=== PATIENT | male | born 1935 | race Caucasian/White ===

== ENCOUNTER 2020-06-20 16:26 | Observation (INO) | payer MEDICARE, SELFPAY ==
[2020-06-20 16:26] VITALS: BP 147/87; PULSE 81; RESP 18; O2SAT 95
[2020-06-20 16:27] VITALS: BP 136/110; PULSE 82; RESP 22; TEMP 36.6; O2SAT 96; BMI 22.8
--- NOTE | 2020-06-20 17:29 | CT_ITS ---
STUDY: CT BRAIN WITHOUT CONTRAST REASON FOR EXAM: Male, 84 years old. FALL AT 8AM RADIATION DOSAGE (If Supplied By Facility): CTDIvol = ( 44.99 ) mGy, DLP = ( 829.85 ) mGycm TECHNIQUE: Transaxial CT imaging of the brain was performed without administration of intravenous contrast material. Individualized dose optimization techniques were used for this CT. COMPARISON: No relevant priors. FINDINGS: Normal soft tissue structures. Normal calvarium. There is moderate cerebral atrophy with widening of the extra-axial spaces and ventricular dilatation. Normal white matter tracts of the cerebral hemispheres. Normal basal ganglia and thalami. Normal brainstem. Normal cerebellum. There is no intracranial hemorrhage. There are no findings of an acute ischemic infarction. Normal visualized paranasal sinuses. CT/Brain/Head without Contrast IMPRESSION: Chronic involutional changes of the brain. Electronically Signed: Bobby Etienne MD at 19:00 EDT , Service support ,
--- NOTE | 2020-06-20 17:29 | EKG12_ITS ---
Test Reason : FELL Blood Pressure : / mmHG Vent. Rate : 077 BPM Atrial Rate : 077 BPM P-R Int : 132 ms QRS Dur : 080 ms QT Int : 394 ms P-R-T Axes : 003 -42 040 degrees QTc Int : 445 ms Normal sinus rhythm Left axis deviation Nonspecific ST and T wave abnormality Abnormal ECG Confirmed by VALENTINA MATTHEWS, YANN ([id number]), purchase request editor BLAKE CHAPARRO ([id number]) on 06/22/2020 12:41:26 PM Referred By: Mirella Bishop Confirmed By:YANN MONTGOMERY MD
--- NOTE | 2020-06-20 17:31 | CT_ITS ---
STUDY: CT CERVICAL SPINE WITHOUT CONTRAST REASON FOR EXAM: Male, 84 years old. FALL AT 8AM RADIATION DOSAGE (If Supplied By Facility): CTDIvol = ( 14.76 ) mGy, DLP = ( 343.67 ) mGycm TECHNIQUE: High resolution transaxial imaging was performed without contrast material. Sagittal and coronal images were reconstructed. Individualized dose optimization techniques were used for this CT. COMPARISON: None FINDINGS: Normal craniovertebral junction. Normal anterior atlantoaxial articulation. Normal odontoid process. Diffuse demineralization patchy lucencies throughout all vertebral bodies. Slight anterior wedging at C4. There is reversal of the normal cervical lordosis. Normal vertebral bodies and posterior osseous elements. Multilevel disc space narrowing. C2-3: Normal endplates. Normal disc height and morphology. Normal central canal and intervertebral neuroforamina. C3-4: Normal endplates. Normal disc height and morphology. Normal central canal and narrowed intervertebral neuroforamina. C4-5: Normal endplates. Normal disc height and morphology. Normal central canal and narrowed intervertebral neuroforamina. C5-6: Normal endplates. Normal disc height and morphology. Normal central canal and narrowed intervertebral neuroforamina. C6-7: Normal endplates. Normal disc height and morphology. Normal central canal and narrowed intervertebral neuroforamina. C7-T1: Normal endplates. Normal disc height and morphology. Normal central canal and narrowed intervertebral neuroforamina. Normal visualized soft tissue structures. CT/Spine Cervical without Contras IMPRESSION: Diffuse demineralization and possible lucencies or lytic changes suspicious for metastatic disease. Mild anterior wedging C4 vertebral body. Recommend follow up MRI cervical spine with and without contrast. Electronically Signed: Bobby Etienne MD at 19:08 EDT , Service support ,
--- NOTE | 2020-06-20 17:32 | RAD_ITS ---
STUDY: X-RAY - LEFT SHOULDER REASON FOR EXAM: Male, 84 years old. fall, pain TECHNIQUE: 2 view(s) of the shoulder. COMPARISON: None. FINDINGS: Normal glenohumeral articulation. Normal acromioclavicular joint. Normal acromion. Spurring of the humeral head. Normal humeral head and visualized proximal humerus. The soft tissue structures are unremarkable. Normal visualized pulmonary apex. RAD/Shoulder min 2 Views IMPRESSION: No fracture Electronically Signed: Bobby Etienne MD at 18:50 EDT , Service support ,
--- NOTE | 2020-06-20 17:32 | RAD_ITS ---
STUDY: X-RAY - RIGHT SHOULDER REASON FOR EXAM: Male, 84 years old. fall, pain TECHNIQUE: 2 view(s) of the shoulder. COMPARISON: 09-04-15 right shoulder FINDINGS: Normal glenohumeral articulation. Normal acromioclavicular joint. Normal acromion. Well-corticated defect humeral neck. Normal humeral head and visualized proximal humerus. The soft tissue structures are unremarkable. Normal visualized pulmonary apex. RAD/Shoulder min 2 Views IMPRESSION: Probable old humeral neck fracture. No acute fracture noted. Electronically Signed: Bobby Etienne MD at 18:53 EDT , Service support ,
--- NOTE | 2020-06-20 17:32 | RAD_ITS ---
STUDY: X-RAY - LEFT ELBOW REASON FOR EXAM: Male, 84 years old. fall, pain TECHNIQUE: 3 view(s) of the elbow. COMPARISON: None. FINDINGS: Normal visualized humerus, radius and ulna. Normal radiocapitellar and ulnotrochlear articulations. The soft tissue structures are unremarkable. RAD/Elbow min 3 Views IMPRESSION: Normal x-ray examination of the elbow. Electronically Signed: Bobby Etienne MD at 18:49 EDT , Service support ,
--- NOTE | 2020-06-20 17:34 | ED.VISSUMM ---
- ER Visit Summary Date of Service: 06/20/20 Chief Complaint: Fall History of Present Illness: The patient is a 84 M who presents for a fall that occurred this morning. Patient states he lost his balance and fell. Patient states he was unable to ambulate after the fall. Patient states the pain is worse over his back, bilateral shoulders, bilateral knees, and bilateral hips. Patient also admits to some pain in his neck. Patient describes the pain as throbbing. Patient states the pain is worse with weightbearing. Patient denies any head injury or loss of consciousness. Patient denies any syncopal episodes. Physical Examination: Vital signs are stable. Patient is afebrile. Patient is in no acute distress. Oral mucosa is pink and moist. Neck is supple. Trachea is midline. There is no JVD. Heart was regular rate and rhythm. Lungs are clear and equal bilaterally. Abdomen is soft. Bowel sounds are normal. There is no tenderness. Cranial nerves II through XII are intact. There are no focal motor or sensory deficits. Skill skeletal exam reveals tenderness over the right cervical paraspinal muscles. There is mild midline tenderness. There is also tenderness over the shoulders bilaterally. There is mild tenderness over the left elbow. There is adequate range of motion of the shoulders and elbows bilaterally. There is minimal tenderness over the knees bilaterally. There is no joint effusion noted. There is good range of motion. Radial and pedal pulses are equal bilaterally. There are no obvious deformities. Test Results: EKG showed normal sinus rhythm with a rate of 77. There are nonspecific ST - T wave changes. CBC shows a leukocytosis of 14.6. Hemoglobin was 16.6. Comprehensive metabolic profile showed a slightly elevated bilirubin of 2.1. The remaining liver function tests were within normal limits. Urinalysis does not show any evidence of urinary tract infection. Troponin was normal. CT scan of the brain was obtained. There are chronic changes. There is no acute intracranial abnormality. CT scan of the cervical spine was obtained. There is diffuse demineralization and possible lucencies or lytic changes suspicious for metastatic disease. X-rays of the shoulders bilaterally and left elbow were obtained. There is no acute fracture. These were all interpreted by the radiologist and reviewed by myself. Emergency Department Course and Treatment: Patient was given IV fluids. Patient was advised of his findings. Patient still feels weak and does not feel like he can ambulate. Case was discussed with the hospitalist, Dr. Bishop. She will admit the patient for observation. Patient understood and was agreeable with the plan. All questions were answered. Disposition: Admit to hospital Impression: Generalized weakness This note was generated with [employer] dictation software. It may contain incorrect words, spelling, and punctuation that were not noted in review of the chart prior to signing ED Disposition - Plan for ED Patient: Disposition: Acute Care Hospital [facility] Diagnosis: Generalized weakness Referrals: Denis Tanner III, MD [Primary Care Provider] -
--- NOTE | 2020-06-20 18:20 | RAD_ITS ---
STUDY: X-RAY CHEST REASON FOR EXAM: Male, 84 years old. fall, pain TECHNIQUE: Single frontal view of the chest. COMPARISON: 09-08-15 FINDINGS: Increased interstitial markings at the lung bases. There is no demonstrated pleural abnormality. Normal size heart. Normal mediastinum and faviola. Normal visualized pulmonary arteries. Normal visualized aortic arch and descending thoracic aorta. Normal visualized thoracic spine. Normal visualized ribs, clavicles, and shoulders. There is no demonstrated abnormality of the visualized soft tissue structures of the upper abdomen. RAD/Chest 1 View (Portable) IMPRESSION: Increased interstitial markings at the lung bases Electronically Signed: Bobby Etienne MD at 18:55 EDT , Service support ,
[2020-06-20 18:22] LABS: Absolute Lymphocyte Count 1.79 X10^3/uL (0.83-4.51); Absolute Neutrophil Count 11.1 X10^3/uL (2.0-7.7); Basophil# 0.04 X10^3/uL; Basophil% 0.3 % (0-1); Eosinophil# 0.12 X10^3/uL; Eosinophils% 0.8 % (0-5); Hematocrit 49.7 % (40-54); Hemoglobin 16.6 g/dL (13.0-16.5); Lymphocyte # 1.79 X10^3/ul (4.0); Lymphocyte % 12.3 % (19-41); Mean Corp Hgb Conc 33.4 g/dL (32-36); Mean Corpuscular Hgb 31.2 pg (27.0-32.0); Mean Corpuscular Volume 93.4 fL (80-94); Mean Platelet Vol. 10.3 fl (6.2-12.0); Monocyte# 1.47 X10^3/uL; Monocyte% 10.1 % (0-10); NRBC Flagged by Analyzer 0 % (0-5); Neutrophil # 11.12 X10^3/uL (2.7-7.7); Neutrophil % 76.1 % (47-70); Platelet Count 151 K/mm3 (150-450); RBC Distribution Width CV 13.9 % (11.6-14.6); RBC Distribution Width SD 47.8 fl (35.1-43.9); Red Blood Count 5.32 M/mm3 (4.6-6.2); White Blood Count 14.6 K/mm3 (4.4-11.0)
[2020-06-20 18:34] VITALS: BP 143/83; PULSE 99; RESP 24; O2SAT 96
[2020-06-20 19:51] LABS: ALB/GLOB Ratio 1.1 RATIO (0.9-2.4); Albumin, Serum 3.3 g/dL (3.2-5.0); BUN 20 mg/dL (7-18); BUN/Creat Ratio 26.3 RATIO (10-20); Calcium,Total 8.8 mg/dL (8.5-10.1); Creatinine, Serum 0.76 mg/dL (0.70-1.30); EST Glomerular Filtration Rate 104 mL/min (>60); Est Glom Filt Rate - Afr Amer 126 mL/min (>60); Estimated Creatinine Clearance 57.24 ml/min; Globulin 3.1 g/dL (2.2-4.2); Glucose 95 mg/dL (74-106); Protein, Total 6.4 g/dL (6.4-8.2)
[2020-06-20 19:52] LABS: AST(SGOT) 22 U/L (15-37); Alanine Aminotransfer ALT/SGPT 24 U/L (16-61); Alkaline Phosphatase 81 U/L (45-117); Anion Gap 10 (5-15); Chloride 114 mmol/L (98-107); Potassium 4.1 mmol/L (3.5-5.1); Sodium Level 145 mmol/L (136-145)
[2020-06-20 19:53] LABS: CPK Total, Creatine Kinase 130 U/L (39-308)
[2020-06-20 21:00] VITALS: BP 162/139; PULSE 73; RESP 26
[2020-06-20 22:05] LABS: Bacteria 0 SEEN /hpf (None Seen); Red Blood Cells-Urine 0 SEEN /hpf (0-5); Squamous Epithelial Cells - UA 0 SEEN /hpf (0-5)
[2020-06-20 22:11] LABS: Color, Urine Yellow (Yellow); Glucose, Dipstick Normal (Normal); Ketone-Dipstick Negative (Negative); Leukocyte Esterase-Dipstick 25 /ul (Negative); Nitrite-Dipstick Negative (Negative); Occult Blood-Urine 10 /ul (Negative); Protein-Dipstick 15 mg/dl (Negative); Urine Bilirubin Dipstick Negative (Negative); Urine Clarity Clear (Clear); Urine Urobilinogen Normal (Normal)
[2020-06-20 22:22] LABS: Mucous, Urine RARE /hpf (<or=2+); White Blood Cells 0-5 SEEN /hpf (0-5)
--- NOTE | 2020-06-20 22:42 | HP.PCM_ITS ---
History of Present Illness Date of Admission: 06/20/20 Chief Complaint: mechanical fall The patient is a 84 year old M with a past medical history as outlined was admitted through the ED on 06/20/2020 with a complaint of mechanical falls. Patient states he fell on the day prior to admission. He states he just felt weak and tripped and his knees gave way. He landed on the floor and was unable to get up until his daughter got home and called the squad. He denied any blurred vision, lightheadedness or dizziness, chest pain, and denies any passing out. He denies any palpitations, nausea vomiting. Review of symptoms otherwise negative. Patient states the last time he felt like this was about 5 years ago. He does admit to having a poor appetite. He denies any fever or chills or any frequency with urination. Review of symptoms otherwise negative. Vitals show temperature of 97.9 Fahrenheit with blood pressure of 162/139 with pulse rate of 73 respiratory rate of 26. He was saturating at 96% on room air. CBC showed WBC of 14.6 with hemoglobin of 16.6 and chemistry was essentially unremarkable apart from total bilirubin of 2.1. Initial troponin was less than 0.015. CT of the brain showed no acute intracranial process and showed chronic involutional changes and cervical spine CT showed diffuse demineralization and possible lucencies or lytic changes suspicious for metastatic disease with mild anterior wedging of the C4 vertebral body. This x-ray showed increased interstitial markings at the lung bases. He has been admitted to be managed for debility due to mechanical fall. 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 Denies: Chills, Fever, Weight Change Eyes: Denies: Blurred vision HEENT: Denies: Head Aches, Sinus Congestion, Sinus Drainage Cardiovascular: Denies: Chest Pain, Chest Pressure, Palpitations Respiratory: Denies: Cough, Shortness of Breath, Shortness of breath at rest, Shortness of breath upon exertion, Sputum production Gastrointestinal: Denies: Abdominal Pain, Nausea, Vomiting Genitourinary: Denies: Dysuria, Frequency Musculoskeletal: Denies: Joint Pain, Joint Tenderness Skin: Denies: Rash, Wounds Neurological: Denies: Numbness, Tingling, Focal weakness Psychiatric: Denies: Anxiety, Depression, Homicidal Ideations, Suicidal Ideations Hematologic/ Lymphatic: Denies: Easy Bruising, Easy Bleeding VTE Information - Inpt Only VTE Present on Admission: No VTE Pharm Prophylaxis ordered?: Yes Patient Problems: Active and Suspected Problems Generalized weakness (Acute) - Physical Exam Vitals/I&O's: Vital Signs Temp Pulse Resp BP Pulse Ox 97.9 F 73 26 H 162/139 H 96 06/20/20 16:27 06/20/20 21:00 06/20/20 21:00 06/20/20 21:00 06/20/20 18:34 Oxygen Delivery Method Room Air Weight: 159 lb 6.307 oz Body Mass Index (BMI) 22.8 General: Alert, Oriented x3, Cooperative, No apparent distress, Lethargic HEENT: Atraumatic, PERRLA, EOMI, Normocephalic Oral: Dry Mucosa Neck: Supple, No JVD, Negative Carotid Bruits Lungs: Clear to auscultation, Normal air movement, No rhonchi, No wheeze, No rales Cardiovascular: Regular rate, Regular Rhythm, Normal S1, Normal S2, No murmurs Abdomen: Bowel Sounds Present, Soft, Non Tender, Non-Distended, No Hepato- splenomegaly Extremities: No clubbing, No cyanosis, No edema, Capillary Refill Less than 3 Seconds Skin: No rashes, No breakdown Musculoskeletal: No Tenderness to Palpation of Joints or Extremities Lymphatic: No Cervical, Supraclavicular, or Inguinal Adenopathy Neurological: Cranial nerves II-XII grossly intact, Neuro grossly intact, Motor Exam 5/5 strength throughout Psych/Mental Status: Normal Affect, Appropriate, Alert and oriented to time, place, person, mood and affect Laboratory Results 06/20/20 18:00: WBC 14.6 H, RBC 5.32, Hgb 16.6 H, Hct 49.7, MCV 93.4, MCH 31.2, MCHC 33.4, RDW Std Deviation 47.8 H, RDW Coeff of Susan 13.9, Plt Count 151, MPV 10.3, Immature Gran % (Auto) 0.400, Neut % (Auto) 76.1 H, Lymph % (Auto) 12.3 L, Falls % (Auto) 10.1 H, Eos % (Auto) 0.8, Baso % (Auto) 0.3, Absolute Neuts (auto) 11.1 H, Absolute Lymphs (auto) 1.79, Nucleated RBC % 0 06/20/20 18:00: Sodium 145, Potassium 4.1, Chloride 114 H, Carbon Dioxide 21.0, Anion Gap 10, BUN 20 H, Creatinine 0.76, Estim Creat Clear Calc 57.24, Est GFR (MDRD) Af Amer 126, Est GFR (MDRD) Non-Af 104, BUN/Creatinine Ratio 26.3 H, Glucose 95, Calcium 8.8, Total Bilirubin 2.10 H, AST 22, ALT 24, Alkaline Phosphatase 81, Troponin I < 0.015, Total Protein 6.4, Albumin 3.3, Globulin 3.1, Albumin/Globulin Ratio 1.1 06/20/20 18:00: Total Creatine Kinase 130 06/20/20 22:00: Urine Color Yellow, Urine Clarity Clear, Urine pH 5.0, Ur Specific [place] 1.020, Urine Protein 15 H, Urine Glucose (UA) Normal, Urine Ketones Negative, Urine Occult Blood 10 H, Urine Nitrite Negative, Urine Bilirubin Negative, Urine Urobilinogen Normal, Ur Leukocyte Esterase 25 H, Urine RBC 0 SEEN, Urine WBC 0-5 SEEN, Ur Squamous Epith Cells 0 SEEN, Urine Bacteria 0 SEEN, Urine Mucus RARE Diagnostic Data Brain CT 06/20/20 17:29 IMPRESSION: Chronic involutional changes of the brain. Electronically Signed: Bobby Etienne MD at 19:00 EDT , Service support , Cervical Spine CT 06/20/20 17:31 IMPRESSION: Diffuse demineralization and possible lucencies or lytic changes suspicious for metastatic disease. Mild anterior wedging C4 vertebral body. Recommend follow up MRI cervical spine with and without contrast. Electronically Signed: Bobby Etienne MD at 19:08 EDT , Service support , Elbow X-Ray 06/20/20 17:32 IMPRESSION: Normal x-ray examination of the elbow. Electronically Signed: Bobby Etienne MD at 18:49 EDT , Service support , Shoulder X-Ray 06/20/20 17:32 IMPRESSION: Probable old humeral neck fracture. No acute fracture noted. Electronically Signed: Bobby Etienne MD at 18:53 EDT , Service support , Chest X-Ray 06/20/20 18:20 IMPRESSION: Increased interstitial markings at the lung bases Electronically Signed: Bobby Etienne MD at 18:55 EDT , Service support , Assessment/Plan All Active Problems Generalized weakness (Acute) Fracture, intertrochanteric, right femur (Acute) Fracture of neck of humerus (Acute) Normocytic anemia due to blood loss (Acute) Depression (Acute) Suicidal ideation (Acute) 84 y/o admitted with a complaint of mechanical fall 1. Debility due to mechanical fall * admit to [facility] * brain CT showed no acute intracranial [process * CT of the cervical spine showed diffuse demineralisation and possible lucencies or lytic changes suspicious for metastatic disease, as wella s mild anterior wedging of C4 vertebral body * consult PT/OT * fall precautions * PO tylenol for pain and IV morphine as well as PO oxycodone prn for pain * 2. SIRS criteria * wbc is 14.6 and patient has RR Of 16 * CXR showed increased interstitial markings at the lung base, with no evidence of pneumonia. He also denies being short of breath * UA showed no evidence of UTI * will monitor for now; wbc may be reactive. consider starting antibiotics if wbc trends upwards * 3. ?Metastatic bone lesion * CT cervical spine findings as above * patient has never had a colonoscopy, and denies any urinary findings. * per discussion with patient and his daughter, patient doesnt want any further workup of the cervical spine findings, as he wouldnt want to be treated for any cancer that can possibly be found. He would prefer to just leave things as is. * We will therefore not work-up for any possible source of cancer. * DVT prophylaxis: Lovenox CODE STATUS: DNR CCA * Patient and daughter counseled extensively about different types of CODE STATUS including full code, DNR CCA and DNR CCA. Patient elects to be DNRCCA. * Total [id number] time 17 minutes. OBSV E&M: 48309 Initial observation care L2 Procedures: 11530 Advncd Care Plan 30 Min
[2020-06-20 23:00] VITALS: BP 147/67; PULSE 74; RESP 19; TEMP 36.6; O2SAT 97
[2020-06-21] VITALS (10 sets, daily range): BP systolic 97–149; BP diastolic 47–103; PULSE 64–77; RESP 16–18; TEMP 36.6–36.9; O2SAT 93–97; BMI 19.1; BMI 19.2
[2020-06-21] MEDS: Acetaminophen 325 MG Tablet 650 MG PO ×2 (00:46→16:06)
[2020-06-21 05:59] LABS: Absolute Lymphocyte Count 1.93 X10^3/uL (0.83-4.51); Basophil# 0.06 X10^3/uL; Basophil% 0.6 % (0-1); Eosinophil# 0.22 X10^3/uL; Eosinophils% 2.4 % (0-5); Hematocrit 42.8 % (40-54); Hemoglobin 14.3 g/dL (13.0-16.5); Lymphocyte # 1.93 X10^3/ul (4.0); Lymphocyte % 20.9 % (19-41); Mean Corp Hgb Conc 33.4 g/dL (32-36); Mean Corpuscular Hgb 31.5 pg (27.0-32.0); Mean Corpuscular Volume 94.3 fL (80-94); Mean Platelet Vol. 10.1 fl (6.2-12.0); Monocyte# 0.98 X10^3/uL; Monocyte% 10.6 % (0-10); NRBC Flagged by Analyzer 0 % (0-5); Neutrophil # 6.02 X10^3/uL (2.7-7.7); Neutrophil % 65.2 % (47-70); Platelet Count 135 K/mm3 (150-450); RBC Distribution Width CV 14.1 % (11.6-14.6); RBC Distribution Width SD 48.1 fl (35.1-43.9); Red Blood Count 4.54 M/mm3 (4.6-6.2); White Blood Count 9.2 K/mm3 (4.4-11.0)
[2020-06-21 06:18] LABS: Anion Gap 4 (5-15); BUN 19 mg/dL (7-18); BUN/Creat Ratio 28.3 RATIO (10-20); Calcium,Total 8.2 mg/dL (8.5-10.1); Chloride 115 mmol/L (98-107); Creatinine, Serum 0.67 mg/dL (0.70-1.30); EST Glomerular Filtration Rate 120 mL/min (>60); Est Glom Filt Rate - Afr Amer 145 mL/min (>60); Estimated Creatinine Clearance 47.98 ml/min; Glucose 106 mg/dL (74-106); Sodium Level 142 mmol/L (136-145)
--- NOTE | 2020-06-21 10:00 | CASEMGMT ---
RN TRACE Face to Face with patient for initial transition planning/care coordination assessment. RN CM introduced self and role at [facility]. Patient lying in bed, alert and oriented. Patient willing to participate in assessment and is able to answer all questions appropriately. Care providers, pharmacy, and demographics verified. Patient wishes to discharge home, will possibly go to SNF if recommended. Patient states he has no further needs or concerns at this time. CM to follow for discharge planning needs that may arise. PCP: Flores Specialists: None Preferred Pharmacy: [facility] Insurance: [employer] [facility] Prescription Benefit: yes Living Will/HPOA: yes, daughter Frantz Kapoor LNOK: daughter Living Arrangements: Patient lives with daughter in a 2 story home with bed and bath on first floor. Patient states he is independent for self care at home. Transportation: daughter DME/HHC: Patient states he has grab bars, shower chair, and walker at home. Patient has been to [facility] in the past. Patient denies previous C. Disposition Plan: TBD by course of treatment and how patient progresses with therapy. Shirley BROCK, RN, CM
--- NOTE | 2020-06-21 11:19 | CASEMGMT ---
Addendum entered by Shirley Salazar 06/21/20 15:34: SW updated that pt will be speaking to his daughter regarding possible SNF placement. SW to follow up with pt tomorrow. Addendum entered by Shirley Salazar 06/21/20 13:12: SW received message from Kathi at [facility] who states administration has stated that [facility] is to not take [place] patients at this time. SW received call from Liliane in TCU who states [facility] doesn't have any beds available until Saturday. SW back in to speak with pt. SW updated pt that [facility] and [facility] is not able to accept pt. SW asked pt for additional choices, pt states he has none. SW informed pt that it took two people to get him up today and asked how pt is going to manage that at home and if pt was back to his baseline. Pt states well no I don't think I am back to my baseline. SW informed pt then that he should consider going somewhere for short term rehabilitation. Pt again denied. CHEMA asked pt about HHC then and pt states I don't know if I need that. CHEMA informed pt that SW and RN TRACE can see how pt does tomorrow with PT/OT. Pt states understanding. Original Note: Social Work Note SW updated that pt worked with PT/OT recommendation is SNF. SW in to speak with pt. CHEMA introduced self and role at [facility]. Pt is alert and orientated x3. CHEMA spoke with pt regarding SNF. Pt states the only SNF I would consider is [facility] as my is there. CHEMA asked pt about returning to [facility] as he has been there before and pt denied. CHEMA explained referral process and that pt would need pre-cert. CHEMA placed a call to [facility], left message for admissions. CHEMA also placed a call to Liliane in TCU and left message inquiring about bed availability. SW waiting for call back. Plan: TBD Shirley Salazar TEAMCENTER SOLUTION ARCHITECT, SERVICE CENTER TECHNICIAN
[2020-06-21 14:45] LABS: Probe Check PASS; Specimen Processing Control PASS
--- NOTE | 2020-06-21 15:55 | CASEMGMT ---
BOWMAN form completed at this time. Patient voiced understanding and signed form. Signed form placed on chart, copy provided to patient. Patient voice no concerns or questions at this time.
--- NOTE | 2020-06-21 18:01 | PCM.PROGNOTE ---
Patient Problems: Active and Suspected Problems Generalized weakness (Acute) Subjective: Patient was seen and examined today, he will be in need of short-term rehab services, initially the patient wanted to go to [facility] long-term [facility] but his insurance does not cover this facility, he does not want to go to [facility] [place] and he defers to his daughter to make a decision about what long term he will go to. Patient has no complaints of any shortness of breath or chest discomfort today, his affect is flat. - Physical Exam Vitals/I&O's: Vital Signs Temp Pulse Resp BP Pulse Ox 98.3 F 77 16 127/75 H 96 06/21/20 16:01 06/21/20 16:01 06/21/20 16:01 06/21/20 16:01 06/21/20 16:01 Oxygen Delivery Method Room Air Weight: 60.6 kg Body Mass Index (BMI) 19.1 Intake and Output for Last 24 Hours 06/19/20 06/20/20 06/21/20 23:59 23:59 23:59 Intake Total 500 / 500 Balance 500 / 500 General: Alert, Oriented x3, Cooperative, No apparent distress, Well developed HEENT: Atraumatic, PERRLA, EOMI, Normocephalic Oral: Moist Mucosa Neck: Supple, No JVD, Trachea Midline, Thyroid Normal Size and Texture Lungs: Clear to auscultation, Normal air movement, No rhonchi, No wheeze, No rales Cardiovascular: Regular rate, Regular Rhythm, Normal S1, Normal S2, No murmurs, PMI Normal, No rub noted, No Gallop Abdomen: Bowel Sounds Present, Soft, Non Tender, Non-Distended, No hernias noted Extremities: No clubbing, No edema, Capillary Refill Less than 3 Seconds Skin: No rashes, No breakdown Musculoskeletal: No Tenderness to Palpation of Joints or Extremities Neurological: Cranial nerves II-XII grossly intact, Neuro grossly intact, Sensory exam intact to light touch and pain, Coordination normal Psych/Mental Status: Normal Affect, Appropriate, Alert and oriented to time, place, person, mood and affect Laboratory Results 06/20/20 18:00: WBC 14.6 H, RBC 5.32, Hgb 16.6 H, Hct 49.7, MCV 93.4, MCH 31.2, MCHC 33.4, RDW Std Deviation 47.8 H, RDW Coeff of Susan 13.9, Plt Count 151, MPV 10.3, Immature Gran % (Auto) 0.400, Neut % (Auto) 76.1 H, Lymph % (Auto) 12.3 L, [place] % (Auto) 10.1 H, Eos % (Auto) 0.8, Baso % (Auto) 0.3, Absolute Neuts (auto) 11.1 H, Absolute Lymphs (auto) 1.79, Nucleated RBC % 0 06/20/20 18:00: Sodium 145, Potassium 4.1, Chloride 114 H, Carbon Dioxide 21.0, Anion Gap 10, BUN 20 H, Creatinine 0.76, Estim Creat Clear Calc 57.24, Est GFR (MDRD) Af Amer 126, Est GFR (MDRD) Non-Af 104, BUN/Creatinine Ratio 26.3 H, Glucose 95, Calcium 8.8, Total Bilirubin 2.10 H, AST 22, ALT 24, Alkaline Phosphatase 81, Troponin I < 0.015, Total Protein 6.4, Albumin 3.3, Globulin 3.1, Albumin/Globulin Ratio 1.1 06/20/20 18:00: Total Creatine Kinase 130 06/20/20 22:00: Urine Color Yellow, Urine Clarity Clear, Urine pH 5.0, Ur Specific [place] 1.020, Urine Protein 15 H, Urine Glucose (UA) Normal, Urine Ketones Negative, Urine Occult Blood 10 H, Urine Nitrite Negative, Urine Bilirubin Negative, Urine Urobilinogen Normal, Ur Leukocyte Esterase 25 H, Urine RBC 0 SEEN, Urine WBC 0-5 SEEN, Ur Squamous Epith Cells 0 SEEN, Urine Bacteria 0 SEEN, Urine Mucus RARE 06/21/20 05:34: WBC 9.2, RBC 4.54 L, Hgb 14.3, Hct 42.8, MCV 94.3 H, MCH 31.5, MCHC 33.4, RDW Std Deviation 48.1 H, RDW Coeff of Susan 14.1, Plt Count 135 L, MPV 10.1, Immature Gran % (Auto) 0.300, Neut % (Auto) 65.2, Lymph % (Auto) 20.9, [place] % (Auto) 10.6 H, Eos % (Auto) 2.4, Baso % (Auto) 0.6, Absolute Neuts (auto) 6.0, Absolute Lymphs (auto) 1.93, Nucleated RBC % 0 06/21/20 05:34: Sodium 142, Potassium 4.0, Chloride 115 H, Carbon Dioxide 23.0, Anion Gap 4 L, BUN 19 H, Creatinine 0.67 L, Estim Creat Clear Calc 47.98, Est GFR (MDRD) Af Amer 145, Est GFR (MDRD) Non-Af 120, BUN/Creatinine Ratio 28.3 H, Glucose 106, Calcium 8.2 L 06/21/20 13:15: COVID-19 (RADHA) Negative Current Medications Acetaminophen (Tylenol) 650 mg PO Q6H PRN PRN PRN Reason: Pain Score 1-10/Temp > 100.7 F Last Admin: 06/21/20 16:06 Dose: 650 mg Documented by: Dextrose (D50w Syringe) 0 gm IV X1 PRN; Protocol PRN Reason: Hypoglycemia Glucagon () 1 mg IM .X1 PRN PRN Reason: Hypoglycemia Oxycodone HCl (Oxyir) 10 mg PO Q4H PRN PRN PRN Reason: Pain Score 4-10/10 Sodium Chloride () 10 - 40 ml IV UD PRN PRN Reason: SALINE FLUSH Medical Necessity - Tobacco Use Smoking Status: Former smoker Tobacco Use: Cigarettes Assessment/Plan All Active Problems Generalized weakness (Acute) Fracture, intertrochanteric, right femur (Resolved) Fracture of neck of humerus (Resolved) Normocytic anemia due to blood loss (Resolved) #1 generalized debility-patient will continue to see PT and OT, he will need temporary placement in a long-term facility #2 leukocytosis-resolved at this time, etiology unknown #[address] scan of neck indicating diffuse demineralization and possible lucencies or lytic changes suspicious for metastatic disease-according to the medical record, patient and the patient's daughter do not want this worked up at this time. OBSV E&M: 14473 Subsequent observation care L2
--- NOTE | 2020-06-21 18:15 | NURSING ---
[facility] Dtr present at desk and talking on phone to Dr. Lam at this time.
[2020-06-21] MEDS: 0.9% Saline Lock 10 ML Syringe IV (22:27)
[2020-06-22 04:58] VITALS: BP 105/62; PULSE 65; RESP 16; TEMP 37; O2SAT 95
[2020-06-22] MEDS: Acetaminophen 325 MG Tablet 650 MG PO (05:05)
--- NOTE | 2020-06-22 09:11 | CASEMGMT ---
Addendum entered by Shirley Salazar 06/22/20 14:31: Pt is likely discharging to TCU today. CHEMA placed a call to Liliane in TCU and updated her. CHEMA placed a call to pt's daughter Frantz and left message regarding likely discharge to TCU today. SW updated pt. Pt states understanding. Green sheet on chart as this worker is leaving soon for the day. Plan: TCU today Addendum entered by Shirley Salazar 06/22/20 13:12: SW received message from Liliane in TCU stating pre-cert has been obtained and pt is able to discharge today. CHEMA updated physician. Addendum entered by Shirley Salazar 06/22/20 11:27: SW received call from pt's daughter Frantz. CHEMA updated Frantz that a bed opened up at TCU here at [facility] and pt prefers to stay at [facility] TCU for rehabilitation. Frantz agreeable to TCU as well. CHEMA explained pre-cert process and that pt will remain at [facility] until pre-cert is obtained and then go over to TCU. CHEMA did fabrizio speak with Frantz regarding discharge plans from TCU including home with HHC, outpatient therapy, assisted living, long term care social worker care at [facility] etc. Frantz states understanding. Original Note: Social Work Note CHEMA spoke with Liliane in TCU again regarding bed availability. Liliane states she actually would have a bed available today or tomorrow for pt now. SW in to speak with pt. CHEMA updated pt that TCU at [facility] now has a bed available. Pt agreeable to [facility] TCU. Pt gave this worker permission to call his daughter to update her. CHEMA placed a call to pt's daughter, no answer, SW left message. CHEMA placed a call to Liliane in TCU and asked Liliane to submit for pre-cert. Plan: TCU pending pre-cert Shirley Salazar DELIVERY DRIVER ASSISTANT, NUT STEAMER
[2020-06-22 09:43] VITALS: BP 96/56; PULSE 67; RESP 18; TEMP 36.3; O2SAT 96
[2020-06-22] MEDS: oxyCODONE 5 MG Tablet 10 MG PO (09:47)
[2020-06-22 14:17] VITALS: BP 105/51; PULSE 61; RESP 16; TEMP 36.4; O2SAT 96
--- NOTE | 2020-06-22 16:29 | PCM.TXEXTCAR ---
- Diet 06/21/20 14:14 Diet: Regular Diet Food consistency:: Mechanical Soft/Ground Liquid Consistency:: Regular/Thin Type of Dietary Supplement:: Ensure Complete Is pt able to select menu?: No Diet Comments: very soft foods/ground meat/ edentulous - Routine Orders/Code [facility] - Wound(s) Left Elbow Wound Type: scabbed area - Therapies Physical Therapy: Eval and Treat Occupational Therapy: Eval and Treat - Problem/Diagnosis (1) Abnormal CT scan, cervical spine Status: Acute Comment: PATIENT WANTS NO WORKUP FOR THIS, SUSPICIOUS FOR POSSIBLE METASTAtIC CANCER Current Visit: Yes (2) Osteoarthritis Status: Acute Current Visit: Yes (3) Generalized weakness Status: Acute Comment: DEBILITY Current Visit: Yes - Allergies/Procedures Done in Hospital Allergies/Adverse Reactions: Allergies venom-honey bee [bee venom (honey bee)] Allergy (Verified 06/20/20 16:27) Anaphylaxis Procedures: None - Type of Care/Length of Stay Estimated LOS: Convalescent Care Less Than 30 days Type of Care Needed: Skilled Rehab Potential: Good Prognosis: Good - Additional Orders/Day of Discharge H&P will serve as current which was dated: 06/20/20 Day of Discharge: 06/22/20 - Dietary and Speech Recommendations Dietitian Recommendations/Changes: Will liberalize diet to regular to optimize intake. Continue Ensure at meals for additional stanley/protein needs. - Follow Up Care Primary Care Physician: Denis Tanner III, MD [Primary Care Provider] -
--- NOTE | 2020-06-24 08:44 | PCM.DC.SUM ---
Discharge Date and Diagnosis - Problem List Patient Problems: Active and Suspected Problems Debility (Acute) Fall (Acute) Weakness of both legs (Acute) Bony metastasis (Acute) Date of Admission: 06/20/20 Date of Discharge: 06/22/20 - Primary Discharge Diagnosis Acute Problems: Active Problems #1 generalized debility-patient will continue to see PT and OT, he will need temporary placement in a senior living facility #2 leukocytosis- etiology unknown #[address] scan of neck indicating diffuse demineralization and possible lucencies or lytic changes suspicious for metastatic disease Hospital Course and Treatment Operations: None, - - 09/05/15 Operative intervention w/ right hip open reduction and internal fixation with short intramedullary nailing performed. Procedures: None Summary of Care Provided: The patient is a 84 year old M was seen in the emergency room at [facility] after suffering a fall at his home, work-up in the emergency room revealed no acute fractures, however, the CT of the cervical spine there is noted to be evidence of lytic lesions suggesting a bony metastases. Patient did not want a work-up for this and to his daughter agreed. Patient was placed in observation status on [facility] 3, PT and OT saw the patient and recommended skilled therapy, patient agreed to go to an extended care facility for short-term rehab services. On 06/22/2020, patient was seen and examined: On examination he appeared frail and older than his stated age. Vital signs as documented. Skin warm and dry and without overt rashes. Neck without JVD, neck was supple, trachea midline, thyroid was normal. Lungs clear bilaterally, normal air movement was noted. Heart exam notable for regular rhythm, normal sounds and absence of murmurs, rubs or gallops. Abdomen unremarkable and without evidence of organomegaly, masses, or abdominal aortic enlargement. Bowel sounds are present, abdomen is not distended. Extremities nonedematous, no cyanosis was noted, no clubbing was noted. Neuro: Cranial nerves II through XII are grossly intact, no focal motor deficits were noted, sensation to light touch and pinprick intact, motor exam 5/5 throughout. Psych: Patient is alert and oriented x3, he does not appear anxious or depressed, he does not appear agitated. Patient was transferred to the rehab unit at [facility] for further skilled inpatient services on 06/22/2020. Patient Problems: Active and Suspected Problems Debility (Acute) Fall (Acute) Weakness of both legs (Acute) Bony metastasis (Acute) - Physical Exam Vitals/I&O's: Vital Signs Temp Pulse Resp BP Pulse Ox 97.5 F L 61 16 105/51 L 96 06/22/20 14:17 06/22/20 14:17 06/22/20 14:17 06/22/20 14:17 06/22/20 14:17 Oxygen Delivery Method Room Air Weight: 60.6 kg Body Mass Index (BMI) 19.1 Intake and Output for Last 24 Hours 06/22/20 06/23/20 06/24/20 23:59 23:59 23:59 Intake Total 400 / 400 Output Total 250 / 250 Balance 150 / 150 Home Medications: Medications to take at Discharge Acetaminophen [Tylenol Tablet] 650 mg PO Q6H PRN PRN tab 06/22/20 Hydrocodone/Acetaminophen [[place] 5-325 Tablet] 1 ea PO Q4H PRN PRN #10 tab 06/22/20 Following Prescriptions Were Given to Patient: Hydrocodone/Acetaminophen [[place] 5-325 Tablet] 1 ea PO Q4H PRN PRN #10 tab PRN Reason: Pain Score 1-10/10 Prescription Printed Primary Care Physician: Denis Tanner III, MD [Primary Care Provider] - Disposition: Longterm facility Minutes spent on discharge:: 31 Patient Condition:: Stable Medical Necessity - Tobacco Use Smoking Status: Former smoker Tobacco Use: Cigarettes Meaningful Use Info Meaningful Use Diagnoses (Choose all that apply): None applicable OBSV E&M: 82088 Observation care discharge
== END 2020-06-22 18:45 | disposition skilled nursing facility (03) ==
LOC: ED 22:48 → MS3 23:44
PROVIDERS: Admitting Provider Student in an Organized Health Care Education/Training Program; Emergency Provider Emergency Medicine; PCP Family Medicine; Referring Provider Student in an Organized Health Care Education/Training Program; Visit Provider Internal Medicine
DX: R53.81 Other malaise (principal); C79.51 Secondary malignant neoplasm of bone; D72.829 Elevated white blood cell count, unspecified; R94.8 Abnormal results of function studies of other organs and systems; M25.512 Pain in left shoulder; M25.511 Pain in right shoulder; M25.552 Pain in left hip; M25.551 Pain in right hip; M25.562 Pain in left knee; M25.561 Pain in right knee; M54.2 Cervicalgia; Z87.891 Personal history of nicotine dependence; R53.1 Weakness
CPT/HCPCS: 70450; 71045; 72125; 73030; 73080; 80048; 80053; 81001; 82550; 84484; 85025; 87635; 93005; 94799; 96360; 96361; 97110; 97116; 97162; 97166; 97530; 97802; 99218; 99285; J7030; A4216; G0378; U0003

== ENCOUNTER 2020-06-22 18:50 | Inpatient (IN) | payer MEDICARE, SELFPAY ==
[2020-06-21 00:16] VITALS: BMI 19.1
--- NOTE | 2020-06-22 20:40 | HP.PCM_ITS ---
Problem List (1) Debility Status: Acute (2) Fall Status: Acute (3) Weakness of both legs Status: Acute (4) Bony metastasis Status: Acute History of Present Illness Date of Admission: 06/22/20 Chief Complaint: Here for rehabilitation, strengthening, prior to discharge home with family. 06/20/2020 The patient is a 84 year old Male with below past medical history presented to [facility] Emergency Department with fall. 06/20/2020 CT brain chronic involutional changes of brain. 06/20/2020 EKG normal sinus rhythm, left axis deviation, nonspecific ST&T wave abnormality. 06/20/2020 CT cervical spine ? metastatic disease, mild wedging C4 vertebral body. 06/20/2020 X-ray left elbow normal. 06/20/2020 X-ray right shoulder probable old humeral neck fracture. 06/20/2020 Chest X-ray increase interstitial markings at bases. Lost balance, fell, unable to walk afterwards. Pain in neck, back, bilateral shoulders, bilateral knees, bilateral hips. Throbbing pain. WBC 14.6, Hemoglobin 16.0, Bili 2.1. UA negative, Troponin negative. IV Fluids given, Too walk to walk, unable to go home. 06/20/2020 Admit to Hospital. Tylenol, IV Morphine, PO oxycodone for pain control. PT/OT. Monitor for signs and symptoms of infection. Patient and patient daughter declined further workup of ? metastatic disease in neck. 06/21/2020 PT/OT for [facility]. Elevated WBC resolved. 06/22/2020 Admit to TCU with debility, here for rehabilitation, strengthening, prior to discharge home with family. Past Medical History Allergies venom-honey bee [bee venom (honey bee)] Allergy (Verified 06/20/20 16:27) Anaphylaxis Home Medications: Ambulatory Orders Medication Instructions Recorded Acetaminophen [Tylenol Tablet] 650 mg PO Q6H PRN PRN tab 06/22/20 Hydrocodone/Acetaminophen [[place] 1 ea PO Q4H PRN PRN #10 tab 06/22/20 5-325 Tablet] Surgical History: - - right hip surgery Psychiatric History: No pertinent psych hx Lives: With Family Smoking Status: Former smoker Tobacco Use: Cigarettes Alcohol: None Drugs: None - *Family History Maternal History Items: No pertinent history Paternal History Items: No pertinent history Review of Systems Constitutional: Reports: Weakness. Denies: Chills, Fever, Weight Change HEENT: Denies: Head Aches, Sinus Congestion, Sinus Drainage Cardiovascular: Denies: Chest Pain, Palpitations Respiratory: Denies: Cough, Shortness of breath at rest, Sputum production Gastrointestinal: Denies: Abdominal Pain, Nausea, Vomiting Genitourinary: Denies: Dysuria Musculoskeletal: Denies: Joint Pain, Joint Tenderness Skin: Denies: Rash, Wounds Neurological: Denies: Numbness, Tingling, Focal weakness Psychiatric: Denies: Anxiety, Depression, Homicidal Ideations, Suicidal Ideations Hematologic/ Lymphatic: Denies: Easy Bruising, Easy Bleeding VTE Information - Inpt Only VTE Present on Admission: No VTE Mechan Device Prophylaxis: Knee High FRANDY Hose VTE Pharm Prophylaxis ordered?: Yes Patient Problems: Active and Suspected Problems Debility (Acute) Fall (Acute) Weakness of both legs (Acute) Bony metastasis (Acute) - Physical Exam Vitals/I&O's: Body Mass Index (BMI) 19.1 General: Alert, Oriented x3, Cooperative HEENT: Atraumatic, PERRLA, EOMI, Normocephalic Neck: Supple, No JVD, Negative Carotid Bruits Lungs: Clear to auscultation, Normal air movement Cardiovascular: Regular rate, No murmurs Abdomen: Bowel Sounds Present, Soft, Non Tender Extremities: No edema, Capillary Refill Less than 3 Seconds Skin: No rashes, No breakdown Musculoskeletal: No Tenderness to Palpation of Joints or Extremities Neurological: Cranial nerves II-XII grossly intact Psych/Mental Status: Normal Affect, Appropriate Current Medications Acetaminophen (Tylenol) 650 mg PO Q6H PRN PRN PRN Reason: Pain Score 1-10/Temp > 100.7 F Hydrocodone Bitart/Acetaminophen ([place] 5mg-325mg) 1 tablet PO Q4H PRN PRN PRN Reason: Pain Score 1-10/10 Tuberculin PPD (Tubersol, Aplisol, Ppd) 5 tu ID X1 ONE Stop: 06/23/20 10:01 Tuberculin PPD (Tubersol, Aplisol, Ppd) 5 tu ID X1 ONE Stop: 06/30/20 10:01 Assessment/Plan All Active Problems Abnormal CT scan, cervical spine (Acute) Osteoarthritis (Acute) Debility (Acute) Fall (Acute) Weakness of both legs (Acute) Bony metastasis (Acute) Generalized weakness (Acute) Fracture, intertrochanteric, right femur (Resolved) Fracture of neck of humerus (Resolved) Normocytic anemia due to blood loss (Resolved) 84 year old male with below past medical history hospitalized for fall, weakness, complicated by metastatic disease of neck, patient declining workup, admitted to TCU with debility, here for rehabilitation, strengthening, prior to discharge home with family. * Debility - PT/OT. * Pain - Tylenol 1000MG Q6H PRN pain (1-3), Tramadol 50MG Q6H PRN pain (4-5), Oxycodone 5MG Q4H PRN pain (6-10). * Bowel - Miralax 17GM daily, Senna/colace 1 tablet BID, Dulcolax 10MG ND daily PRN. * Adult immunization - Administer Prevnar 13, Pneumovax 23, Fluzone as appropriate. * DVT prophylaxis - Lovenox 40MG SC daily. * Bony metastasis cervical spine - No workup desired by resident or resident family. Resident admits to recent 20 pound weight loss, loss of appetite, cancer definitely in differential.
[2020-06-22] MEDS: oxyCODONE 5 MG Tablet PO (21:30)
[2020-06-22 21:31] VITALS: BMI 20.1
[2020-06-22 21:39] VITALS: BMI 20.1
[2020-06-22 21:59] VITALS: BP 126/72; PULSE 83; RESP 16; TEMP 37.3; O2SAT 97
[2020-06-23 05:26] VITALS: BP 112/58; PULSE 73; RESP 16; TEMP 37.2; O2SAT 92
[2020-06-23] MEDS: oxyCODONE 5 MG Tablet PO ×2 (05:30→20:32)
[2020-06-23 05:41] LABS: Absolute Lymphocyte Count 2.06 X10^3/uL (0.83-4.51); Absolute Neutrophil Count 4.7 X10^3/uL (2.0-7.7); Basophil# 0.04 X10^3/uL; Basophil% 0.5 % (0-1); Eosinophil# 0.27 X10^3/uL; Eosinophils% 3.2 % (0-5); Hematocrit 39.9 % (40-54); Hemoglobin 13.2 g/dL (13.0-16.5); Lymphocyte # 2.06 X10^3/ul (4.0); Lymphocyte % 24.3 % (19-41); Mean Corp Hgb Conc 33.1 g/dL (32-36); Mean Corpuscular Hgb 31.1 pg (27.0-32.0); Mean Corpuscular Volume 93.9 fL (80-94); Mean Platelet Vol. 9.9 fl (6.2-12.0); Monocyte# 1.34 X10^3/uL; Monocyte% 15.8 % (0-10); NRBC Flagged by Analyzer 0 % (0-5); Neutrophil # 4.72 X10^3/uL (2.7-7.7); Neutrophil % 55.8 % (47-70); Platelet Count 133 K/mm3 (150-450); RBC Distribution Width CV 13.9 % (11.6-14.6); RBC Distribution Width SD 47.3 fl (35.1-43.9); Red Blood Count 4.25 M/mm3 (4.6-6.2); White Blood Count 8.5 K/mm3 (4.4-11.0)
[2020-06-23 05:53] LABS: Anion Gap 2 (5-15); BUN 23 mg/dL (7-18); BUN/Creat Ratio 29.8 RATIO (10-20); Calcium,Total 8.4 mg/dL (8.5-10.1); Chloride 110 mmol/L (98-107); Creatinine, Serum 0.77 mg/dL (0.70-1.30); EST Glomerular Filtration Rate 102 mL/min (>60); Est Glom Filt Rate - Afr Amer 123 mL/min (>60); Estimated Creatinine Clearance 50.36 ml/min; Glucose 99 mg/dL (74-106); Potassium 4.3 mmol/L (3.5-5.1); Sodium Level 138 mmol/L (136-145)
[2020-06-23] MEDS: Mag Hydrox/Al Hydrox/Simeth 30 ML UDC 15 ML PO (09:56)
[2020-06-23] MEDS: Tuberculin,Purif.prot.deriv. 50 TU/ML Vial 5 ML ID (10:50)
[2020-06-23] MEDS: traMADol 50 MG Tablet PO (12:22)
--- NOTE | 2020-06-23 12:24 | NURSING ---
LM for daughter, Frantz, for daily update
[2020-06-23 14:27] VITALS: BP 107/73; PULSE 79; RESP 16; TEMP 36.6; O2SAT 96
--- NOTE | 2020-06-23 16:39 | CASEMGMT ---
Social Work Discussed code status. Confirmed DNR-CCA, no intubation. MOLST form completed and placed in chart. Latoya Cantu MSW REPAIR WELDER
[2020-06-24 04:00] VITALS: BP 132/76; PULSE 76; RESP 16; TEMP 36.6; O2SAT 96
[2020-06-24] MEDS: oxyCODONE 5 MG Tablet PO (05:29)
[2020-06-24] MEDS: Mag Hydrox/Al Hydrox/Simeth 30 ML UDC 15 ML PO (05:29)
--- NOTE | 2020-06-24 09:45 | PCM.PN.RX ---
<Irene Salgado - Last Filed: 06/24/20 09:45> Progress Note - Pharmacy Subjective: TCU Admission Objective: Allergies venom-honey bee [bee venom (honey bee)] Allergy (Verified 06/20/20 16:27) Anaphylaxis Current Medications Generic Name Dose Route Start Last Admin Trade Name Freq PRN Reason Stop Dose Admin Acetaminophen 1,000 mg 06/22/20 20:57 Tylenol PO Q6H PRN PRN Pain Score 1-3/10 Al Hydroxide/Mg Hydroxide 15 ml 06/23/20 08:44 06/24/20 05:29 Mylanta Ii PO 15 ml Q6H PRN PRN Administration upset stomach Bisacodyl 10 mg 06/22/20 20:57 Dulcolax RECTAL DAILY PRN Constipation Nutritional Formula (Lactose Free) 120 ml 06/23/20 06:00 06/24/20 05:30 Ensure Enlive PO 120 ml 4X/DAY SHIRA Administration Oxycodone HCl 5 mg 06/22/20 20:56 06/24/20 05:29 Oxyir PO 5 mg Q4H PRN PRN Administration Pain Score 6-10/10 Polyethylene Glycol 17 gm 06/23/20 06:00 06/24/20 05:31 Miralax PO Not Given DAILY [facility] Senna/Docusate Sodium 1 tablet 06/23/20 06:00 06/24/20 05:31 Senokot-S, Twyla-Colace PO Not Given BID SHIRA Tramadol HCl 50 mg 06/22/20 20:56 06/23/20 12:22 Ultram PO 50 mg Q6H PRN PRN Administration Pain Score 4-5/10 Tuberculin PPD 5 tu 06/30/20 10:00 Tubersol, Aplisol, Ppd ID 06/30/20 10:01 X1 ONE Problem List Debility (Acute) Fall (Acute) Weakness of both legs (Acute) Bony metastasis (Acute) Vital Signs Temp Pulse Resp BP Pulse Ox 98 F 76 16 132/76 H 96 06/24/20 04:00 06/24/20 04:00 06/24/20 04:00 06/24/20 04:00 06/24/20 04:00 Oxygen Delivery Method Room Air Weight: 63.616 kg Body Mass Index (BMI) 20.1 Sodium 138 mmol/L (136-145) 06/23/20 05:30 Potassium 4.3 mmol/L (3.5-5.1) 06/23/20 05:30 Chloride 110 mmol/L (98-107) H 06/23/20 05:30 Carbon Dioxide 26.0 mmol/L (21.0-32.0) 06/23/20 05:30 Anion Gap 2 (5-15) L 06/23/20 05:30 BUN 23 mg/dL (7-18) H 06/23/20 05:30 Creatinine 0.77 mg/dL (0.70-1.30) 06/23/20 05:30 Est GFR (MDRD) Af Amer 123 mL/min (>60) 06/23/20 05:30 Est GFR (MDRD) Non-Af 102 mL/min (>60) 06/23/20 05:30 BUN/Creatinine Ratio 29.8 RATIO (10-20) H 06/23/20 05:30 Glucose 99 mg/dL (74-106) 06/23/20 05:30 Assessment/Plan: 1. Pain: acetaminophen 1000mg PO Q6H PRN pain 1-3/10, tramadol 50mg PO Q6H PRN pain 4-5/10, and oxycodone 5mg PO Q4H PRN pain 6-10/10. Please continue to monitor for increased pain, constipation, respiratory depression and PRN usage. 2. DVT prophylaxis: enoxaparin 40mg SC once daily. Please continue to monitor for S/S of bleeding/DVT, platelets and renal function. 3. GI upset: Mylanta II 15mL PO Q6H PRN upset stomach. Please continue to monitor PRN usage. Psychotropic Medications: None Unnecessary Medications: None *Bowel Regimen: Miralax 17GM PO daily, Senna/docusate 1 tablet PO BID, bisacodyl 10MG ND daily PRN constipation. Patient has refused 2/2 doses of Miralax and 3/3 doses of senna/docusate. Please consider changing from scheduled to PRN constipation. Please monitor for S/S of constipation and use of PRN medication. Thanks. Date of Note:: 06/24/20 - Provider Comments Provider responsibility: Provider responsible to enter orders to implement recommendations <Berto Orosco Chi - Last Filed: 06/24/20 13:38> Progress Note - Pharmacy Subjective: [] Objective: Allergies venom-honey bee [bee venom (honey bee)] Allergy (Verified 06/20/20 16:27) Anaphylaxis Current Medications Generic Name Dose Route Start Last Admin Trade Name Freq PRN Reason Stop Dose Admin Acetaminophen 1,000 mg 06/22/20 20:57 Tylenol PO Q6H PRN PRN Pain Score 1-3/10 Al Hydroxide/Mg Hydroxide 15 ml 06/24/20 09:50 Mylanta Ii PO Q6H PRN PRN upset stomach Bisacodyl 10 mg 06/22/20 20:57 Dulcolax RECTAL DAILY PRN Constipation Nutritional Formula (Lactose Free) 120 ml 06/23/20 06:00 06/24/20 11:48 Ensure Enlive PO 120 ml 4X/DAY SHIRA Administration Oxycodone HCl 5 mg 06/22/20 20:56 06/24/20 05:29 Oxyir PO 5 mg Q4H PRN PRN Administration Pain Score 6-10/10 Polyethylene Glycol 17 gm 06/23/20 06:00 06/24/20 05:31 Miralax PO Not Given DAILY SHIRA Senna/Docusate Sodium 1 tablet 06/23/20 06:00 06/24/20 05:31 Senokot-S, Twyla-Colace PO Not Given BID SHIRA Tramadol HCl 50 mg 06/22/20 20:56 06/23/20 12:22 Ultram PO 50 mg Q6H PRN PRN Administration Pain Score 4-5/10 Tuberculin PPD 5 tu 06/30/20 10:00 Tubersol, Aplisol, Ppd ID 06/30/20 10:01 X1 ONE Problem List Debility (Acute) Fall (Acute) Weakness of both legs (Acute) Bony metastasis (Acute) Vital Signs Temp Pulse Resp BP Pulse Ox 98.2 F 78 16 130/64 H 90 06/24/20 13:22 06/24/20 13:22 06/24/20 13:22 06/24/20 13:22 06/24/20 13:22 Oxygen Delivery Method Room Air Weight: 63.616 kg Body Mass Index (BMI) 20.1 Sodium 138 mmol/L (136-145) 06/23/20 05:30 Potassium 4.3 mmol/L (3.5-5.1) 06/23/20 05:30 Chloride 110 mmol/L (98-107) H 06/23/20 05:30 Carbon Dioxide 26.0 mmol/L (21.0-32.0) 06/23/20 05:30 Anion Gap 2 (5-15) L 06/23/20 05:30 BUN 23 mg/dL (7-18) H 06/23/20 05:30 Creatinine 0.77 mg/dL (0.70-1.30) 06/23/20 05:30 Est GFR (MDRD) Af Amer 123 mL/min (>60) 06/23/20 05:30 Est GFR (MDRD) Non-Af 102 mL/min (>60) 06/23/20 05:30 BUN/Creatinine Ratio 29.8 RATIO (10-20) H 06/23/20 05:30 Glucose 99 mg/dL (74-106) 06/23/20 05:30 Assessment/Plan: Psychotropic Medications: Unnecessary Medications: Bowel Regimen: - Provider Comments Provider responsibility: Provider responsible to enter orders to implement recommendations Provider Comments to Recommendations by Pharmacy: Agree
[2020-06-24 13:22] VITALS: BP 130/64; PULSE 78; RESP 16; TEMP 36.8; O2SAT 90
--- NOTE | 2020-06-24 14:20 | RAD_ITS ---
STUDY: X-RAY - LUMBAR SPINE REASON FOR EXAM: Male, 84 years old. Low back pain TECHNIQUE: 5 view(s) of the lumbar spine were obtained including oblique views. COMPARISON: None FINDINGS: There is an exaggerated lumbar lordosis. There is no substantial scoliosis. There is a normal alignment of the vertebrae. There is multilevel endplate spondylosis of the lumbar vertebrae. There is multi-level degenerative disc disease with multi-level disc space narrowing. Facet joint osteoarthritis. There is atherosclerotic calcification of the abdominal aorta without a demonstrated aneurysm. RAD/L/S Spine Min 4 Views IMPRESSION: Degenerative changes of the spine, as detailed above. Electronically Signed: Sunny Hawley, at 15:04 EDT , Service support ,
[2020-06-24] MEDS: Acetaminophen 500 MG Tablet 1000 MG PO (21:07)
[2020-06-25 04:00] VITALS: BP 113/65; PULSE 80; RESP 16; TEMP 36.6; O2SAT 95
[2020-06-25 15:56] VITALS: BP 134/62; PULSE 74; RESP 18; TEMP 36.7; O2SAT 93
[2020-06-25 16:00] VITALS: PULSE 74; RESP 18; O2SAT 93
[2020-06-25] MEDS: oxyCODONE 5 MG Tablet PO (21:53)
[2020-06-26 04:00] VITALS: BP 117/73; PULSE 64; RESP 14; TEMP 36.6; O2SAT 96
--- NOTE | 2020-06-26 09:51 | PCA ---
Patient refused morning care on 06/25. Would not get up in the chair. Stayed in bed all day
--- NOTE | 2020-06-26 09:52 | PCA ---
Patient refused am care on 06/26. Dennis said he will stay in bed all day & there is no sense in getting up when he does not want to.
[2020-06-26 14:44] VITALS: BP 128/60; PULSE 76; RESP 16; TEMP 36.6; O2SAT 95
[2020-06-27] MEDS: Mag Hydrox/Al Hydrox/Simeth 30 ML UDC 15 ML PO (03:32)
[2020-06-27 03:36] VITALS: BP 120/69; PULSE 74; RESP 16; TEMP 37.2; O2SAT 96
[2020-06-27] MEDS: Acetaminophen 500 MG Tablet 1000 MG PO ×2 (03:39→20:04)
[2020-06-27 12:11] VITALS: PULSE 77; RESP 16; O2SAT 94
[2020-06-27] MEDS: traMADol 50 MG Tablet PO (13:23)
--- NOTE | 2020-06-27 14:15 | CHAPLAIN ---
Type of Pastoral Visit _x__ Initial Visit ___ Follow-up Visit ___ On-call Visit ___ General Patient Visit ___ Spiritual Assessment ___ Family Conference ___ Bereavement ___ Rapid Response ___ Code Blue ___ Other (describe below) Pastoral Care Referral From _x__ Patient ___ Family ___ Nurse ___ Physician ___ Retail Delivery Driver ___ Lead Project Engineer ___ Other (describe below) Sacrament/Intervention ___ Active listening ___ Anointing ___ Christian ___ Bereavement ___ Communion ___ Nae exploration ___ ___ Life review ___ Prayer ___ Reconciliation ___ Sacrament of Sick _x__ Supportive presence ___ Wedding ___ Other (describe below) Pastoral Comments introduced self to patient; sat at bedside; pt states that he is not doing well at all; asked pt to explain and pt states I don't need to explain anything to you, I'm in the hospital and people in the hospital are not well; pt declines support at this time; this electrical technician gave offer of future care if pt so chooses
[2020-06-27 15:09] VITALS: BP 112/62; PULSE 77; RESP 16; TEMP 36.4; O2SAT 94
[2020-06-27] MEDS: Baclofen 10 MG Tablet PO (20:05)
[2020-06-28 05:11] VITALS: BP 112/69; PULSE 68; RESP 15; TEMP 37; O2SAT 99
[2020-06-28 14:11] VITALS: BP 106/66; PULSE 72; RESP 16; TEMP 36.3; O2SAT 96
[2020-06-28] MEDS: traMADol 50 MG Tablet PO (20:10)
[2020-06-28] MEDS: Baclofen 10 MG Tablet PO (20:10)
[2020-06-29 06:09] VITALS: BP 115/62; PULSE 66; RESP 16; TEMP 36.6; O2SAT 96
--- NOTE | 2020-06-29 10:11 | PCA ---
patient refused to have any am care done this morning. Offered 2x. Would not get up to chair. will attempt this afternoon. RN aware
[2020-06-29] MEDS: traMADol 50 MG Tablet PO (10:51)
--- NOTE | 2020-06-29 11:40 | CASEMGMT ---
Social Work BIMS and PHQ9 interviews completed for MDS. PT score of 16/27 on PHQ9 indicating depression. Pt admits to feelings of depression stating who wouldn't feel this way? I am old and I hurt SW denies any plan to harm self but does think that he would be better off at times. Pt denies using anti depressant and states he say a counselor many years ago but not recently. Nursing updated on pt feelings of depression. FANY Katz
--- NOTE | 2020-06-29 12:28 | CASEMGMT ---
Social Work IDT met with patient and dtr via conference call for care plan meeting. Discussed patient's progress in therapy. Pt is SBA for bed mobility, CGA/SBA for sit to stands and transfers wit hFWW, CGA/SBA to ambulate 100 ft with FWW and has occasional unsteadiness with turning, using 3lb wts for LE exercises, lost of back pain. Pt requires cues for problem solving and sequencing ADLs. Pt is modA for toileting tasks for retrolean, Meseret for bathing with cues for completion, Mese[place] for dressing. Discussed alt. DC plan - pt and dtr still hopeful pt can return home. Inquired if pt would like to keep receiving therapy or be comfortable due to major back pain - pt expressed wanting to continue with therapy. IDT did stated back pain is limiting to progression in therapy. Explained insurance with [employer] 06/30 and continued stay is not guaranteed. Will discuss alternative options. Will continue to follow. Latoya Cantu, CARPENTER SUPERVISOR ROUSTABOUT CREW PUSHER
[2020-06-29 13:06] VITALS: PULSE 56; RESP 20; O2SAT 95
[2020-06-29 13:12] VITALS: BP 124/60; PULSE 66; RESP 20; TEMP 36.5; O2SAT 95
[2020-06-29] MEDS: oxyCODONE 5 MG Tablet PO ×2 (13:20→20:44)
[2020-06-29] MEDS: Acetaminophen 500 MG Tablet 1000 MG PO (13:21)
[2020-06-29] MEDS: Baclofen 10 MG Tablet PO (20:44)
[2020-06-29 20:58] LABS: Bacteria 0 SEEN /hpf (None Seen); Mucous, Urine 0 SEEN /hpf (<or=2+); Red Blood Cells-Urine 0 SEEN /hpf (0-5); Squamous Epithelial Cells - UA 0 SEEN /hpf (0-5); White Blood Cells 0 SEEN /hpf (0-5)
[2020-06-29 21:01] LABS: Color, Urine Yellow (Yellow); Glucose, Dipstick Normal (Normal); Ketone-Dipstick Negative (Negative); Leukocyte Esterase-Dipstick Negative /ul (Negative); Nitrite-Dipstick Negative (Negative); Occult Blood-Urine Negative /ul (Negative); Protein-Dipstick Negative (Negative); Specific Gravity, Urine 1.015 (1.002-1.030); Urine Bilirubin Dipstick Negative (Negative); Urine Clarity Clear (Clear); Urine Urobilinogen Normal (Normal); Urine pH 6.5 (5.0 - 8.0)
[2020-06-30] MEDS: Mag Hydrox/Al Hydrox/Simeth 30 ML UDC 15 ML PO (02:08)
[2020-06-30] MEDS: oxyCODONE 5 MG Tablet PO ×2 (02:12→14:35)
[2020-06-30 05:39] LABS: Absolute Lymphocyte Count 2.32 X10^3/uL (0.83-4.51); Absolute Neutrophil Count 3.9 X10^3/uL (2.0-7.7); Basophil# 0.05 X10^3/uL; Basophil% 0.7 % (0-1); Eosinophil# 0.27 X10^3/uL; Eosinophils% 3.5 % (0-5); Hematocrit 42.6 % (40-54); Hemoglobin 13.5 g/dL (13.0-16.5); Lymphocyte # 2.32 X10^3/ul (4.0); Lymphocyte % 30.2 % (19-41); Mean Corp Hgb Conc 31.7 g/dL (32-36); Mean Corpuscular Hgb 30.7 pg (27.0-32.0); Mean Corpuscular Volume 96.8 fL (80-94); Mean Platelet Vol. 9.1 fl (6.2-12.0); Monocyte% 14.3 % (0-10); NRBC Flagged by Analyzer 0 % (0-5); Neutrophil # 3.89 X10^3/uL (2.7-7.7); Neutrophil % 50.6 % (47-70); Platelet Count 245 K/mm3 (150-450); RBC Distribution Width CV 14.2 % (11.6-14.6); RBC Distribution Width SD 50.4 fl (35.1-43.9); White Blood Count 7.7 K/mm3 (4.4-11.0)
[2020-06-30 05:50] LABS: Anion Gap 2 (5-15); BUN 19 mg/dL (7-18); BUN/Creat Ratio 21.7 RATIO (10-20); Calcium,Total 8.5 mg/dL (8.5-10.1); Chloride 109 mmol/L (98-107); Creatinine, Serum 0.88 mg/dL (0.70-1.30); EST Glomerular Filtration Rate 88 mL/min (>60); Est Glom Filt Rate - Afr Amer 107 mL/min (>60); Estimated Creatinine Clearance 57.33 ml/min; Glucose 84 mg/dL (74-106); Potassium 4.5 mmol/L (3.5-5.1); Sodium Level 140 mmol/L (136-145)
[2020-06-30 06:13] VITALS: BP 125/73; PULSE 66; RESP 17; TEMP 37.1; O2SAT 98
[2020-06-30] MEDS: Citalopram 10 MG Tablet PO (08:23)
[2020-06-30] MEDS: traMADol 50 MG Tablet PO (08:25)
[2020-06-30] MEDS: Tuberculin,Purif.prot.deriv. 50 TU/ML Vial 5 ML ID (10:52)
[2020-06-30 14:14] VITALS: BP 152/65; PULSE 67; RESP 18; TEMP 36.9; O2SAT 96
[2020-06-30] MEDS: Baclofen 10 MG Tablet PO (20:39)
[2020-07-01 04:00] VITALS: BP 124/69; PULSE 73; RESP 18; TEMP 37.2; O2SAT 93
[2020-07-01] MEDS: traMADol 50 MG Tablet PO (10:17)
--- NOTE | 2020-07-01 12:36 | CASEMGMT ---
Social Work Spoke with patient's daughter about DC plans. Explained insurance approved pt with [employer] 07/04 but to have DC plans finalized, indicating issuing a NOMNC. Dtr still would like pt to continue with therapy. She cannot take him home until he can transfer and complete ADLS independently. Explained another SNF, paying privately for room and board and [facility] could possibly pay therapy under part B. Dtr stated she has funds to pay privately. Dtr provided several facilities for SW to refer to. Will continue to follow. Latoya Cantu ,PAPER MAKER SCHOOL BUS DISPATCHER
[2020-07-01 13:48] VITALS: BP 104/58; PULSE 63; RESP 20; TEMP 36.7; O2SAT 93
[2020-07-01] MEDS: Baclofen 10 MG Tablet PO (20:35)
[2020-07-01] MEDS: oxyCODONE 5 MG Tablet PO (20:35)
[2020-07-02 05:25] VITALS: BP 115/71; PULSE 70; RESP 17; TEMP 36.9; O2SAT 95
[2020-07-02 18:20] VITALS: BP 116/58; PULSE 68; RESP 16; TEMP 36.7; O2SAT 94
[2020-07-02] MEDS: oxyCODONE 5 MG Tablet PO (20:20)
[2020-07-02] MEDS: Baclofen 10 MG Tablet PO (20:21)
[2020-07-02 20:24] VITALS: O2SAT 97
[2020-07-03] MEDS: Mag Hydrox/Al Hydrox/Simeth 30 ML UDC 15 ML PO (00:08)
[2020-07-03 05:15] VITALS: BP 112/60; PULSE 71; RESP 17; TEMP 36.7; O2SAT 97
[2020-07-03 10:58] VITALS: PULSE 70; RESP 16; O2SAT 94
[2020-07-03] MEDS: Acetaminophen 500 MG Tablet 1000 MG PO (11:07)
[2020-07-03 14:19] VITALS: BP 102/62; PULSE 70; RESP 16; TEMP 36.5; O2SAT 94
[2020-07-03] MEDS: oxyCODONE 5 MG Tablet PO (19:45)
[2020-07-04 05:37] VITALS: BP 112/74; PULSE 71; RESP 17; TEMP 36.6; O2SAT 95
--- NOTE | 2020-07-04 11:33 | MDS.RN ---
Information for the mds was obtained from review of the clinical record, interview of resident, staff, and direct observation of resident's care.
[2020-07-04 15:27] VITALS: BP 120/72; PULSE 71; RESP 16; TEMP 36.9; O2SAT 96
[2020-07-04] MEDS: Mag Hydrox/Al Hydrox/Simeth 30 ML UDC 15 ML PO (20:12)
[2020-07-05] MEDS: Acetaminophen 500 MG Tablet 1000 MG PO (01:07)
[2020-07-05 05:31] VITALS: BP 119/74; PULSE 72; RESP 16; TEMP 36.3; O2SAT 96
[2020-07-05] MEDS: Mag Hydrox/Al Hydrox/Simeth 30 ML UDC 15 ML PO (05:34)
--- NOTE | 2020-07-05 13:45 | CASEMGMT ---
Social Work Followed up with dtr about DC plans as insurance may issue DC date. Dtr would like pt to transfer to [facility]. Provided private pay cost for $425/day with 30 days up front. Dtr understandable. Will notify of outcome from insurance update. Latoya Cantu, MODERN AND CONTEMPORARY ART CURATOR SCROLL MACHINE OPERATOR
[2020-07-05 14:00] VITALS: BP 109/61; PULSE 87; RESP 15; TEMP 36.6; O2SAT 95
[2020-07-05] MEDS: Ipratropium Bromide 0.06% NASAL SPRAY 2 SPRAY NASAL (18:38)
--- NOTE | 2020-07-05 18:42 | NURSING ---
pt changed his mind, assisted in calling his daughter
[2020-07-05] MEDS: oxyCODONE 5 MG Tablet PO (22:20)
[2020-07-06] MEDS: Ipratropium Bromide 0.06% NASAL SPRAY 2 SPRAY NASAL ×2 (05:20→16:24)
[2020-07-06] MEDS: oxyCODONE 5 MG Tablet PO ×2 (05:22→11:58)
[2020-07-06 05:24] VITALS: BP 135/66; PULSE 75; RESP 16; TEMP 37.1; O2SAT 96
[2020-07-06 09:16] VITALS: PULSE 58; RESP 14; O2SAT 98
[2020-07-06 14:16] VITALS: BP 127/65; PULSE 74; RESP 18; TEMP 36.3; O2SAT 92
[2020-07-07 05:29] VITALS: BP 110/70; PULSE 80; RESP 17; TEMP 36.6; O2SAT 97
[2020-07-07 05:49] LABS: Absolute Lymphocyte Count 1.99 X10^3/uL (0.83-4.51); Absolute Neutrophil Count 4.4 X10^3/uL (2.0-7.7); Basophil# 0.05 X10^3/uL; Basophil% 0.6 % (0-1); Eosinophil# 0.26 X10^3/uL; Eosinophils% 3.3 % (0-5); Hematocrit 41.6 % (40-54); Lymphocyte # 1.99 X10^3/ul (4.0); Lymphocyte % 25.4 % (19-41); Mean Corp Hgb Conc 31.3 g/dL (32-36); Mean Corpuscular Hgb 30.2 pg (27.0-32.0); Mean Corpuscular Volume 96.5 fL (80-94); Mean Platelet Vol. 9.3 fl (6.2-12.0); Monocyte# 1.11 X10^3/uL; Monocyte% 14.2 % (0-10); NRBC Flagged by Analyzer 0 % (0-5); Neutrophil # 4.39 X10^3/uL (2.7-7.7); Neutrophil % 56.1 % (47-70); Platelet Count 275 K/mm3 (150-450); RBC Distribution Width CV 14.1 % (11.6-14.6); RBC Distribution Width SD 50.7 fl (35.1-43.9); Red Blood Count 4.31 M/mm3 (4.6-6.2); White Blood Count 7.8 K/mm3 (4.4-11.0)
[2020-07-07 06:20] LABS: Anion Gap 6 (5-15); BUN 21 mg/dL (7-18); Calcium,Total 8.2 mg/dL (8.5-10.1); Chloride 109 mmol/L (98-107); Creatinine, Serum 0.92 mg/dL (0.70-1.30); EST Glomerular Filtration Rate 84 mL/min (>60); Est Glom Filt Rate - Afr Amer 101 mL/min (>60); Estimated Creatinine Clearance 53.86 ml/min; Glucose 160 mg/dL (74-106); Potassium 3.8 mmol/L (3.5-5.1); Sodium Level 140 mmol/L (136-145)
[2020-07-07] MEDS: Ipratropium Bromide 0.06% NASAL SPRAY 2 SPRAY NASAL ×2 (06:31→16:49)
[2020-07-07] MEDS: oxyCODONE 5 MG Tablet PO ×2 (06:33→19:52)
[2020-07-07 16:00] VITALS: BP 112/68; PULSE 68; RESP 18; TEMP 36.8; O2SAT 97
[2020-07-08 06:17] VITALS: BP 120/68; PULSE 73; RESP 17; TEMP 37.2; O2SAT 98
[2020-07-08] MEDS: oxyCODONE 5 MG Tablet PO ×2 (12:43→21:19)
[2020-07-08 13:26] VITALS: BP 128/66; PULSE 65; RESP 18; TEMP 36.4; O2SAT 97
--- NOTE | 2020-07-08 17:51 | NURSING ---
Resident refusing nose spray. This nurse offers to call family to touch base with them today and resident refuses. He states he has not talked with family today.
[2020-07-09 04:00] VITALS: BP 114/64; PULSE 69; RESP 16; TEMP 36.8; O2SAT 98
[2020-07-09] MEDS: oxyCODONE 5 MG Tablet PO (09:56)
[2020-07-09 13:50] VITALS: BP 108/61; PULSE 76; RESP 16; TEMP 36.4; O2SAT 98
[2020-07-10] MEDS: Mag Hydrox/Al Hydrox/Simeth 30 ML UDC 15 ML PO (02:53)
[2020-07-10 02:56] VITALS: BP 153/80; PULSE 72; RESP 16; TEMP 37.2; O2SAT 98
[2020-07-10 13:27] VITALS: BP 103/50; PULSE 81; RESP 16; TEMP 36.3; O2SAT 95
[2020-07-10] MEDS: oxyCODONE 5 MG Tablet PO ×2 (13:47→21:04)
[2020-07-11 04:33] VITALS: BP 136/66; PULSE 75; RESP 16; TEMP 37.1; O2SAT 96
[2020-07-11 14:01] VITALS: BP 80/44; PULSE 89; RESP 20; TEMP 36.2; O2SAT 98
[2020-07-12 06:30] VITALS: BP 113/62; PULSE 72; RESP 18; TEMP 36.7; O2SAT 96
[2020-07-12] MEDS: oxyCODONE 5 MG Tablet PO ×2 (06:31→19:31)
[2020-07-12 10:00] VITALS: PULSE 70; RESP 14; O2SAT 96
[2020-07-12 13:33] VITALS: BP 99/66; PULSE 72; RESP 14; TEMP 36.8; O2SAT 96
--- NOTE | 2020-07-12 13:59 | CASEMGMT ---
Social Work Insurance issued LCD 07/14, DC 07/15. the plan is to DC to [facility]. Left message with dtr - inquired about transportation. Notified [place] - faxed updated clinicals. DICK RuizW
[2020-07-12] MEDS: Mag Hydrox/Al Hydrox/Simeth 30 ML UDC 15 ML PO (17:24)
--- NOTE | 2020-07-12 19:27 | NURSING ---
Addendum entered by Alejandra Maravilla 07/12/20 19:34: Updated Yessi, street vendor, and she states Dr Orosco is aware. Resident agreeable to Anusol Suppository. Original Note: Up to bathroom. Has soft BM with blood in it. Resident reports blood while wiping as well. Does not have a history of hemrrhoids per resident. Will let Dr Orosco know.
[2020-07-12] MEDS: Hydrocortisone 25 MG Suppository RECTAL (19:32)
--- NOTE | 2020-07-12 20:38 | PCM.DC ---
- Discharge Diagnoses Current Active Problems: Current Active and Chronic Problems Debility (Acute) Fall (Acute) Weakness of both legs (Acute) Bony metastasis (Acute) You will use the following diet at home:: No restrictions, Regular Your food should be the consistency of: Regular Your liquids should be the consistency of: Regular/Thin Discharge Activity: Return to Normal Activity, May Shower, Use Walker Call your doctor if you observe: Fever of 101 or Higher, Inability to urinate, Inability to have a bowel movement, Shortness of breath, Chest pain, Uncontrolled pain Allergies/Adverse Reactions: Allergies venom-honey bee [bee venom (honey bee)] Allergy (Verified 06/20/20 16:27) Anaphylaxis Medications to take at Discharge Acetaminophen [Tylenol] 1,000 mg PO Q6H PRN PRN tablet 07/12/20 Bisacodyl [Dulcolax] 10 mg RECTAL DAILY PRN suppos. 07/12/20 Ensure Enlive 120 ml PO 4X/DAY liquid 07/12/20 Hydrocortisone 2.5% Crm [Hytone] 1 applic TOPICAL BID PRN PRN tube 07/12/20 Hydrocortisone [Anusol Hc] 25 mg RECTAL BID PRN PRN suppos. 07/12/20 Mag Hydrox/Al Hydrox/Simeth [Mylanta II] 15 ml PO Q6H PRN PRN udc 07/12/20 Menthol [Bengay Vanishing Scent] 1 applic TOPICAL 4X/DAY PRN PRN tube 07/12/20 Oxycodone [Oxyir] 5 mg PO Q4H PRN PRN 7 Days #28 tab 07/12/20 The following prescriptions were given: Oxycodone [Oxyir] 5 mg PO Q4H PRN PRN 7 Days #28 tab PRN Reason: Pain Score 6-10/10 Prescription Printed Primary Care Physician: Denis Tanner III, MD [Primary Care Provider] - Please follow up with your Primary Care Physician in: 1 week. Test Results: Test results from this visit will be discussed in further detail at your follow-up appointment, if applicable. Proposed Discharge Date: 07/15/20
--- NOTE | 2020-07-12 20:40 | DS.PCM_ITS ---
Discharge Date and Diagnosis - Problem List Patient Problems: Active and Suspected Problems Debility (Acute) Fall (Acute) Weakness of both legs (Acute) Bony metastasis (Acute) Date of Admission: 06/20/20 Date of Discharge: 07/15/20 - Primary Discharge Diagnosis Acute Problems: Active Problems Debility (Acute) Fall (Acute) Weakness of both legs (Acute) Bony metastasis (Acute) Hospital Course and Treatment Imaging Results: 06/22/20 19:44 Diet: Regular - General Food consistency:: Mechanical (Minced/Moist) Liquid Consistency:: Regular/Thin Type of Dietary Supplement:: Ensure Complete Is pt able to select menu?: No Diet Comments: very soft foods/ground meat/edentulous Clinical Impression(s) from Imaging Studies Lumbar Spine X-Ray 06/24/20 14:20 IMPRESSION: Degenerative changes of the spine, as detailed above. Electronically Signed: Sunny Hawley, at 15:04 EDT , Service support , Operations: None, - - 09/05/15 Operative intervention w/ right hip open reduction and internal fixation with short intramedullary nailing performed. Procedures: None Summary of Care Provided: The patient is a 84 year old Male with below past medical history hospitalized for fall, weakness, complicated by metastatic disease of neck, patient declining workup, admitted to TCU with debility, here for rehabilitation, strengthening, prior to discharge home with family. Discharge to [facility]. Patient Problems: Active and Suspected Problems Debility (Acute) Fall (Acute) Weakness of both legs (Acute) Bony metastasis (Acute) - Physical Exam Vitals/I&O's: Vital Signs Temp Pulse Resp BP Pulse Ox 98.2 F 72 14 99/66 96 07/12/20 13:33 07/12/20 13:33 07/12/20 13:33 07/12/20 13:33 07/12/20 13:33 Oxygen Delivery Method Room Air Weight: 63.588 kg Body Mass Index (BMI) 20.1 Intake and Output for Last 24 Hours 07/10/20 07/11/20 07/12/20 23:59 23:59 23:59 Intake Total 720 / 720 360 / 360 360 / 360 Output Total 600 / 600 Balance 120 / 120 360 / 360 360 / 360 Current Medications Acetaminophen (Tylenol) 1,000 mg PO Q6H PRN PRN PRN Reason: Pain Score 1-3/10 Last Admin: 07/05/20 01:07 Dose: 1,000 mg Documented by: Al Hydroxide/Mg Hydroxide (Mylanta Ii) 15 ml PO Q6H PRN PRN PRN Reason: upset stomach Last Admin: 07/12/20 17:24 Dose: 15 ml Documented by: Bisacodyl (Dulcolax) 10 mg RECTAL DAILY PRN PRN Reason: Constipation Hydrocortisone (Hytone) 1 applic TOPICAL BID PRN PRN; Protocol PRN Reason: ITCHING Hydrocortisone Acetate (Anusol Hc) 25 mg RECTAL BID PRN PRN PRN Reason: Hemorrhoids Stop: 07/13/20 08:09 Last Admin: 07/12/20 19:32 Dose: 25 mg Documented by: Menthol (Bengay Vanishing Scent) 1 applic TOPICAL 4X/DAY PRN PRN PRN Reason: Pain Score 1-1010 Last Admin: 07/12/20 08:51 Dose: 1 applic Documented by: Nutritional Formula (Lactose Free) (Ensure Enlive) 120 ml PO 4X/DAY SHIRA Last Admin: 07/12/20 17:22 Dose: 120 ml Documented by: Oxycodone HCl (Oxyir) 5 mg PO Q4H PRN PRN PRN Reason: Pain Score 6-10/10 Last Admin: 07/12/20 19:31 Dose: 5 mg Documented by: Tramadol HCl (Ultram) 50 mg PO Q6H PRN PRN PRN Reason: Pain Score 4-5/10 Last Admin: 07/01/20 10:17 Dose: 50 mg Documented by: Discharge Diet: - - Very soft foods, ground, edentulous, Discharge Activity: Return to Normal Activity, May Shower, Use Walker Weight Bearing Status: Weight bearing as tolerated Call your doctor if you observe: Fever of 101 or Higher, Inability to urinate, Inability to have a bowel movement, Shortness of breath, Chest pain, Uncontrolled pain Home Medications: Medications to take at Discharge Acetaminophen [Tylenol] 1,000 mg PO Q6H PRN PRN tablet 07/12/20 Bisacodyl [Dulcolax] 10 mg RECTAL DAILY PRN suppos. 07/12/20 Ensure Enlive 120 ml PO 4X/DAY liquid 07/12/20 Hydrocortisone 2.5% Crm [Hytone] 1 applic TOPICAL BID PRN PRN tube 07/12/20 Hydrocortisone [Anusol Hc] 25 mg RECTAL BID PRN PRN suppos. 07/12/20 Mag Hydrox/Al Hydrox/Simeth [Mylanta II] 15 ml PO Q6H PRN PRN udc 07/12/20 Menthol [Bengay Vanishing Scent] 1 applic TOPICAL 4X/DAY PRN PRN tube 07/12/20 Oxycodone [Oxyir] 5 mg PO Q4H PRN PRN 7 Days #28 tab 07/12/20 Following Prescriptions Were Given to Patient: Oxycodone [Oxyir] 5 mg PO Q4H PRN PRN 7 Days #28 tab PRN Reason: Pain Score 6-10/10 Prescription Printed Primary Care Physician: Denis Tanner III, MD [Primary Care Provider] - Please follow up with your Primary Care Physician in: 1 week. Disposition: Asstd Living/Non-Skill SC Minutes spent on discharge:: 35 Patient Condition:: Stable Medical Necessity - Tobacco Use Smoking Status: Former smoker Tobacco Use: Cigarettes Meaningful Use Info Meaningful Use Diagnoses (Choose all that apply): None applicable
--- NOTE | 2020-07-12 20:44 | PCM.TXEXTCAR ---
- Diet 06/22/20 19:44 Diet: Regular - General Food consistency:: Mechanical (Minced/Moist) Liquid Consistency:: Regular/Thin Type of Dietary Supplement:: Ensure Complete Is pt able to select menu?: No Diet Comments: very soft foods/ground meat/edentulous - Routine Orders/Code Status Suppository Type: Dulcolax 10mg Suppository Frequency: Daily PRN Code Status: DNC-A - No intubation. - Wound(s) Right Elbow Wound Type: Abrasion Right Wrist Wound Type: Abrasion left leg below knee Wound Type: Abrasion - Therapies Weight Bearing: Weight bearing as tolerated Extremity Affected:: Bilateral Lower - Problem/Diagnosis (1) Debility Status: Acute Current Visit: Yes (2) Fall Status: Acute Current Visit: Yes (3) Weakness of both legs Status: Acute Current Visit: Yes (4) Bony metastasis Status: Acute Current Visit: Yes - Allergies/Procedures Done in Hospital Allergies/Adverse Reactions: Allergies venom-honey bee [bee venom (honey bee)] Allergy (Verified 06/20/20 16:27) Anaphylaxis - Type of Care/Length of Stay Estimated LOS: More Than 30 Days Type of Care Needed: Intermediate Rehab Potential: Fair Prognosis: Poor - Additional Orders/Day of Discharge Day of Discharge: 07/15/20 - Dietary and Speech Recommendations Dietitian Recommendations/Changes: Rec CAP AND STUD MACHINE OPERATOR consult as indicated. Continue Regular diet w/ texture modifications per CAP AND STUD MACHINE OPERATOR. Will continue Ensure Enlive at [facility]. Will continue to provide regular pudding/ice cream instead. - Follow Up Care Primary Care Physician: Denis Tanner III, MD [Primary Care Provider] - Please follow up with your Primary Care Physician in: 1 week.
[2020-07-13] MEDS: oxyCODONE 5 MG Tablet PO (02:12)
[2020-07-13 06:29] VITALS: BP 135/72; PULSE 70; RESP 16; TEMP 36.6; O2SAT 96
--- NOTE | 2020-07-13 13:43 | CASEMGMT ---
Addendum entered by Latoya Cantu 07/13/20 15:47: Dtr returned phone call and would like w/c transport scheduled and understands private pay. Scheduled w/c transport with [facility] at 12 pm. Original Note: Social Work Followed up with [place]. Reexplained pt is coming nonskilled, private pay and BOM to contact dtr to receive payment. They are able to accept. Latoya Cantu, SYSTEM VALIDATION ENGINEER HEALTH AND PHYSICAL EDUCATION PROFESSOR
[2020-07-13 14:56] VITALS: BP 110/64; PULSE 66; RESP 16; TEMP 36.6; O2SAT 97
[2020-07-14 05:40] VITALS: BP 133/70; PULSE 79; RESP 17; TEMP 36.6; O2SAT 97
[2020-07-14 06:01] LABS: Absolute Lymphocyte Count 2.06 X10^3/uL (0.83-4.51); Absolute Neutrophil Count 4.1 X10^3/uL (2.0-7.7); Basophil# 0.05 X10^3/uL; Basophil% 0.6 % (0-1); Eosinophil# 0.33 X10^3/uL; Eosinophils% 4.2 % (0-5); Hematocrit 42.1 % (40-54); Hemoglobin 13.5 g/dL (13.0-16.5); Lymphocyte # 2.06 X10^3/ul (4.0); Lymphocyte % 26.4 % (19-41); Mean Corp Hgb Conc 32.1 g/dL (32-36); Mean Corpuscular Hgb 30.8 pg (27.0-32.0); Mean Corpuscular Volume 95.9 fL (80-94); Mean Platelet Vol. 9.7 fl (6.2-12.0); Monocyte# 1.23 X10^3/uL; Monocyte% 15.8 % (0-10); NRBC Flagged by Analyzer 0 % (0-5); Neutrophil # 4.11 X10^3/uL (2.7-7.7); Neutrophil % 52.7 % (47-70); Platelet Count 219 K/mm3 (150-450); RBC Distribution Width CV 13.7 % (11.6-14.6); RBC Distribution Width SD 48.6 fl (35.1-43.9); Red Blood Count 4.39 M/mm3 (4.6-6.2); White Blood Count 7.8 K/mm3 (4.4-11.0)
[2020-07-14 06:27] LABS: Anion Gap 1 (5-15); BUN 18 mg/dL (7-18); BUN/Creat Ratio 21.3 RATIO (10-20); Calcium,Total 8.5 mg/dL (8.5-10.1); Chloride 113 mmol/L (98-107); Creatinine, Serum 0.84 mg/dL (0.70-1.30); EST Glomerular Filtration Rate 92 mL/min (>60); Est Glom Filt Rate - Afr Amer 111 mL/min (>60); Estimated Creatinine Clearance 59.93 ml/min; Glucose 92 mg/dL (74-106); Potassium 4.1 mmol/L (3.5-5.1); Sodium Level 141 mmol/L (136-145)
[2020-07-14] MEDS: Hydrocortisone 2.5% Crm 1 APPLIC TOPICAL (10:33)
[2020-07-14] MEDS: Acetaminophen 500 MG Tablet 1000 MG PO (10:37)
--- NOTE | 2020-07-14 11:18 | MDS.RN ---
Pain interview for BESS 07/15/20 completed.
[2020-07-14 13:37] VITALS: BP 117/64; PULSE 71; RESP 16; TEMP 36.4; O2SAT 94
--- NOTE | 2020-07-14 17:20 | NURSING ---
NOTIFIED DR. PHILLIPS OF BLOOD IN STOOL AGAIN. N.O. ANUSOL R/S X1.
[2020-07-14] MEDS: Hydrocortisone 25 MG Suppository RECTAL (17:49)
[2020-07-14] MEDS: oxyCODONE 5 MG Tablet PO (17:53)
--- NOTE | 2020-07-14 22:43 | PCA ---
pt refused to do any pm care reported to my nurse.
[2020-07-15 05:57] VITALS: BP 120/61; PULSE 65; RESP 17; TEMP 37.2; O2SAT 97
[2020-07-15] MEDS: oxyCODONE 5 MG Tablet PO (09:38)
[2020-07-15] MEDS: Hydrocortisone 2.5% Crm 1 APPLIC TOPICAL (09:43)
[2020-07-15 10:25] VITALS: PULSE 66; RESP 16; O2SAT 96
--- NOTE | 2020-07-15 11:44 | NURSING ---
This nurse called report in to Kelsie Enriquez LPN at [facility]. Made aware of current resident status and all questions and concerns addressed.
--- NOTE | 2020-07-15 12:04 | NURSING ---
Physician's transport here to take resident to new facility via wheel chair.
== END 2020-07-15 12:00 | disposition intermediate care facility (04) | DRG 845 ==
PROVIDERS: Admitting Provider Family Medicine Geriatric Medicine; PCP Family Medicine; Visit Provider Family Medicine Geriatric Medicine
DX: C79.89 Secondary malignant neoplasm of other specified sites (principal); M19.90 Unspecified osteoarthritis, unspecified site; Z91.81 History of falling; Z87.891 Personal history of nicotine dependence; F32.9 Major depressive disorder, single episode, unspecified
CPT/HCPCS: 36415; 72110; 80048; 81001; 85025; 87086; 87635; 94799; 97110; 97116; 97162; 97166; 97530; 97535; 97802; U0003

== ENCOUNTER 2022-05-29 22:11 | Emergency (ER) | payer MEDICARE, SELFPAY ==
[2022-05-29 22:12] VITALS: BP 126/78; BP 157/103; PULSE 83; RESP 19; TEMP 36.4; O2SAT 96; BMI 18.6
--- NOTE | 2022-05-29 22:52 | EKG12_ITS ---
Test Reason : DYSRHYTHMIA Blood Pressure : / mmHG Vent. Rate : 067 BPM Atrial Rate : 300 BPM P-R Int : 164 ms QRS Dur : 086 ms QT Int : 400 ms P-R-T Axes : 042 -42 047 degrees QTc Int : 422 ms Undetermined rhythm : Consider ectopic atrial rhythm Left axis deviation Low voltage QRS (Limb Leads) Abnormal ECG Confirmed by VALENTINA MATTEHWS, YANN ([id number]), web content editor EARL RAMIREZ ([id number]) on 05/31/2022 9:08:36 AM Referred By: LEYDA Confirmed By:YANN MONTGOMERY MD
--- NOTE | 2022-05-29 22:55 | EX.ED.DYSGE1 ---
HPI History of Present Illness Chief Complaint: Weakness Informant: patient and family Narrative Narrative: Patient had pain to his lower neck that worsened this evening when he was about to get in the shower. No fall or trauma. The pain is better now but still present. 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 This was found approximately 2 or so years ago. It was suspected to be prostate cancer but patient and family elected not to look into this and keep him comfortable. He has been staying at home. He takes [id number] meds for pains. He also has pain in the right upper quadrant area. This has been going on a long time and is not new today. This is the area that the triage note mentions is abdominal and chest. Patient states he thinks it is in his liver. Patient also has had generalized progressive weakness. He has had decreased in appetite. He has an appointment with his primary physician tomorrow. What got him in here tonight was the neck pain that is now better. He did not have diaphoresis nausea vomiting or trouble breathing with this. No neurologic symptoms. [facility] Medical History (Updated 05/30/22 @ 01:[address] Azael Meng MD) Bony metastasis Depression ETOH abuse Generalized weakness Osteoarthritis Suicidal ideation Home Medications acetaminophen 500 mg tablet 1,000 mg PO Q6H PRN PRN Pain Score 1-02/0107/12/20 [Rx Last Taken Unknown] aluminum-mag hydroxide-simethicone 400 mg-400 mg-40 mg/5 mL oral susp 15 ml PO Q6H PRN PRN upset stomach 07/12/20 [Rx Last Taken Unknown] bisacodyl 10 mg rectal suppository 10 mg RECTAL DAILY PRN Constipation 07/12/20 [Rx Last Taken Unknown] food supplemt, lactose-reduced 0.08 gram-1.5 kcal/mL oral liquid 120 ml PO 4X/DAY 07/12/20 [Rx Last Taken Unknown] hydrocortisone 2.5 % topical cream 1 applic topical BID PRN PRN Itching 07/12/20 [Rx Last Taken Unknown] hydrocortisone acetate 25 mg rectal suppository 25 mg RECTAL BID PRN PRN Hemorrhoids 07/12/20 [Rx Last Taken Unknown] menthol 2.5 % topical gel 1 applic topical 4X/DAY PRN PRN Pain Score 1-09/0307/12/20 [Rx Last Taken Unknown] ondansetron 4 mg disintegrating tablet 4 mg PO Q8H PRN nausea and vomiting #10 tabs 05/30/22 [Rx Last Taken Unknown] oxycodone-acetaminophen 5 mg-325 mg tablet (Percocet) 1 tab PO Q6H PRN pain 3 days #12 tabs 05/30/22 [Rx Last Taken Unknown] tamsulosin 0.4 mg capsule (Flomax) 0.4 mg PO DAILY #10 caps 05/30/22 [Rx Last Taken Unknown] Allergy/AdvReac Type Severity Reaction Status Date / Time venom-honey bee Allergy Anaphylaxis Verified 05/29/22 22:16 [bee venom (honey bee)] Social History Smoking Status: Former smoker ROS ROS ED Constitutional Constitutional ED: Reports weight loss; Denies fever(s) Eyes Eyes: Denies change in vision ENT ENT ED: Denies rhinorrhea or sore throat Cardiovascular Cardiovascular: Denies chest pain or palpitations Respiratory/Chest Respiratory/Chest: Denies cough or dyspnea Gastrointestinal Gastrointestinal: Reports abdominal pain; Denies constipation, diarrhea, nausea or vomiting Genitourinary Genitourinary ED: Denies dysuria or hematuria Musculoskeletal Musculoskeletal: Reports arthralgias, back pain and neck pain Integumentary Denies rash Neurologic Neurologic: Denies headache(s) or paresthesias Psychiatric Psychiatric: Denies anxiety or depression Endocrine Endocrinology: Denies polydipsia or polyuria Hematologic/Lymphatic Hematologic/Lymphatic: Denies easy bleeding or easy bruising Allergic/Immunologic Allergic/Immunologic ED: Denies urticaria EXAM Physical Exam Const Vital Signs: 05/29/22 22:12 05/29/22 22:15 05/29/22 22:12 Temperature 97.6 F L Temperature Source Oral Pulse Rate 83 Respiratory Rate 19 H Respiratory Effort Normal Non-Labored Respiratory Pattern Normal Blood Pressure 157/103 H 126/78 H Blood Pressure Mean 121 94 Pulse Ox 96 Oxygen Delivery Method Room Air 05/30/22 00:41 Temperature Temperature Source Pulse Rate 76 Respiratory Rate 20 H Respiratory Effort Respiratory Pattern Blood Pressure 157/75 H Blood Pressure Mean 102 Pulse Ox 98 Oxygen Delivery Method Room Air Constitutional Narrative: Patient was look within. He looks somewhat frail. He has not quite cachectic though. He is in no acute distress General Appearance ED: NAD WILMERENT Reports moist mucous membranes Eyes EOMs intact bilaterally Neck no JVD Chest Wall inspection of chest normal and palpation of chest normal Chest Narrative: No chest wall tenderness at all. I feel no obvious rib abnormality. Resp normal respiratory effort and clear to auscultation bilaterally Cardio regular rate and regular rhythm GI normal to inspection, nondistended, normoactive bowel sounds and no masses GI Narrative: Abdomen is not really tender. When I press over the liver he states that is where his pain is. But he states pressing on it does not really alter it. Back/Spine no CVA tenderness Extremity normal to inspection General Extremety ED: Negative for edema or tenderness General Extremity: Negative for edema Neuro oriented x3 Neuro Narrative: Hard of hearing but A&O x3. Psych mental status grossly normal Skin no rashes or lesions noted and no wounds MDM MDM MDM Narrative Medical decision making narrative: Patient's labs show a minimal nonspecific white count. Coags are negative. Electrolytes are overall normal. Liver function test are unremarkable. Lipase is normal. Troponin is normal. Glucose is minimally elevated at 133. Urine shows just 5-10 white cells but is clear and no nitrites. He has no symptoms of a UTI. This will be sent for culture. X-rays and CT shows significant arthritis and chronic changes. CT of his abdomen does show a 9 mm stone with some hydro on the left. I went back to talk to the patient again. He states he is not having any pain at all on the left flank or left side of his abdomen. He has chronic right upper quadrant type pain and that has been going on for a while. His neck is not bothering him. Neck CT does show significant arthritic changes. Patient has an appointment with his primary physician tomorrow. I will give him urology number for follow-up. I explained that this stone could suddenly cause pain on him. The stone will not likely pass on its own and will likely need a procedure so he does need to follow-up even if he is not hurting. If not treated, this could lead to kidney failure. If he has too much pain, vomiting, fevers he may need to return. Lab Data Attestation: I reviewed the patient's lab results. Labs: Laboratory Results - last 24 hr 05/29/22 05/29/22 05/29/22 23:17 23:17 23:17 WBC 12.2 H RBC 5.20 Hgb 16.2 Hct 49.3 MCV 94.8 H MCH 31.2 MCHC 32.9 RDW Std Deviation 47.7 H RDW Coeff of Susan 13.5 Plt Count 236 MPV 9.7 Immature Gran % (Auto) 0.500 Neut % (Auto) 77.8 H Lymph % (Auto) 10.6 L [place] % (Auto) 9.2 Eos % (Auto) 1.6 Baso % (Auto) 0.3 Absolute Neuts (auto) 9.5 H Absolute Lymphs (auto) 1.29 Nucleated RBC % 0 PT 13.4 INR 1.1 Sodium 140 Potassium 4.3 Chloride 108 H Carbon Dioxide 26.0 Anion Gap 6 BUN 21 H Creatinine 1.07 Estim Creat Clear Calc 44.62 Est GFR (MDRD) Af Amer 84 Est GFR (MDRD) Non-Af 70 BUN/Creatinine Ratio 19.6 Glucose 133 H Calcium 9.3 Total Bilirubin 1.00 AST 17 ALT 21 Alkaline Phosphatase 82 Troponin I High Sens 5 Total Protein 6.6 Albumin 3.0 L Globulin 3.6 Albumin/Globulin Ratio 0.8 L Lipase 116 Urine Color Urine Clarity Urine pH Ur Specific [place] Urine Protein Urine Glucose (UA) Urine Ketones Urine Occult Blood Urine Nitrite Urine Bilirubin Urine Urobilinogen Ur Leukocyte Esterase Urine RBC Urine WBC Ur Squamous Epith Cells Urine Bacteria Hyaline Casts Urine Mucus 05/30/22 00:40 WBC RBC Hgb Hct MCV MCH MCHC RDW Std Deviation RDW Coeff of Susan Plt Count MPV Immature Gran % (Auto) Neut % (Auto) Lymph % (Auto) Mills % (Auto) Eos % (Auto) Baso % (Auto) Absolute Neuts (auto) Absolute Lymphs (auto) Nucleated RBC % PT INR Sodium Potassium Chloride Carbon Dioxide Anion Gap BUN Creatinine Estim Creat Clear Calc Est GFR (MDRD) Af Amer Est GFR (MDRD) Non-Af BUN/Creatinine Ratio Glucose Calcium Total Bilirubin AST ALT Alkaline Phosphatase Troponin I High Sens Total Protein Albumin Globulin Albumin/Globulin Ratio Lipase Urine Color Yellow Urine Clarity Clear Urine pH 6.0 Ur Specific [place] 1.020 Urine Protein 15 H Urine Glucose (UA) Normal Urine Ketones 15 H Urine Occult Blood 25 H Urine Nitrite Negative Urine Bilirubin Negative Urine Urobilinogen Normal Ur Leukocyte Esterase 100 H Urine RBC 0-5 SEEN Urine WBC 5-10 SEEN Ur Squamous Epith Cells 0 SEEN Urine Bacteria 1+ Hyaline Casts 0-5 SEEN Urine Mucus 2+ Radiography Diagnostic Testing: Clinical Impression(s) from Imaging Studies Chest X-Ray 05/29/22 23:15 IMPRESSION: No significant interval change. Pulmonary emphysema. No acute abnormality. Electronically Signed: Vishal Godoy MD at 0:21 EDT , Brain CT 05/30/22 22:51 IMPRESSION: 1. Mild generalized atrophy. Mild low density bilaterally in the deep white matter. This likely represents small vessel ischemic changes in the deep white matter. 2. No acute intracranial abnormality. 3. Partial opacification left ethmoid air cells. Electronically Signed: Casey Dejesus MD at 1:17 EDT , Cervical Spine CT 05/30/22 22:51 IMPRESSION: No significant interval change. Previous fusion of the C4/5 disc space. Multilevel degenerative disc disease. No acute fracture or subluxation. Electronically Signed: Vishal Godoy MD at 0:59 EDT , Abdomen/Pelvis CT 05/30/22 22:52 IMPRESSION: 1. Moderate left hydronephrosis with peripelvic stranding due to a 9 mm stone in the proximal left ureter. 2. Coronary artery disease. Electronically Signed: Casey Dejesus MD at 1:19 EDT , EKG Initial EKG: Comments: EKG done for generalized weakness read by me does appear to show sinus rhythm. Overall rate is 67. No ventricular ectopy. No acute ST elevation depression. IA interval, QRS duration and QTC are normal. Discharge Plan Triage Chief Complaint: Weakness ED Provider: Azael Meng Dx/Rx/DC Orders Clinical Impression: Kidney stone on left side, Cervical arthritis Instructions: ED Kidney Stone w/ Colic Prescriptions: New oxycodone-acetaminophen [Percocet] 5-325 mg tablet 1 tab PO Q6H PRN (Reason: pain) 3 Days Qty: 12 0RF ondansetron 4 mg tablet,disintegrating 4 mg PO Q8H PRN (Reason: nausea and vomiting) Qty: 10 0RF tamsulosin [Flomax] 0.4 mg capsule 0.4 mg PO DAILY Qty: 10 0RF No Action acetaminophen 500 MG tablet 1,000 mg PO Q6H PRN PRN (Reason: Pain Score 1-3/10) 0RF hydrocortisone acetate 25 MG suppository 25 mg RECTAL BID PRN PRN (Reason: Hemorrhoids) 0RF bisacodyl 10 MG suppository 10 mg RECTAL DAILY PRN (Reason: Constipation) 0RF hydrocortisone 1 APPLIC cream 1 applic topical BID PRN PRN (Reason: Itching) 0RF Protocol: *Topical Application Instructions APPLICATION INSTRUCTIONS: Bilateral ears, inner. alum-mag hydroxide-simeth 30 ML suspension 15 ml PO Q6H PRN PRN (Reason: upset stomach) 0RF menthol 1 APPLIC gel 1 applic topical 4X/DAY PRN PRN (Reason: Pain Score 1-10/10) 0RF food supplemt, lactose-reduced 120 ML liquid 120 ml PO 4X/DAY 0RF Primary Care Provider: Care Physician,No Primary Referrals: Jerrod Oneil MD [STAFF PHYSICIAN] - As soon as possible NOT,DEFINED [NON-STAFF] - Activity Restrictions/Additional Instructions: Follow-up with your primary care physician as scheduled tomorrow Disposition Disposition: Home, Self Care
--- NOTE | 2022-05-29 23:15 | RAD_ITS ---
STUDY: X-RAY CHEST REASON FOR EXAM: Male, 86 years old. pain TECHNIQUE: Single AP portable view upright of the chest. 11:13 PM. COMPARISON: Previous chest radiographs of 06/20/2020 and . FINDINGS: Findings of pulmonary emphysema are again noted with hyperlucency of the upper lungs and pruning of peripheral pulmonary vascular markings. No acute pulmonary infiltrates. No pneumothorax or pleural effusion. Normal size heart. Normal mediastinum and faviola. Stable moderate elongation of the thoracic aorta. No acute osseous abnormality. There is no demonstrated abnormality of the visualized soft tissue structures of the upper abdomen. RAD/Chest 1 View (Portable) IMPRESSION: No significant interval change. Pulmonary emphysema. No acute abnormality. Electronically Signed: Vishal Godoy MD at 0:21 EDT ,
[2022-05-29] MEDS: Morphine 4 MG/ML Syringe IV (23:34)
[2022-05-29 23:44] LABS: Absolute Lymphocyte Count 1.29 X10^3/uL (0.83-4.51); Absolute Neutrophil Count 9.5 X10^3/uL (2.0-7.7); Basophil# 0.04 X10^3/uL; Basophil% 0.3 % (0-1); Eosinophil# 0.19 X10^3/uL; Eosinophils% 1.6 % (0-5); Hematocrit 49.3 % (40-54); Hemoglobin 16.2 g/dL (13.0-16.5); Lymphocyte # 1.29 X10^3/ul (0.83-4.51); Lymphocyte % 10.6 % (19-41); Mean Corp Hgb Conc 32.9 g/dL (32-36); Mean Corpuscular Hgb 31.2 pg (27.0-32.0); Mean Corpuscular Volume 94.8 fL (80-94); Mean Platelet Vol. 9.7 fl (6.2-12.0); Monocyte# 1.12 X10^3/uL; Monocyte% 9.2 % (0-10); NRBC Flagged by Analyzer 0 % (0-5); Neutrophil # 9.48 X10^3/uL (2.7-7.7); Neutrophil % 77.8 % (47-70); Platelet Count 236 K/mm3 (150-450); RBC Distribution Width CV 13.5 % (11.6-14.6); RBC Distribution Width SD 47.7 fl (35.1-43.9); White Blood Count 12.2 K/mm3 (4.4-11.0)
[2022-05-30 00:13] LABS: ALB/GLOB Ratio 0.8 RATIO (0.9-2.4); AST(SGOT) 17 U/L (15-37); Alanine Aminotransfer ALT/SGPT 21 U/L (16-61); Alkaline Phosphatase 82 U/L (45-117); Anion Gap 6 (5-15); BUN 21 mg/dL (7-18); BUN/Creat Ratio 19.6 RATIO (10-20); Calcium,Total 9.3 mg/dL (8.5-10.1); Chloride 108 mmol/L (98-107); Creatinine, Serum 1.07 mg/dL (0.70-1.30); EST Glomerular Filtration Rate 70 mL/min (>60); Est Glom Filt Rate - Afr Amer 84 mL/min (>60); Estimated Creatinine Clearance 44.62 ml/min; Globulin 3.6 g/dL (2.2-4.2); Glucose 133 mg/dL (74-106); Lipase 116 U/L (73-393); Potassium 4.3 mmol/L (3.5-5.1); Protein, Total 6.6 g/dL (6.4-8.2); Sodium Level 140 mmol/L (136-145); Troponin-I HS 5 pg/mL (3.0-78.0)
[2022-05-30 00:31] LABS: International Normalized Ratio 1.1; Prothrombin Time (Protime)PT. 13.4 SECONDS (11.7-14.9)
[2022-05-30 00:41] VITALS: BP 157/75; PULSE 76; RESP 20; O2SAT 98
[2022-05-30 00:48] LABS: Squamous Epithelial Cells - UA 0 SEEN /hpf (0-5)
[2022-05-30 00:51] LABS: Color, Urine Yellow (Yellow); Glucose, Dipstick Normal (Normal); Ketone-Dipstick 15 mg/dl (Negative); Leukocyte Esterase-Dipstick 100 /ul (Negative); Nitrite-Dipstick Negative (Negative); Occult Blood-Urine 25 /ul (Negative); Protein-Dipstick 15 mg/dl (Negative); Urine Bilirubin Dipstick Negative (Negative); Urine Clarity Clear (Clear); Urine Urobilinogen Normal (Normal)
[2022-05-30 00:59] LABS: Bacteria 1+ /hpf (None Seen); Hyaline Cast 0-5 SEEN /lpf (0-5); Mucous, Urine 2+ /hpf (<or=2+); Red Blood Cells-Urine 0-5 SEEN /hpf (0-5); White Blood Cells 5-10 SEEN /hpf (0-5)
[2022-05-30 02:00] VITALS: BP 157/84; PULSE 66; RESP 18; O2SAT 96
--- NOTE | 2022-05-30 22:51 | CT_ITS ---
EXAM: CT HEAD WITHOUT INTRAVENOUS CONTRAST CLINICAL INDICATION: headache TECHNIQUE: Multiple axial images were obtained of the head without intravenous contrast. This CT exam was performed using one or more of the following dose reduction techniques: automated exposure control, adjustment of the mA and/or kV according to patient size, and/or use of iterative reconstruction technique. This report was created using [employer] report generation technology. RADIATION DOSE: CTDIvol = 44.99 mGy, DLP = 812.98 mGy-cm. COMPARISON: None. FINDINGS: BRAIN AND EXTRA-AXIAL SPACES: Mild generalized atrophy. Mild low density bilaterally in the deep white matter. No intra- or extra-axial hemorrhage. No evidence of acute infarct. No intracranial mass or mass effect. There is preservation of the diop/white matter interface. Posterior fossa structures are unremarkable. No hydrocephalus. Basal cisterns are patent. BONES/JOINTS: Unremarkable. No discrete lytic or blastic abnormalities. SINUSES: Partial opacification left ethmoid air cells. MASTOID AIR CELLS: Unremarkable. Clear. ORBITS: Visualized globes, extraocular muscles, optic nerves and retrobulbar fat appear unremarkable. CT/Brain/Head without Contrast IMPRESSION: 1. Mild generalized atrophy. Mild low density bilaterally in the deep white matter. This likely represents small vessel ischemic changes in the deep white matter. 2. No acute intracranial abnormality. 3. Partial opacification left ethmoid air cells. Electronically Signed: Casey Dejesus MD at 1:17 EDT ,
--- NOTE | 2022-05-30 22:51 | CT_ITS ---
STUDY: CT CERVICAL SPINE WITHOUT CONTRAST REASON FOR EXAM: Male, 86 years old. pain RADIATION DOSAGE (If Supplied By Facility): CTDIvol = ( 16.63 ) mGy, DLP = ( 398.33 ) mGycm TECHNIQUE: High resolution transaxial imaging was performed without contrast material. Sagittal and coronal images were reconstructed. Individualized dose optimization techniques were used for this CT. COMPARISON: Previous cervical CT of 06/20/2020. FINDINGS: Normal craniovertebral junction. No odontoid fracture. Stable mild reversal of the normal cervical lordosis. No subluxation. Fusion of the C4/5 disc space and facet joints again noted. There is mild degenerative narrowing of the C2/3 disc space. Right facet joint at this level is partially fused. Stable severe degenerative narrowing of the C3/4, C5/6 and C6/7 disc spaces with marginal osteophytes, vacuum disc phenomenon, mild endplate sclerosis and uncinate hypertrophy. There is mild/moderate flattening of the ventral aspect of the thecal sac at the degenerated levels by broad-based annular bulges and posterior osteophytes. Multilevel neural foraminal encroachment is present secondary to uncinate hypertrophy. Cervical facet arthritis is present. No posterior element fracture or facet dislocation. No acute compression fracture. No precervical soft tissue swelling. Vascular calcification noted within the neck. The visualized mastoid air cells are clear. There are stable calcified pleural parenchymal scarring at the right apex and noncalcified pleural parenchymal scarring at the left apex. Osseous structures remain demineralized with scattered stable small rounded lucencies within osseous structures. CT/Spine Cervical without Contras IMPRESSION: No significant interval change. Previous fusion of the C4/5 disc space. Multilevel degenerative disc disease. No acute fracture or subluxation. Electronically Signed: Vishal Godoy MD at 0:59 EDT ,
--- NOTE | 2022-05-30 22:52 | CT_ITS ---
EXAM: CT ABDOMEN AND PELVIS WITH INTRAVENOUS CONTRAST CLINICAL INDICATION: pain TECHNIQUE: Helically acquired images were obtained of the abdomen and pelvis with intravenous contrast. This CT exam was performed using one or more of the following dose reduction techniques: automated exposure control, adjustment of the mA and/or kV according to patient size, and/or use of iterative reconstruction technique. This report was created using [employer] report generation technology. CONTRAST: 100 cc of Isovue-370 IV. RADIATION DOSE: CTDIvol = 14.38 mGy, DLP = 687.02 mGy-cm. COMPARISON: None. FINDINGS: LOWER THORAX: Coronary artery calcifications. Small hiatal hernia. Lung bases are clear. No cardiomegaly. No significant pericardial effusion. ABDOMEN: LIVER: Unremarkable. Homogeneous. No focal mass. GALLBLADDER AND BILE DUCTS: Unremarkable. No calcified gallstones. No gallbladder distention or wall edema. No intra- or extrahepatic biliary ductal dilation. PANCREAS: Unremarkable. No focal cystic or solid mass. SPLEEN: Unremarkable. Normal size without focal cystic or solid mass. ADRENALS: Unremarkable. No nodules. KIDNEYS AND URETERS: Moderate left hydronephrosis with peripelvic stranding due to a 9 mm stone in the proximal left ureter. There is a smaller stone measuring up to 5 mm in the left renal pelvis. Cyst measuring 4 cm lower pole left kidney. No follow-up imaging required. STOMACH AND BOWEL: Unremarkable. No stomach or bowel distention. No focal inflammatory change. PELVIS: APPENDIX: No evidence of acute appendicitis. BLADDER: Unremarkable. REPRODUCTIVE: Unremarkable as visualized. No mass. ABDOMEN and PELVIS: INTRAPERITONEAL SPACE: Unremarkable. No ascites or other fluid collection. No free air. BONES/JOINTS: Unremarkable. No suspicious lytic or blastic abnormality. SOFT TISSUES: Unremarkable. No discrete abdominal or pelvic wall hernia. VASCULATURE: Unremarkable. Abdominal aorta is non-dilated. LYMPH NODES: Unremarkable. No enlarged lymph nodes. CT/Abdomen/Pelvis W IV Cont ONLY IMPRESSION: 1. Moderate left hydronephrosis with peripelvic stranding due to a 9 mm stone in the proximal left ureter. 2. Coronary artery disease. Electronically Signed: Casey Dejesus MD at 1:19 EDT ,
== END 2022-05-30 02:14 | disposition home or self-care (01) ==
PROVIDERS: Emergency Provider Emergency Medicine; Visit Provider Emergency Medicine
DX: N13.2 Hydronephrosis with renal and ureteral calculous obstruction (principal); M47.812 Spondylosis without myelopathy or radiculopathy, cervical region; R53.1 Weakness; R73.9 Hyperglycemia, unspecified; R10.11 Right upper quadrant pain; G89.29 Other chronic pain; Z87.891 Personal history of nicotine dependence
CPT/HCPCS: 70450; 71045; 72125; 74177; 80053; 81001; 83690; 84484; 85025; 85610; 87086; 87088; 93005; 96361; 96374; 99285; J7030; Q9967; A4216

== ENCOUNTER 2022-06-21 13:01 | Observation (INO) | payer MEDICARE, SELFPAY ==
[2022-06-21 13:02] VITALS: BP 136/82; PULSE 96; RESP 96; TEMP 36.1; O2SAT 96; BMI 17.6
--- NOTE | 2022-06-21 14:07 | EX.ED.DYSGE1 ---
HPI History of Present Illness Chief Complaint: Flank Pain Detail of Chief Complaint: Flank pain due to obstructing proximal left 9 mm ureteral stone Informant: patient, family and other Onset/Context/Timing Onset: Days Context: Sudden Onset Timing: Intermittent Quality: Pain Location: Left flank Current Severity: 12/04 Maximum Severity: 10/10 Worsened by: Nothing Relieved by: Nothing Associated Symptoms Associated Symptoms: Nausea and frequency Narrative Narrative: Patient is a 86-year-old male with a 9 mm obstructing left proximal ureteral stone who presents with flank pain that has resolved since being in the emergency department. He did have nausea and does report frequency. He is in hospice. He will need to sign [facility] of enrollment change since he is being admitted for stent placement. Story/history is confusing. Spoke to Dr. Oneil. Plan is admit with stent placement tomorrow. Prior similar symptoms: Yes Recent Illness/Hospitalization: No [facility] Medical History Bony metastasis Depression ETOH abuse Generalized weakness Osteoarthritis Suicidal ideation Home Medications acetaminophen 500 mg tablet 1,000 mg PO Q6H PRN PRN Pain Score 1-307/12/20 [Rx Last Taken Unknown] aluminum-mag hydroxide-simethicone 400 mg-400 mg-40 mg/5 mL oral susp 15 ml PO Q6H PRN PRN upset stomach 07/12/20 [Rx Last Taken Unknown] bisacodyl 10 mg rectal suppository 10 mg RECTAL DAILY PRN Constipation 07/12/20 [Rx Last Taken Unknown] food supplemt, lactose-reduced 0.08 gram-1.5 kcal/mL oral liquid 120 ml PO 4X/DAY 07/12/20 [Rx Last Taken Unknown] hydrocortisone 2.5 % topical cream 1 applic topical BID PRN PRN Itching 07/12/20 [Rx Last Taken Unknown] hydrocortisone acetate 25 mg rectal suppository 25 mg RECTAL BID PRN PRN Hemorrhoids 07/12/20 [Rx Last Taken Unknown] menthol 2.5 % topical gel 1 applic topical 4X/DAY PRN PRN Pain Score 1-09/0307/12/20 [Rx Last Taken Unknown] ondansetron 4 mg disintegrating tablet 4 mg PO Q8H PRN nausea and vomiting #10 tabs 05/30/22 [Rx Last Taken Unknown] oxycodone-acetaminophen 5 mg-325 mg tablet (Percocet) 1 tab PO Q6H PRN pain 3 days #12 tabs 05/30/22 [Rx Last Taken Unknown] Allergy/AdvReac Type Severity Reaction Status Date / Time venom-honey bee Allergy Anaphylaxis Verified 06/21/22 13:02 [bee venom (honey bee)] Social History (Updated 06/21/22 @ 14:[address] Hayder Rousseau MD) household members: none Smoking Status: Former smoker substance use type: does not use ROS ROS ED Constitutional Constitutional ED: Denies chills, fever(s), subjective, sweats or weight loss Eyes Eyes: Denies blurry vision or change in vision ENT ENT ED: Denies ear pain, rhinorrhea or sore throat Cardiovascular Cardiovascular: Denies chest pain or palpitations Respiratory/Chest Respiratory/Chest: Denies cough, dyspnea or dyspnea on exertion Gastrointestinal Gastrointestinal: Reports abdominal pain and nausea; Denies constipation, diarrhea, melena or vomiting Genitourinary Genitourinary ED: Reports urinary frequency; Denies dysuria or hematuria Musculoskeletal Musculoskeletal: Reports back pain; Denies arthralgias, myalgias or neck pain Integumentary Denies abscess or rash Neurologic Neurologic: Denies headache(s) or paresthesias Endocrine Endocrinology: Denies cold intolerance or heat intolerance Hematologic/Lymphatic Hematologic/Lymphatic: Denies easy bruising or lymphadenopathy EXAM Physical Exam Const Vital Signs: 06/21/22 13:02 Temperature 97 F L Temperature Source Temporal Pulse Rate 96 Respiratory Rate 96 H Blood Pressure 136/82 H Blood Pressure Mean 100 Pulse Ox 96 Oxygen Delivery Method Room Air Positive well nourished, well developed and cachectic General Appearance ED: well developed, cachectic and NAD; Negative for cyanotic, diaphoretic or pallor Nutritional Appearance: cachectic HEENT Reports dry mucous membranes Negative for trauma or tenderness Mouth ED: Yes dry mucous membranes Mouth: dry mucous membranes Eyes PERRL and EOMs intact bilaterally General Eye ED: Negative for pale conjunctiva or scleral icterus Neck no lymphadenopathy, supple and no JVD Chest Wall inspection of chest normal and palpation of chest normal Resp normal respiratory effort and clear to auscultation bilaterally Cardio regular rate, regular rhythm, S1 normal heart sound, S2 normal heart sound and no murmurs GI normal to inspection, nondistended, normoactive bowel sounds, non-tender and non-distended; Negative for hepatosplenomegaly Back/Spine no CVA tenderness Cervical Spine: Negative for cervical spine tenderness Thoracic Spine / Upper Back: Negative for thoracic spinal tenderness Extremity normal to inspection General Extremety ED: Negative for edema or tenderness General Extremity: Negative for edema Neuro No oriented x3, No CN's II-XII intact bilaterally and No no sensory deficits noted Motor Exam: strength 5/5 throughout Psych mental status grossly normal Skin no rashes or lesions noted and no wounds General Skin Exam: Negative for jaundice or pallor MDM MDM MDM Narrative Medical decision making narrative: Basic blood work and UA was obtained. This is for medical clearance for OR. Patient to be admitted on Dr. Oneil service. He would like floor to call for orders. Results were pending at the time of admission. Lab Data Attestation: I reviewed the patient's lab results. Labs: Laboratory Results - last 24 hr 06/21/22 06/21/22 14:20 14:20 WBC 10.4 RBC 4.78 Hgb 14.8 Hct 44.9 MCV 93.9 MCH 31.0 MCHC 33.0 RDW Std Deviation 47.6 H RDW Coeff of Susan 13.7 Plt Count 211 MPV 9.4 Immature Gran % (Auto) 0.400 Neut % (Auto) 68.8 Lymph % (Auto) 14.7 L [place] % (Auto) 12.8 H Eos % (Auto) 2.7 Baso % (Auto) 0.6 Absolute Neuts (auto) 7.2 Absolute Lymphs (auto) 1.53 Nucleated RBC % 0 Sodium 143 Potassium 3.9 Chloride 111 H Carbon Dioxide 27.0 Anion Gap 5 BUN 18 Creatinine 0.98 Estim Creat Clear Calc 45.96 Est GFR (MDRD) Af Amer 93 Est GFR (MDRD) Non-Af 77 BUN/Creatinine Ratio 18.3 Glucose 101 Calcium 9.1 EKG Initial EKG: Attestation: I personally reviewed and interpreted this EKG as follows: Interpretation: Sinus Rhythm (I believe patient is in a sinus rhythm with a ventricular of 74. Cures duration 110 ms. QT duration 402 ms. [place] to the left. There is no acute ischemic changes noted.) Discharge Plan Dx/Rx/DC Orders Clinical Impression: Hydronephrosis with urinary obstruction due to ureteral calculus, Bony metastasis, Generalized weakness Disposition Disposition: Acute Care Hospital [facility]
--- NOTE | 2022-06-21 14:12 | EKG12_ITS ---
Test Reason : preop Blood Pressure : / mmHG Vent. Rate : 074 BPM Atrial Rate : 065 BPM P-R Int : 000 ms QRS Dur : 110 ms QT Int : 402 ms P-R-T Axes : 000 -31 064 degrees QTc Int : 446 ms Sinus rhythm Left axis deviation Abnormal ECG Confirmed by CHIO MATTHEWS, ALYCIA ([id number]), editor news EARL RAMIREZ ([id number]) on 06/25/2022 11:22:37 AM Referred By: Soham Confirmed By:KYLE BARROSO MD
[2022-06-21 14:29] LABS: Absolute Lymphocyte Count 1.53 X10^3/uL (0.83-4.51); Absolute Neutrophil Count 7.2 X10^3/uL (2.0-7.7); Basophil# 0.06 X10^3/uL; Basophil% 0.6 % (0-1); Eosinophil# 0.28 X10^3/uL; Eosinophils% 2.7 % (0-5); Hematocrit 44.9 % (40-54); Hemoglobin 14.8 g/dL (13.0-16.5); Lymphocyte # 1.53 X10^3/ul (0.83-4.51); Lymphocyte % 14.7 % (19-41); Mean Corpuscular Volume 93.9 fL (80-94); Mean Platelet Vol. 9.4 fl (6.2-12.0); Monocyte# 1.33 X10^3/uL; Monocyte% 12.8 % (0-10); NRBC Flagged by Analyzer 0 % (0-5); Neutrophil # 7.19 X10^3/uL (2.7-7.7); Neutrophil % 68.8 % (47-70); Platelet Count 211 K/mm3 (150-450); RBC Distribution Width CV 13.7 % (11.6-14.6); RBC Distribution Width SD 47.6 fl (35.1-43.9); Red Blood Count 4.78 M/mm3 (4.6-6.2); White Blood Count 10.4 K/mm3 (4.4-11.0)
[2022-06-21 14:42] LABS: Anion Gap 5 (5-15); BUN 18 mg/dL (7-18); BUN/Creat Ratio 18.3 RATIO (10-20); Calcium,Total 9.1 mg/dL (8.5-10.1); Chloride 111 mmol/L (98-107); Creatinine, Serum 0.98 mg/dL (0.70-1.30); EST Glomerular Filtration Rate 77 mL/min (>60); Est Glom Filt Rate - Afr Amer 93 mL/min (>60); Estimated Creatinine Clearance 45.96 ml/min; Glucose 101 mg/dL (74-106); Potassium 3.9 mmol/L (3.5-5.1); Sodium Level 143 mmol/L (136-145)
[2022-06-21 15:40] VITALS: BMI 17.9
[2022-06-21 15:48] VITALS: BP 142/69; PULSE 65; RESP 16; TEMP 37.1; O2SAT 97
[2022-06-21] MEDS: 0.9% Normal Saline 1,000 ML 150 ML IV ×2 (16:00→21:52)
[2022-06-21] MEDS: 0.9% Saline Lock 10 ML Syringe IV ×2 (16:00→22:32)
--- NOTE | 2022-06-21 16:02 | PCM.HP.STD ---
HPI - General General Date of Admission: 06/21/22 Chief Complaint: left kidney stone HPI Narrative DONYA GRAF, is a 86 M who presents with obstruction from a left kidney stone. Admit to hospital for off and on weakness and pain. COUNTS INCLUDE 234 BEDS AT THE [facility] Medical History Bony metastasis Depression ETOH abuse Former smoker Generalized weakness Osteoarthritis Suicidal ideation Home Medications acetaminophen 500 mg tablet 1,000 mg PO Q6H PRN PRN Pain Score 1-307/12/20 [Rx Last Taken Unknown] aluminum-mag hydroxide-simethicone 400 mg-400 mg-40 mg/5 mL oral susp 15 ml PO Q6H PRN PRN upset stomach 07/12/20 [Rx Last Taken Unknown] bisacodyl 10 mg rectal suppository 10 mg RECTAL DAILY PRN Constipation 07/12/20 [Rx Last Taken Unknown] food supplemt, lactose-reduced 0.08 gram-1.5 kcal/mL oral liquid 120 ml PO 4X/DAY 07/12/20 [Rx Last Taken Unknown] hydrocortisone 2.5 % topical cream 1 applic topical BID PRN PRN Itching 07/12/20 [Rx Last Taken Unknown] hydrocortisone acetate 25 mg rectal suppository 25 mg RECTAL BID PRN PRN Hemorrhoids 07/12/20 [Rx Last Taken Unknown] menthol 2.5 % topical gel 1 applic topical 4X/DAY PRN PRN Pain Score 1-1007/12/20 [Rx Last Taken Unknown] ondansetron 4 mg disintegrating tablet 4 mg PO Q8H PRN nausea and vomiting #10 tabs 05/30/22 [Rx Last Taken Unknown] oxycodone-acetaminophen 5 mg-325 mg tablet (Percocet) 1 tab PO Q6H PRN pain 3 days #12 tabs 05/30/22 [Rx Last Taken Unknown] Allergy/AdvReac Type Severity Reaction Status Date / Time venom-honey bee Allergy Anaphylaxis Verified 06/21/22 13:02 [bee venom (honey bee)] Social History household members: none Smoking Status: Former smoker substance use type: does not use ROS Constitutional Constitutional: Denies chills, fever(s) or malaise Eyes Eyes: Denies blurry vision or change in vision ENT HEENT: Reports none Cardiovascular Cardiovascular: Denies chest pain or palpitations Respiratory/Chest Respiratory/Chest: Denies cough or shortness of breath with exertion Gastrointestinal Gastrointestinal: Denies abdominal pain, constipation or diarrhea Musculoskeletal Musculoskeletal: Denies back pain, joint stiffness or joint swelling Integumentary Integumentary: Denies dry skin, jaundice, lesions or rash Neurologic Neurologic: Denies confusion, syncope or weakness Psychiatric Psychiatric: Reports none; Denies anxiety or depression Endocrine Endocrinology: Denies excessive sweating, fatigue or flushing Hematologic/Lymphatic Hematologic/Lymphatic: Denies anemia, easy bleeding or easy bruising Vital Signs Vital Signs Vital Signs: 06/21/22 13:02 06/21/22 15:48 Temperature 97 F L 98.8 F Temperature Source Temporal Oral Pulse Rate 96 65 Respiratory Rate 96 H 16 Blood Pressure 136/82 H 142/69 H Blood Pressure Mean 100 93 Blood Pressure Source Monitor Blood Pressure Position Sitting Blood Pressure Location Right Arm Pulse Ox 96 97 Oxygen Delivery Method Room Air Room Air Weight Weight: 59.783 kg Body Mass Index (BMI) 17.9 Physical Exam Const alert and oriented x3 General Appearance: cooperative HEENT normocephalic, head/scalp atraumatic, EAC's normal and TM's normal bilaterally Eyes PERRL and EOMs intact bilaterally Pupil: sluggish Neck no lymphadenopathy, supple and no JVD General: trachea midline Lymph Lymphatic: no lymphadenopathy noted, lymphedema and lymphadenopathy Resp normal respiratory effort, normal air movement and clear to auscultation bilaterally Cardio regular rate, regular rhythm and peripheral pulses 2+ throughout GI soft to palpation, non-tender and non-distended Extremity normal capillary refill and no clubbing, cyanosis or edema General Extremity: no tenderness to palpation of joints or extremities Skin no rashes or lesions noted General Skin Exam: turgor normal Lesions: no lesions Rashes: no rashes Neuro CN's II-XII intact bilaterally Speech: speech normal Motor Exam: strength 5/5 throughout; Negative for general weakness Psych thought process normal, cooperative and affect normal Appearance: appropriate Results Lab / Micro Data Result Diagrams: 06/21/22 14:20 06/21/22 14:20 Labs: Laboratory Results - last 24 hr 06/21/22 14:20: WBC 10.4, RBC 4.78, Hgb 14.8, Hct 44.9, MCV 93.9, MCH 31.0, MCHC 33.0, RDW Std Deviation 47.6 H, RDW Coeff of Susan 13.7, Plt Count 211, MPV 9.4, Immature Gran % (Auto) 0.400, Neut % (Auto) 68.8, Lymph % (Auto) 14.7 L, [place] % (Auto) 12.8 H, Eos % (Auto) 2.7, Baso % (Auto) 0.6, Absolute Neuts (auto) 7.2, Absolute Lymphs (auto) 1.53, Nucleated RBC % 0 06/21/22 14:20: Sodium 143, Potassium 3.9, Chloride 111 H, Carbon Dioxide 27.0, Anion Gap 5, BUN 18, Creatinine 0.98, Estim Creat Clear Calc 45.96, Est GFR (MDRD) Af Amer 93, Est GFR (MDRD) Non-Af 77, BUN/Creatinine Ratio 18.3, Glucose 101, Calcium 9.1 Assessment & Plan Assessment/Plan (1) Kidney stone on left side: PLAN: admit for kidney stone, plan for cysto left stent placement tomorrow in OR
[2022-06-21 16:30] VITALS: PULSE 66
[2022-06-21 17:03] LABS: Mucous, Urine 0 SEEN /hpf (<or=2+); Squamous Epithelial Cells - UA 0 SEEN /hpf (0-5)
[2022-06-21 17:08] LABS: Color, Urine Yellow (Yellow); Glucose, Dipstick Normal (Normal); Ketone-Dipstick Negative (Negative); Leukocyte Esterase-Dipstick 100 /ul (Negative); Nitrite-Dipstick Negative (Negative); Occult Blood-Urine 25 /ul (Negative); Protein-Dipstick 30 mg/dl (Negative); Specific Gravity, Urine 1.025 (1.002-1.030); Urine Bilirubin Dipstick Negative (Negative); Urine Clarity Clear (Clear); Urine Urobilinogen Normal (Normal)
[2022-06-21 17:27] LABS: Bacteria RARE /hpf (None Seen); Red Blood Cells-Urine 0-5 SEEN /hpf (0-5); White Blood Cells 5-10 SEEN /hpf (0-5)
[2022-06-21 20:14] VITALS: BP 124/71; PULSE 78; RESP 16; TEMP 36.6; O2SAT 97
[2022-06-21 20:22] VITALS: BMI 17.9
[2022-06-22] VITALS (10 sets, daily range): BP systolic 105–151; BP diastolic 63–77; PULSE 56–84; RESP 15–18; TEMP 36.3–36.8; O2SAT 93–100
[2022-06-22] MEDS: 0.9% Normal Saline 1,000 ML 150 ML IV ×2 (04:09→11:02)
[2022-06-22 05:59] LABS: Absolute Neutrophil Count 3.9 X10^3/uL (2.0-7.7); Basophil# 0.06 X10^3/uL; Basophil% 0.9 % (0-1); Eosinophil# 0.27 X10^3/uL; Eosinophils% 3.8 % (0-5); Hematocrit 43.1 % (40-54); Hemoglobin 14.1 g/dL (13.0-16.5); Lymphocyte % 24.2 % (19-41); Mean Corp Hgb Conc 32.7 g/dL (32-36); Mean Corpuscular Hgb 31.3 pg (27.0-32.0); Mean Corpuscular Volume 95.8 fL (80-94); Mean Platelet Vol. 9.8 fl (6.2-12.0); Monocyte# 1.02 X10^3/uL; Monocyte% 14.5 % (0-10); NRBC Flagged by Analyzer 0 % (0-5); Neutrophil # 3.94 X10^3/uL (2.7-7.7); Neutrophil % 56.2 % (47-70); Platelet Count 190 K/mm3 (150-450); RBC Distribution Width CV 13.7 % (11.6-14.6); RBC Distribution Width SD 48.3 fl (35.1-43.9)
[2022-06-22 06:31] LABS: Anion Gap 6 (5-15); BUN 17 mg/dL (7-18); BUN/Creat Ratio 24.6 RATIO (10-20); Calcium,Total 8.6 mg/dL (8.5-10.1); Chloride 115 mmol/L (98-107); Creatinine, Serum 0.69 mg/dL (0.70-1.30); EST Glomerular Filtration Rate 116 mL/min (>60); Est Glom Filt Rate - Afr Amer 140 mL/min (>60); Estimated Creatinine Clearance 45.67 ml/min; Glucose 85 mg/dL (74-106); Potassium 4.1 mmol/L (3.5-5.1); Sodium Level 143 mmol/L (136-145)
--- NOTE | 2022-06-22 10:57 | CASEMGMT ---
Social Work Note Reason for Referral: Hospice, H+P note history of Depression, ETOH Abuse, Suicidal Ideations SW reviewed chart. Pt presented to [facility] from Home with Hospice Services, revoked services to get treatment. SW in to speak with pt. SW introduced self and role at [facility]. SW asked pt if he came from home with Hospice services, pt did not answer. SW asked pt if he came from Home with [facility], pt states no. SW asked pt what company his hospice is through then and pt did not answer. SW asked pt if his daughter Frantz would know and pt did not answer. SW asked pt about ETOH abuse as it is noted that pt has history of ETOH abuse. SW asked pt if he is still drinking ETOH and pt states no. SW asked pt about his history of depression and if he is on any medications. Pt did not answer. SW asked pt if his depression is currently well managed, pt did not answer. SW informed pt that if he feels like he needs to be on medications for his depression to ask Hospice for medications. Pt did not answer. SW asked pt if he had any thoughts or plans to harm himself or others, pt did not answer. SW informed pt that this worker will call his daughter Frantz. SW reviewed paper chart, it appears pt was active with [facility] as there are documents from [facility] [place] in pt's chart. CHEMA placed a call to pt's daughter Frantz and left message requesting call back. CHEMA placed a call to [facility] and spoke with Cathleen. Cathleen states that since pt revoked hospice, a new referral needs to be made for pt. SW will need to speak to intake and provide a new referral. CHEMA informed Cathleen that this worker had a call out to pt's daughter to confirm discharge plans, will follow up with intake once SW speaks with pt's daughter. Shirley Salazar CONSULTING TECHNICAL DIRECTOR, MONUMENTAL STONEMASON
--- NOTE | 2022-06-22 12:30 | CASEMGMT ---
Social Work Note SW received call from pt's daughter Frantz stating she just wants pt to return home with no hospice services at this time. Frantz states they will reevaluate with Hospice once pt gets through the procedures involved with his Kidney Stones. Shirley Salazar HANDS AND DIAL INSPECTOR, DIGITAL MARKETING STRATEGIST
--- NOTE | 2022-06-22 12:54 | CASEMGMT ---
Addendum entered by Mile Rocha 06/22/22 12:57: TC to pt dtr, left message with call back information and requested returned call. Original Note: ÁNGEL WOODWARD in to discuss BOWMAN form with patient. ÁNGEL WOODWARD explained BOWMAN form, patient voiced understanding. Pt signed form and filed in chart. Pt provided with a copy of signed BOWMAN form. Pt states he has no concerns with going home. States he lives with his dtr. Discussed that pt previously had hospice, he states he did not. Patient had no further questions or concerns at this time.
[2022-06-22] MEDS: 0.9% Normal Saline 1,000 ML 15 ML IV ×2 (17:35→19:53)
--- NOTE | 2022-06-22 18:05 | CASEMGMT ---
Addendum entered by Shirley Salazar 06/22/22 18:13: Plan: Home. Pt's daughter Frantz does not want pt to resume Hospice services at discharge. Original Note: Social Work Note SW attempted to meet with pt to continue discussion of pt's depression. Pt is not on floor at this time. SW placed a call to pt's daughter Frantz. Frantz states that pt does not drink ETOH anymore. Frantz states he also has no concerns that pt would harm himself. Frantz states that pt has been with them for 7 years. Frantz states that pt will get depressed sometimes. Frantz states pt is old. SW asked Frantz if pt is on any medications for depression. Frantz states that years ago pt was on antidepressants but states pt didn't continue with that. SW informed Frantz that if they feel pt needs to be on medications again for depression to reach out to his family doctors. SW also spoke with Frantz that if pt starts to say suicidal comments or thoughts to reach out to Crisis or counselor. Frantz states understanding, states that was all in pt's past. As noted, Frantz states he has no concerns with pt harming self. Per RN CM, pt lives with his daughter. Shirley Salazar PROGRAM HOST, WEALTH MANAGEMENT ADVISOR
--- NOTE | 2022-06-22 18:25 | NURSING ---
off unit via bed 1640 for scheduled procedure
[2022-06-22] MEDS: Cefazolin 2 GM in 0.9% Normal Saline 100 ML IV (18:28)
--- NOTE | 2022-06-22 19:19 | DCINST_ITS ---
Discharge Instructions Diet Discharge Diet: No restrictions Activity Discharge Activity: Return to Normal Activity Additional Activity Instructions:: remove stent by pulling string from penis in 7 days follow up with DR Oneil for any problems as needed for now stone broke up all the way Rx for antibiotic and Rx for mild pain meds sent to pharmacy. call office with questions. Follow Up Care Please Follow Up With: Jerrod Oneil MD When: follow up as needed for now, remove stent in 7 days by pulling string. Test Results: Test results from this visit will be discussed in further detail at your follow- up appointment, if applicable. Discharge Plan Admission Admit Date/Time: 06/21/22 16:00 Primary Reason for Your Visit: kidney stone Attending Provider: Jerrod Oneil Primary Care Provider: Lidia Garcia Discharge Orders/Prescriptions Prescriptions: New ciprofloxacin HCl [Cipro] 500 mg tablet 500 mg PO BID Qty: 6 0RF ibuprofen 600 mg tablet 600 mg PO Q6H PRN (Reason: fever or pain) Qty: 20 0RF Continued acetaminophen 500 MG tablet 1,000 mg PO Q6H PRN PRN (Reason: Pain Score 1-3/10) 0RF hydrocortisone acetate 25 MG suppository 25 mg RECTAL BID PRN PRN (Reason: Hemorrhoids) 0RF bisacodyl 10 MG suppository 10 mg RECTAL DAILY PRN (Reason: Constipation) 0RF hydrocortisone 1 APPLIC cream 1 applic topical BID PRN PRN (Reason: Itching) 0RF Protocol: *Topical Application Instructions APPLICATION INSTRUCTIONS: Bilateral ears, inner. alum-mag hydroxide-simeth 30 ML suspension 15 ml PO Q6H PRN PRN (Reason: upset stomach) 0RF menthol 1 APPLIC gel 1 applic topical 4X/DAY PRN PRN (Reason: Pain Score 1-10/10) 0RF food supplemt, lactose-reduced 120 ML liquid 120 ml PO 4X/DAY 0RF oxycodone-acetaminophen [Percocet] 5-325 mg tablet 1 tab PO Q6H PRN (Reason: pain) 3 Days Qty: 12 0RF ondansetron 4 mg tablet,disintegrating 4 mg PO Q8H PRN (Reason: nausea and vomiting) Qty: 10 0RF Referrals / Follow Up: Lidia Garcia, [Primary Care Provider] - Disposition Discharge Orders: Discharge Patient (Routine); Ordered 06/22/22 Ordered By: Dr. Jerrod Oneil
--- NOTE | 2022-06-22 19:21 | OP.PCM_ITS ---
Report of Operation Date of Procedure: 06/22/22 Pre-Operative Diagnosis: Left kidney Post-Operative Diagnosis: The same Surgery/Procedure Performed:: Cystoscopy left stent placement and left extracorporeal shockwave lithotripsy Description of Surgical Findings:: Patient presents to the hospital for treatment of a kidney stone with shockwave lithotripsy. In the preoperative area and x-ray was done to confirm the location of the stone. The x-ray was reviewed and the stone location was reviewed. In the preoperative setting I spoke with the patient regarding the treatment of the stone how the treatment would be conducted and the expectations after surgery. The patient understands there is a risk of bleeding and infection. Also discussed the very rare risk of hematoma or damage to the kidney. We also discussed the risk that the shockwave machine will fail to break the stone adequately and that the patient may need other surgical procedures. We also discussed the possibility that the patient may need a stent after the procedure. After reviewing the procedure with the patient, the patient is signed the consent form all the patient's questions were addressed and was taken back to the operating room for treatment of a kidney stone. Patient was taken back to the operating room, patient was identified by the nursing staff, we identified the side of the treatment and the patient side of treatment had been marked by my initials. The patient underwent general anesthetic and was placed supine on the lithotripter table. The urethra and genitals were prepped and draped in usual sterile fashion. Using a 21 Ukrainian rigid cystourethroscope the entire length of the urethra was normal then went into the bladder. Identified the trigone the left and right ureteral orifice. I then cannulated the Left orifice and advanced a wire up into the kidney. I then backloaded a 5 Ukrainian open ended catheter over the wire and injected contrast to delineate the anatomy. After the retrograde was performed I then used fluoroscopic images and guidance to advanced a wire up into the kidney and over the 0.038 glidewire I advanced a 6 Ukrainian by 26 cm double pigtail stent. I then pulled the 0.038 Glidewire off and the stent coiled in the kidney bladder good position. The bladder was then drained. We confirmed the position of the stent by fluoroscopy. We then used fluoroscopy to identify the stone on the left side. We then positioned the patient under the lithotripter and we used triangulation technique to identify the location of the stone and then we made sure that the stone was engaged in the F2 focal point of F2 Donier lithoprior machine. Once the patient was positioned appropriately and the stone was identified and placed in the F2 focal point of the lithotripter machine we then proceeded with shockwave lithotripsy. In the beginning the shockwave was delivered at a rate of 90 shocks per minute, we monitor the EKG for any ectopy. The power was slowly increased to 5 kV and subsequently at the 7 kV. We then proceeded with the treatment we move the therapy had around during the treatment to make sure the stone stayed in the F2 focal point during the entire treatment and after 3000 shockwaves were delivered to the stone under fluoroscopic guidance the treatment was completed. The patient was given instructions to call the office to make an a follow-up appointment with an xray to evaluate the success of the treatment, pateint understands that its possible the stones may need another procedure.At this point the patient's anesthetic was reversed patient was extubated and taken back to the PACU in stable condition. Surgeon: Jerrod Oneil Type of Anesthesia: General Drains: stent
[2022-06-23 00:40] VITALS: BP 120/58; PULSE 57; RESP 18; TEMP 36.6; O2SAT 97
[2022-06-23] MEDS: 0.9% Normal Saline 1,000 ML 15 ML IV (02:11)
--- NOTE | 2022-06-23 02:55 | NURSING ---
Late entry - 2100 - Pt has DC orders. Pt's daughter states she would like pt to stay overnight. Dr Oneil notified & MD ordered OK for pt to be DC'd 06/23.
[2022-06-23 06:20] VITALS: BP 115/56; PULSE 56; RESP 18; TEMP 36.8; O2SAT 97
[2022-06-23 07:55] VITALS: BP 134/70; PULSE 59; RESP 18; TEMP 36.8; O2SAT 98
--- NOTE | 2022-06-23 09:47 | PN.URO_ITS ---
Subjective Subjective Status post ESWL and stent placement, I had him discharge for last night but family wanted to keep him overnight transportation issues so he stayed overnight he should be will go home today he has a stent in place with a long string in attached to the stent communicated to the family that the stent needs to be ángel barrie they can either pull the string themselves by next or need to come to my office to have the stent removed by my staff or myself. Objective Data Objective Data Vital Signs: Vital Signs Temp Pulse Resp BP Pulse Ox O2 Del Method 98.3 F 59 L 18 134/70 H 98 Room Air 06/23/22 07:55 06/23/22 07:55 06/23/22 07:55 06/23/22 07:55 06/23/22 07:55 06/23/22 07:55 Oxygen Delivery Method Room Air Weight: 59.783 kg Body Mass Index (BMI) 17.9 Intake & Output: Intake and Output for Last 24 Hours 06/21/22 06/22/22 06/23/22 23:59 23:59 23:59 Intake Total 880 / 880 3087.0 / 3327.0 334.5 / 334.5 Output Total 250 / 250 850 / 1300 1475 / 1475 Balance 630 / 630 2237.0 / 2027.0 -1140.5 / -1140.5 Lab / Micro Data Result Diagrams: 06/22/22 05:15 06/22/22 05:15
[2022-06-23 10:39] VITALS: BP 128/70; PULSE 55; RESP 18; TEMP 37.2; O2SAT 98
== END 2022-06-23 11:06 | disposition home or self-care (01) ==
LOC: ED 14:23 → MS3 16:04
PROVIDERS: Anesthesiology; Admitting Provider Urology; Emergency Provider Emergency Medicine; PCP Family Medicine; Visit Provider Urology
PROC: (CPT 50590; principal; 2022-06-22 17:35)
DX: N13.2 Hydronephrosis with renal and ureteral calculous obstruction (principal); C79.51 Secondary malignant neoplasm of bone; J43.9 Emphysema, unspecified; Z87.891 Personal history of nicotine dependence; M19.90 Unspecified osteoarthritis, unspecified site; Z79.899 Other long term (current) drug therapy; I25.10 Atherosclerotic heart disease of native coronary artery without angina pectoris; K21.9 Gastro-esophageal reflux disease without esophagitis
CPT/HCPCS: 36415; 80048; 81001; 85025; 93005; 96360; 96361; 99218; 99282; J7030; A4216; C1769; G0378; J2405

== ENCOUNTER 2022-10-23 19:02 | Inpatient (IN) | payer MEDICARE, SELFPAY ==
[2022-10-23 19:04] VITALS: BP 146/97; PULSE 88; RESP 16; TEMP 36.6; O2SAT 96; BMI 19.7
--- NOTE | 2022-10-23 19:50 | RAD_ITS ---
STUDY: X-RAY - PELVIS AND RIGHT HIP REASON FOR EXAM: Male, 87 years old. Right hip pain after fall. TECHNIQUE: 3 views of the pelvis and hip. COMPARISON: Pelvis, September 04, 2015. FINDINGS: There is air within colon and small bowel loops suggestive of ileus. Normal visualized soft tissue structures. Vascular calcifications are noted. Degenerative changes of the lower lumbar spine. Normal bilateral iliac wings. There is limited visualization of the sacroiliac joints and sacrum due to overlying bowel gas.. Normal bilateral superior and inferior pubic rami. There are degenerative changes of the pubic symphysis with articular narrowing and sclerosis. Normal bilateral ischial tuberosities. There is a medullary evelin with transfixing gamma nail extending into the femoral head and neck. There is interval healing of the intertrochanteric fracture seen on the previous study. There is no new fracture. Normal acetabulum. There is mild articular joint space narrowing of the hip. RAD/HIP, UNI W/ Pelvis 2-3 Views IMPRESSION: 1. No acute fracture or dislocation. 2. Healed right intertrochanteric fracture with internal fixation. 3. Question ileus. Electronically Signed: Norbert Galindo DO at 20:10 EST ,
--- NOTE | 2022-10-23 20:31 | CT_ITS ---
INDICATION: Right hip pain after fall. EXAMINATION: CT ABDOMEN AND PELVIS WITH CONTRAST - CT Abdomen And Pelvis W/ Contrast Injection TECHNIQUE: Helically acquired images were obtained of the abdomen and pelvis following IV contrast. A radiation dose optimization technique was used for this scan. IV Contrast dosage and agent: 100 mL of Isovue 370 Oral contrast: None. COMPARISON: None. FINDINGS: LOWER CHEST: Lung bases are clear. No cardiomegaly or pericardial effusion. LIVER: Homogeneous. No focal mass. GALLBLADDER AND BILIARY TREE: No calcified gallstones. No gallbladder distension or wall edema. No intra- or extrahepatic biliary ductal dilation. PANCREAS: No focal cystic or solid mass. SPLEEN: Normal size without focal cystic or solid mass. ADRENAL GLANDS: No nodules. KIDNEYS AND URETERS: Normal right kidney. Normal right ureter. There is a small cyst in the upper pole of the left kidney. A larger cyst is seen extending off the lower pole. There is mild hydronephrosis. Normal left ureter. PERITONEUM: No ascites or free air. No other fluid collection. BOWEL: Normal stomach. Diffusely gas distended small bowel loops without mass or obstruction. Air and feces is seen throughout the colon without mass or obstruction. Nonvisualization the appendix. LYMPH NODES: No enlarged mesenteric or retroperitoneal lymph nodes. VESSELS: Atherosclerotic changes of the abdominal aorta and iliac arteries. Normal IVC. URINARY BLADDER: Unremarkable. REPRODUCTIVE ORGANS: Mildly enlarged prostate with central calcifications. ABDOMINAL WALL: No discrete abdominal or pelvic wall hernia. BONES: Degenerative changes of the lower lumbar spine. No evidence of acute pelvic fracture. There is evidence of internal fixation of a remote right intertrochanteric fracture which is healed. There is no evidence of acute femoral fracture. CT/Abdomen/Pelvis W IV Cont ONLY IMPRESSION: 1. No evidence of femoral or pelvic fracture. 2. Findings suggestive of ileus. There is no evidence of obstruction. 3. Left renal cysts with mild hydronephrosis. There is no ureterectasis. 4. Mildly enlarged prostate. 5. Atherosclerotic changes of the abdominal aorta and iliac arteries. Electronically Signed: Norbert Galindo DO at 22:04 EST ,
--- NOTE | 2022-10-23 20:33 | EDS_ITS ---
HPI History of Present Illness Chief Complaint: Fall Informant: patient Narrative Narrative: Patient is 87-year-old male with history of debility, weakness, alcohol abuse and prior right intertrochanteric femur fracture presenting for right hip pain, falls and generalized weakness. Patient states he tripped on a rock yesterday and fell landing on his right hip. He has had pain since then. Today he dropped his urinal and when he tried to pick it up he had severe pain which caused him to fall again. He denies ever hitting his head or any loss of conscious. He states he is not on any blood thinners. He lives at home with his daughter. Patient states he had a kidney stone procedure recently and has had issues ever since. Currently is only complaining of right hip pain. States he uses a walker to help him ambulate. Notes that he has been feeling lightheaded lately and has had intermittent chest pain. Denies any shortness of breath or difficulty breathing. Denies any fever or chills. Denies any GI symptoms. No other complaints at this time. [facility] Medical History Bony metastasis Coronary artery disease Depression Emphysema lung ETOH abuse Former smoker Former smoker Generalized weakness Osteoarthritis Scarlet fever Suicidal ideation Home Medications acetaminophen 500 mg tablet 1,000 mg PO Q6H PRN PRN Pain Score 1-3/10 07/12/20 [Rx Last Taken Unknown] ibuprofen 600 mg tablet 600 mg PO Q6H PRN fever or pain #20 tabs 06/22/22 [Rx Last Taken Unknown] lorazepam 0.5 mg tablet 5 mg PO DAILY PRN PRN Pain 10/23/22 [History Last Taken Unknown] oxycodone 5 mg tablet 5 mg PO PRN PRN Pain 10/23/22 [History Last Taken Unknown] Allergy/AdvReac Type Severity Reaction Status Date / Time venom-honey bee Allergy Anaphylaxis Verified 06/21/22 13:02 [bee venom (honey bee)] Social History household members: none Smoking Status: Former smoker substance use type: does not use ROS ROS ED Constitutional Constitutional ED: Reports other Details: Generalized weakness ; Denies chills or fever(s) Eyes Eyes: Denies change in vision ENT ENT ED: Denies rhinorrhea or sore throat Cardiovascular Cardiovascular: Reports chest pain Respiratory/Chest Respiratory/Chest: Denies cough or dyspnea Gastrointestinal Gastrointestinal: Denies abdominal pain, nausea or vomiting Genitourinary Genitourinary ED: Denies dysuria or hematuria Musculoskeletal Musculoskeletal: Reports other Details: Right hip pain Integumentary Reports other Details: Ecchymosis to left forearm ; Denies rash Neurologic Neurologic: Denies headache(s) or paresthesias Psychiatric Psychiatric: Denies anxiety Hematologic/Lymphatic Hematologic/Lymphatic: Denies easy bleeding or easy bruising EXAM Physical Exam Const Vital Signs: 10/23/22 19:04 10/23/22 19:08 10/23/22 21:03 Temperature 98 F Temperature Source Oral Pulse Rate 88 78 Respiratory Rate 16 16 Respiratory Effort Normal Respiratory Depth Normal Respiratory Pattern Normal Blood Pressure 146/97 H 152/87 H Blood Pressure Mean 113 108 Pulse Ox 96 97 Oxygen Delivery Method Room Air Room Air Room Air 10/23/22 23:13 Temperature 98 F Temperature Source Temporal Pulse Rate 74 Respiratory Rate 16 Respiratory Effort Respiratory Depth Respiratory Pattern Blood Pressure 143/78 H Blood Pressure Mean 99 Pulse Ox 96 Oxygen Delivery Method Room Air Positive well developed Constitutional Narrative: Frail-appearing, smells slightly of urine General Appearance ED: well developed and NAD HEENT Reports moist mucous membranes Negative for trauma Eyes PERRL and EOMs intact bilaterally Neck supple and no JVD Neck Narrative: No midline tenderness Chest Wall inspection of chest normal and palpation of chest normal Resp normal respiratory effort and clear to auscultation bilaterally Cardio regular rate, regular rhythm and no murmurs GI normal to inspection, nondistended, normoactive bowel sounds and non-tender Back/Spine no CVA tenderness Extremity normal to inspection Extremity Narrative: Mild tenderness over the right pelvis. No pinpoint bony tenderness. Normal range of motion of the hips. General Extremety ED: Negative for edema General Extremity: Negative for edema Neuro oriented x3 Neuro Narrative: No focal deficits appreciated. Sensorium / Orientation: alert Motor Exam: general weakness Psych mental status grossly normal Skin no rashes or lesions noted Skin Narrative: Scattered ecchymosis on the left forearm. No skin tears appreciated MDM MDM MDM Narrative Medical decision making narrative: Patient is evaluated after 2 falls in the last 24 hours generalized weakness. Upon further discussion he admits to generalized weakness, dizziness and intermittent episodes of chest pain. He lives at home with his daughter. Seems to have had a general decline over the past few months. Urinalysis is consistent with a UTI we does not have any fever, leukocytosis or other sirs criteria. Patient is unkept and weak appearing. He is agreeable with admission for further evaluation of his weakness as well as treatment of UTI. X-ray of the hip as well as the chest showed no acute process as interpreted myself as well as radiology. His hip x-ray did showed ileus. CT of the abdomen pelvis is added on for further evaluation. CT again is suggestive of an ileus but no other acute process is seen. Patient is noted to have cerumen impaction in the right ear however he refused irrigation of this while in the emergency room. Patient started on IV Rocephin and urine culture sent. Lab Data Attestation: I reviewed the patient's lab results. Labs: Laboratory Results - last 24 hr 10/23/22 10/23/22 10/23/22 20:55 20:55 20:55 WBC 8.0 RBC 5.17 Hgb 15.7 Hct 48.1 MCV 93.0 MCH 30.4 MCHC 32.6 RDW Std Deviation 48.7 H RDW Coeff of Susan 14.1 Plt Count 146 L MPV 10.6 Immature Gran % (Auto) 0.700 Neut % (Auto) 69.8 Lymph % (Auto) 13.6 L [place] % (Auto) 12.2 H Eos % (Auto) 3.1 Baso % (Auto) 0.6 Absolute Neuts (auto) 5.6 Absolute Lymphs (auto) 1.09 Nucleated RBC % 0 Differential Comment SCANNED Sodium 137 Potassium 5.1 Chloride 110 H Carbon Dioxide 20.0 L Anion Gap 7 BUN 22 H Creatinine 0.91 Estim Creat Clear Calc 54.31 Est GFR (MDRD) Af Amer 101 Est GFR (MDRD) Non-Af 84 BUN/Creatinine Ratio 24.1 H Glucose 104 Calcium 9.1 Total Bilirubin 2.20 H AST 36 ALT 22 Alkaline Phosphatase 75 Troponin I High Sens 6 Total Protein 6.5 Albumin 2.7 L Globulin 3.8 Albumin/Globulin Ratio 0.7 L Urine Color Yellow Urine Clarity Sl. Cloudy Urine pH 6.0 Ur Specific [place] 1.025 Urine Protein 15 H Urine Glucose (UA) Normal Urine Ketones 15 H Urine Occult Blood 25 H Urine Nitrite Negative Urine Bilirubin Negative Urine Urobilinogen Normal Ur Leukocyte Esterase 100 H Urine RBC 0 SEEN Urine WBC 25-50 SEEN Ur Squamous Epith Cells 0 SEEN Urine Bacteria 3+ Urine Mucus 0 SEEN Radiography Diagnostic Testing: Clinical Impression(s) from Imaging Studies Hip/Pelvis X-Ray 10/23/22 19:50 IMPRESSION: 1. No acute fracture or dislocation. 2. Healed right intertrochanteric fracture with internal fixation. 3. Question ileus. Electronically Signed: Norbert Galindo DO at 20:10 EST Reading Location ID and State: [facility] / [place] Tel [phone], Service support , Abdomen/Pelvis CT 10/23/22 20:31 IMPRESSION: 1. No evidence of femoral or pelvic fracture. 2. Findings suggestive of ileus. There is no evidence of obstruction. 3. Left renal cysts with mild hydronephrosis. There is no ureterectasis. 4. Mildly enlarged prostate. 5. Atherosclerotic changes of the abdominal aorta and iliac arteries. Electronically Signed: Norbert Galindo DO at 22:04 EST Reading Location ID and State: [employer] [facility] [place] Tel [phone], Service support , Chest X-Ray 10/23/22 21:37 IMPRESSION: Question COPD. There is no acute abnormality or major interval change. Electronically Signed: Norbert Galindo DO at 21:54 EST Reading Location ID and State: [employer] [facility] [place] Tel [phone], Service support , Rhythm Strip Rhythm Strip: Sinus Rhythm Rate: 75 Ectopy: None EKG Initial EKG: Attestation: I personally reviewed and interpreted this EKG as follows: Comments: Accelerated junctional rhythm at a rate of 75 bpm Normal axis Normal intervals Normal ST segments Discharge Plan Triage Chief Complaint: Fall ED Provider: Mallory Jewell Dx/Rx/DC Orders Clinical Impression: Debility, Fall, Acute UTI Prescriptions: No Action acetaminophen 500 MG tablet 1,000 mg PO Q6H PRN PRN (Reason: Pain Score 1-3/10) 0RF ibuprofen 600 mg tablet 600 mg PO Q6H PRN (Reason: fever or pain) Qty: 20 0RF lorazepam 0.5 mg tablet 5 mg PO DAILY PRN PRN (Reason: Pain) Label Comments: TAKE 1 TABLET BY MOUTH EVERY 4 HOURS NEEDED FOR ANXIETY oxycodone 5 mg tablet 5 mg PO PRN PRN (Reason: Pain) Label Comments: TAKE 1/2 (ONE-HALF) OF A TABLET BY MOUTH EVERY 4 HOURS NEEDED FOR PAIN Primary Care Provider: Lidia Garcia Referrals: Lidia Garcia, DO [Primary Care Provider] - Disposition Disposition: Acute Care Hospital [facility]
[2022-10-23] MEDS: Morphine 4 MG/ML Syringe IV (20:56)
[2022-10-23] MEDS: 0.9% Normal Saline 1,000 ML 1000 ML IV (20:57)
[2022-10-23 21:03] VITALS: BP 152/87; PULSE 78; RESP 16; O2SAT 97
[2022-10-23 21:05] LABS: Mucous, Urine 0 SEEN /hpf (<or=2+); Red Blood Cells-Urine 0 SEEN /hpf (0-5); Squamous Epithelial Cells - UA 0 SEEN /hpf (0-5)
[2022-10-23 21:07] LABS: Color, Urine Yellow (Yellow); Glucose, Dipstick Normal (Normal); Ketone-Dipstick 15 mg/dl (Negative); Leukocyte Esterase-Dipstick 100 /ul (Negative); Nitrite-Dipstick Negative (Negative); Occult Blood-Urine 25 /ul (Negative); Protein-Dipstick 15 mg/dl (Negative); Specific Gravity, Urine 1.025 (1.002-1.030); Urine Bilirubin Dipstick Negative (Negative); Urine Clarity Sl. Cloudy (Clear); Urine Urobilinogen Normal (Normal)
[2022-10-23 21:13] LABS: Bacteria 3+ /hpf (None Seen); White Blood Cells 25-50 SEEN /hpf (0-5)
[2022-10-23 21:23] LABS: Absolute Lymphocyte Count 1.09 X10^3/uL (0.83-4.51); Absolute Neutrophil Count 5.6 X10^3/uL (2.0-7.7); Basophil# 0.05 X10^3/uL; Basophil% 0.6 % (0-1); Eosinophil# 0.25 X10^3/uL; Eosinophils% 3.1 % (0-5); Hematocrit 48.1 % (40-54); Hemoglobin 15.7 g/dL (13.0-16.5); Lymphocyte # 1.09 X10^3/ul (0.83-4.51); Lymphocyte % 13.6 % (19-41); Mean Corp Hgb Conc 32.6 g/dL (32-36); Mean Corpuscular Hgb 30.4 pg (27.0-32.0); Mean Platelet Vol. 10.6 fl (6.2-12.0); Monocyte# 0.98 X10^3/uL; Monocyte% 12.2 % (0-10); NRBC Flagged by Analyzer 0 % (0-5); Neutrophil % 69.8 % (47-70); POSITIVE COUNT YES; Platelet Count 146 K/mm3 (150-450); RBC Distribution Width CV 14.1 % (11.6-14.6); RBC Distribution Width SD 48.7 fl (35.1-43.9); Red Blood Count 5.17 M/mm3 (4.6-6.2)
[2022-10-23 21:24] LABS: Differential Indicated SCAN CRITERIA MET
[2022-10-23 21:26] LABS: ALB/GLOB Ratio 0.7 RATIO (0.9-2.4); AST(SGOT) 36 U/L (15-37); Alanine Aminotransfer ALT/SGPT 22 U/L (16-61); Albumin, Serum 2.7 g/dL (3.2-5.0); Alkaline Phosphatase 75 U/L (45-117); Anion Gap 7 (5-15); BUN 22 mg/dL (7-18); BUN/Creat Ratio 24.1 RATIO (10-20); Calcium,Total 9.1 mg/dL (8.5-10.1); Chloride 110 mmol/L (98-107); Creatinine, Serum 0.91 mg/dL (0.70-1.30); EST Glomerular Filtration Rate 84 mL/min (>60); Est Glom Filt Rate - Afr Amer 101 mL/min (>60); Estimated Creatinine Clearance 54.31 ml/min; Globulin 3.8 g/dL (2.2-4.2); Glucose 104 mg/dL (74-106); Potassium 5.1 mmol/L (3.5-5.1); Protein, Total 6.5 g/dL (6.4-8.2); Sodium Level 137 mmol/L (136-145); Troponin-I HS 6 pg/mL (3.0-78.0)
--- NOTE | 2022-10-23 21:37 | RAD_ITS ---
STUDY: X-RAY CHEST REASON FOR EXAM: Male, 87 years old. weakness, chest pain TECHNIQUE: Single AP portable view of the chest. COMPARISON: May 29, 2022. FINDINGS: Lungs are hyperexpanded. There is chronic interstitial changes without acute infiltrate or mass. There is no demonstrated pleural abnormality. Normal size heart. Normal mediastinum and faviola. Normal visualized pulmonary arteries. Normal visualized aortic arch and descending thoracic aorta. No osseous changes. Again seen is mild scoliosis of the thoracic spine and degenerative changes of bilateral shoulders. There is no demonstrated abnormality of the visualized soft tissue structures of the upper abdomen. RAD/Chest 1 View (Portable) IMPRESSION: Question COPD. There is no acute abnormality or major interval change. Electronically Signed: Norbert Galindo DO at 21:54 EST ,
[2022-10-23 21:54] LABS: Differential Comment SCANNED
[2022-10-23] MEDS: Ceftriaxone 1 GM/50 ML BAG IV (22:36)
--- NOTE | 2022-10-23 22:44 | PCM.HP.STD ---
HPI - General General Date of Admission: 10/23/22 Date of Service: 10/23/22 Chief Complaint: Falls HPI Narrative DONYA GRAF, is a 87 M with a significant history of emphysema; CAD; and right hip surgery who presents to the emergency department with fall. Reportedly he landed on his right side. His fall was about 3 hours before presentation. Also reportedly about 3 days before presentation he had another fall. He complains of intermittent dysuria and increased urinary frequency. He reports constipation with last day of bowel movement as the day before presentation. [facility] Medical History Bony metastasis Coronary artery disease Depression Emphysema lung ETOH abuse Former smoker Former smoker Generalized weakness Osteoarthritis Scarlet fever Suicidal ideation Home Medications ibuprofen 600 mg tablet 600 mg PO Q6H PRN fever or pain #20 tabs 06/22/22 [Rx Last Taken Unknown] lorazepam 0.5 mg tablet 5 mg PO DAILY PRN PRN Pain 10/23/22 [History Last Taken Unknown] oxycodone 5 mg tablet 2.5 mg PO Q4H PRN PRN Pain 10/23/22 [History Last Taken Unknown] Allergy/AdvReac Type Severity Reaction Status Date / Time venom-honey bee Allergy Anaphylaxis Verified 06/21/22 13:02 [bee venom (honey bee)] Family History Other Liver cancer Parkinson disease Surgical History History of hip surgery Social History household members: none Smoking Status: Former smoker substance use type: does not use ROS ROS Narrative Pertinent positives and pertinent negatives as noted in HPI. All other systems were reviewed and are negative Vital Signs Vital Signs Vital Signs: 10/23/22 19:04 10/23/22 19:08 10/23/22 21:03 Temperature 98 F Temperature Source Oral Pulse Rate 88 78 Respiratory Rate 16 16 Respiratory Effort Normal Respiratory Depth Normal Respiratory Pattern Normal Blood Pressure 146/97 H 152/87 H Blood Pressure Mean 113 108 Pulse Ox 96 97 Oxygen Delivery Method Room Air Room Air Room Air Weight Weight: 65.9 kg Body Mass Index (BMI) 19.7 Physical Exam Narrative Physical exam: General: Well-nourished, well-developed. Head: Normocephalic, atraumatic, no tenderness Eyes: Vision is grossly intact. EOMI ENT, no trauma, moist mucous membranes, no rhinorrhea Neck: Nontender, full range of motion CVS: Regular rate and rhythm. S1-S2 present. No murmur, gallop or rub. Respiratory : clear to auscultation bilaterally, chest wall nontender, no wheezing Abdomen: Soft, nontender, nondistended, normal bowel sounds, no masses : Deferred Back: Nontender, no CVA tenderness. Extremities:No edema or cyanosis Psychiatry: Not depressed. Not anxious Results Lab / Micro Data Result Diagrams: 10/23/22 20:55 10/23/22 20:55 Labs: Laboratory Results - last 24 hr 10/23/22 20:55: WBC 8.0, RBC 5.17, Hgb 15.7, Hct 48.1, MCV 93.0, MCH 30.4, MCHC 32.6, RDW Std Deviation 48.7 H, RDW Coeff of Susan 14.1, Plt Count 146 L, MPV 10.6, Immature Gran % (Auto) 0.700, Neut % (Auto) 69.8, Lymph % (Auto) 13.6 L, [place] % (Auto) 12.2 H, Eos % (Auto) 3.1, Baso % (Auto) 0.6, Absolute Neuts (auto) 5.6, Absolute Lymphs (auto) 1.09, Nucleated RBC % 0, Differential Comment SCANNED 10/23/22 20:55: Sodium 137, Potassium 5.1, Chloride 110 H, Carbon Dioxide 20.0 L, Anion Gap 7, BUN 22 H, Creatinine 0.91, Estim Creat Clear Calc 54.31, Est GFR (MDRD) Af Amer 101, Est GFR (MDRD) Non-Af 84, BUN/Creatinine Ratio 24.1 H, Glucose 104, Calcium 9.1, Total Bilirubin 2.20 H, AST 36, ALT 22, Alkaline Phosphatase 75, Troponin I High Sens 6, Total Protein 6.5, Albumin 2.7 L, Globulin 3.8, Albumin/Globulin Ratio 0.7 L 10/23/22 20:55: Urine Color Yellow, Urine Clarity Sl. Cloudy, Urine pH 6.0, Ur Specific [place] 1.025, Urine Protein 15 H, Urine Glucose (UA) Normal, Urine Ketones 15 H, Urine Occult Blood 25 H, Urine Nitrite Negative, Urine Bilirubin Negative, Urine Urobilinogen Normal, Ur Leukocyte Esterase 100 H, Urine RBC 0 SEEN, Urine WBC 25-50 SEEN, Ur Squamous Epith Cells 0 SEEN, Urine Bacteria 3+, Urine Mucus 0 SEEN Radiology Impression Hip/Pelvis X-Ray 10/23/22 19:50 IMPRESSION: 1. No acute fracture or dislocation. 2. Healed right intertrochanteric fracture with internal fixation. 3. Question ileus. Electronically Signed: Norbert Galindo DO at 20:10 EST Reading Location ID and State: [employer] / [place] Tel [phone], Service support , Abdomen/Pelvis CT 10/23/22 20:31 IMPRESSION: 1. No evidence of femoral or pelvic fracture. 2. Findings suggestive of ileus. There is no evidence of obstruction. 3. Left renal cysts with mild hydronephrosis. There is no ureterectasis. 4. Mildly enlarged prostate. 5. Atherosclerotic changes of the abdominal aorta and iliac arteries. Electronically Signed: Norbert Galindo DO at 22:04 EST Reading Location ID and State: [employer] [facility] Tel [phone], Service support , Chest X-Ray 10/23/22 21:37 IMPRESSION: Question COPD. There is no acute abnormality or major interval change. Electronically Signed: Norbert Galindo at 21:54 EST Reading Location ID and State: [employer] [facility] Tel [phone], Service support , Assessment & Plan Assessment/Plan (1) Fall: (2) Debility: (3) Ileus: PLAN: Plan Falls with debility Hip and pelvis x-ray was visualized and independently interpreted. I agree with radiologist interpretation of healed right intertrochanteric fracture with internal fixation. Per radiologist hip and pelvis x-ray with questionable ileus. PT and OT to work with patient for strengthening and balance training. Case management consult. Ileus Patient reports some indigestion without any thiago abdominal pain. Will keep n.p.o. except meds at this time. UTI/mild left hydronephrosis Urinalysis is abnormal. Started on Rocephin at the emergency department and continued. CBC on presentation showed white count of 8.0. Trend. Hyperbilirubinemia Total bili of 2.2 on presentation. With history of elevated bili. Trend CMP. DVT prophylaxis: Subcutaneous Lovenox ordered. Charges/Coding Visit Charges Inpatient E&M: 44639 Init Hosp L3
[2022-10-23 23:13] VITALS: BP 143/78; PULSE 74; RESP 16; TEMP 36.6; O2SAT 96
[2022-10-24] VITALS (10 sets, daily range): BP systolic 88–158; BP diastolic 50–82; PULSE 62–86; RESP 16–18; TEMP 36.7–38.1; O2SAT 94–98; BMI 17.9
[2022-10-24] MEDS: MELATONIN 3 MG TABLET PO ×2 (00:30→22:52)
[2022-10-24] MEDS: oxyCODONE 5 MG Tablet PO ×2 (00:30→22:52)
[2022-10-24] MEDS: Ondansetron 4 MG/2 ML Vial IV (00:31)
[2022-10-24] MEDS: 0.9% Saline Lock 10 ML Syringe IV ×2 (00:31→06:46)
[2022-10-24] MEDS: 0.9% Normal Saline 1,000 ML 999 ML IV (06:45)
[2022-10-24 06:58] LABS: Absolute Lymphocyte Count 1.26 X10^3/uL (0.83-4.51); Absolute Neutrophil Count 3.5 X10^3/uL (2.0-7.7); Basophil# 0.03 X10^3/uL; Basophil% 0.5 % (0-1); Eosinophil# 0.24 X10^3/uL; Eosinophils% 3.9 % (0-5); Hematocrit 40.4 % (40-54); Hemoglobin 13.1 g/dL (13.0-16.5); Lymphocyte # 1.26 X10^3/ul (0.83-4.51); Lymphocyte % 20.3 % (19-41); Mean Corp Hgb Conc 32.4 g/dL (32-36); Mean Corpuscular Volume 92.7 fL (80-94); Mean Platelet Vol. 9.7 fl (6.2-12.0); Monocyte# 1.14 X10^3/uL; Monocyte% 18.4 % (0-10); NRBC Flagged by Analyzer 0 % (0-5); Neutrophil # 3.52 X10^3/uL (2.7-7.7); Neutrophil % 56.6 % (47-70); Platelet Count 165 K/mm3 (150-450); RBC Distribution Width CV 13.9 % (11.6-14.6); Red Blood Count 4.36 M/mm3 (4.6-6.2); White Blood Count 6.2 K/mm3 (4.4-11.0)
[2022-10-24 07:22] LABS: ALB/GLOB Ratio 0.8 RATIO (0.9-2.4); AST(SGOT) 10 U/L (15-37); Alanine Aminotransfer ALT/SGPT 17 U/L (16-61); Albumin, Serum 2.4 g/dL (3.2-5.0); Alkaline Phosphatase 61 U/L (45-117); Anion Gap 7 (5-15); BUN 23 mg/dL (7-18); BUN/Creat Ratio 25.6 RATIO (10-20); Calcium,Total 8.3 mg/dL (8.5-10.1); Chloride 110 mmol/L (98-107); EST Glomerular Filtration Rate 85 mL/min (>60); Est Glom Filt Rate - Afr Amer 103 mL/min (>60); Estimated Creatinine Clearance 50.08 ml/min; Glucose 94 mg/dL (74-106); Potassium 4.7 mmol/L (3.5-5.1); Protein, Total 5.4 g/dL (6.4-8.2); Sodium Level 140 mmol/L (136-145)
--- NOTE | 2022-10-24 07:28 | PCM.PN.HOSP ---
Subjective Subjective Seen and examined. Follow-up for ileus. I was told by nurse that patient is refusing lab draw, medication. Patient is agitated and grumpy. Objective Data Objective Data Vital Signs: Vital Signs Temp Pulse Resp BP Pulse Ox O2 Del Method 98.3 F 86 16 88/50 L 94 Room Air 10/24/22 06:00 10/24/22 06:00 10/24/22 06:00 10/24/22 06:00 10/24/22 06:00 10/24/22 06:00 Oxygen Delivery Method Room Air Weight: 132 lb 7.965 oz Body Mass Index (BMI) 17.9 Intake & Output: Intake and Output for Last 24 Hours 10/22/22 10/23/22 10/24/22 23:59 23:59 23:59 Intake Total 1050 / 1050 Output Total 200 / 200 Balance 1050 / 1050 -200 / -200 Lab / Micro Data Result Diagrams: 10/24/22 06:30 10/24/22 06:30 Labs: Laboratory Results - last 24 hr 10/23/22 20:55: WBC 8.0, RBC 5.17, Hgb 15.7, Hct 48.1, MCV 93.0, MCH 30.4, MCHC 32.6, RDW Std Deviation 48.7 H, RDW Coeff of Susan 14.1, Plt Count 146 L, MPV 10.6, Immature Gran % (Auto) 0.700, Neut % (Auto) 69.8, Lymph % (Auto) 13.6 L, [place] % (Auto) 12.2 H, Eos % (Auto) 3.1, Baso % (Auto) 0.6, Absolute Neuts (auto) 5.6, Absolute Lymphs (auto) 1.09, Nucleated RBC % 0, Differential Comment SCANNED 10/23/22 20:55: Sodium 137, Potassium 5.1, Chloride 110 H, Carbon Dioxide 20.0 L, Anion Gap 7, BUN 22 H, Creatinine 0.91, Estim Creat Clear Calc 54.31, Est GFR (MDRD) Af Amer 101, Est GFR (MDRD) Non-Af 84, BUN/Creatinine Ratio 24.1 H, Glucose 104, Calcium 9.1, Total Bilirubin 2.20 H, AST 36, ALT 22, Alkaline Phosphatase 75, Troponin I High Sens 6, Total Protein 6.5, Albumin 2.7 L, Globulin 3.8, Albumin/Globulin Ratio 0.7 L 10/23/22 20:55: Urine Color Yellow, Urine Clarity Sl. Cloudy, Urine pH 6.0, Ur Specific [place] 1.025, Urine Protein 15 H, Urine Glucose (UA) Normal, Urine Ketones 15 H, Urine Occult Blood 25 H, Urine Nitrite Negative, Urine Bilirubin Negative, Urine Urobilinogen Normal, Ur Leukocyte Esterase 100 H, Urine RBC 0 SEEN, Urine WBC 25-50 SEEN, Ur Squamous Epith Cells 0 SEEN, Urine Bacteria 3+, Urine Mucus 0 SEEN 10/24/22 06:30: WBC 6.2, RBC 4.36 L, Hgb 13.1, Hct 40.4, MCV 92.7, MCH 30.0, MCHC 32.4, RDW Std Deviation 47.0 H, RDW Coeff of Susan 13.9, Plt Count 165, MPV 9.7, Immature Gran % (Auto) 0.300, Neut % (Auto) 56.6, Lymph % (Auto) 20.3, [place] % (Auto) 18.4 H, Eos % (Auto) 3.9, Baso % (Auto) 0.5, Absolute Neuts (auto) 3.5, Absolute Lymphs (auto) 1.26, Nucleated RBC % 0 10/24/22 06:30: Sodium 140, Potassium 4.7, Chloride 110 H, Carbon Dioxide 23.0, Anion Gap 7, BUN 23 H, Creatinine 0.90, Estim Creat Clear Calc 50.08, Est GFR (MDRD) Af Amer 103, Est GFR (MDRD) Non-Af 85, BUN/Creatinine Ratio 25.6 H, Glucose 94, Calcium 8.3 L, Total Bilirubin 1.10 H, AST 10 L, ALT 17, Alkaline Phosphatase 61, Total Protein 5.4 L, Albumin 2.4 L, Globulin 3.0, Albumin/Globulin Ratio 0.8 L Radiography Diagnostic Testing: Radiology Impression Hip/Pelvis X-Ray 10/23/22 19:50 IMPRESSION: 1. No acute fracture or dislocation. 2. Healed right intertrochanteric fracture with internal fixation. 3. Question ileus. Electronically Signed: Norbert Galindo DO at 20:10 EST , Abdomen/Pelvis CT 10/23/22 20:31 IMPRESSION: 1. No evidence of femoral or pelvic fracture. 2. Findings suggestive of ileus. There is no evidence of obstruction. 3. Left renal cysts with mild hydronephrosis. There is no ureterectasis. 4. Mildly enlarged prostate. 5. Atherosclerotic changes of the abdominal aorta and iliac arteries. Electronically Signed: Norbert Galindo, at 22:04 EST Reading Location ID and State: [facility] / [place] Tel [phone], Service support , Chest X-Ray 10/23/22 21:37 IMPRESSION: Question COPD. There is no acute abnormality or major interval change. Electronically Signed: Norbert GalindoDO at 21:54 EST Reading Location ID and State: [address] [place] [address] Tel [phone], Service support , Rhythm Strip Rhythm Strip: Sinus Rhythm Rate: 75 Ectopy: None Physical Exam Narrative ED squad report, ED physician note and H&P reviewed. Patient was brought in by EMS for fall with right hip pain. EMS found him lying on the left side and complained of severe pain on movement. Assessment & Plan Assessment/Plan (1) Fall: (2) Debility: (3) Ileus: PLAN: Plan 87-year-old male was admitted with 2 fall in 24 hours. EMS found him lying on the left side, complaining of severe pain localized 8?9 out of 10, worse on moving. Falls with debility: Patient fell and landed on his right side, about 3 hours prior to presentation to ED. Patient had x-ray of hip and pelvis x-ray and CT scan of abdomen which reported no evidence of femoral or pelvic fracture. I individually reviewed the imaging and does not show femoral pelvic fracture. PT and OT ordered. Hypotension: Blood pressure was recorded 88/50 twice around 6 AM. Patient was given 1 L IV bolus normal saline. Repeat blood pressure is still low 95/50. Temperature is 100.5. 1 L Ringer lactate ordered but patient refused and later on blood pressure improved to 122/76. IV fluid normal saline 100 mill per hour. Patient is agitated, grumpy and refusing to answer questions. He said he had mild burning micturition but refusing to answer questions regarding HPI or review of systems. Lactic acid and other labs ordered. In ED patient's blood pressure was in normal range 146/97-152/87 as per age. Later on blood pressure recovered. Small and large bowel ileus due to feces: Patient has chronic constipation and last bowel movement a day before admission. CT abdomen individually reviewed and shows diffusely gastric and small bowel loops without obstruction. Feces present throughout the colon without mass or obstruction. Patient reports some indigestion without any thiago abdominal pain. I talked to the patient's daughter on the phone. We agreed upon IV fluid. Clear liquid and stool softeners. Senna S 2 tablet twice daily. This might need escalation after hydration if colon is not cleared. UTI/mild left hydronephrosis: Patient complain of dysuria increased frequency. Shows simple cyst extending from lower pole of left kidney Urinalysis is abnormal, UA WBC 25-50 cells, LE 100, 3+ bacteria negative nitrite.. Started on Rocephin at the emergency department and continued. Morning CBC on presentation showed white count of 8.0. Trend. Hyperbilirubinemia Total bili of 2.2 on presentation. With history of elevated bili. Monitor liver chemistry. DVT prophylaxis: Subcutaneous Lovenox ordered. I talked to patient's daughter on the phone and explained the clinical condition. I also said that patient is refusing medication IV fluid and lab draw and she said she will try to convince the patient and she felt sorry. Charges/Coding Visit Charges Inpatient E&M: 27966 Subs Hosp L2
--- NOTE | 2022-10-24 09:08 | CPS ---
PATIENT REFUSED. PATIENTS NURSE AWARE.
[2022-10-24 09:09] LABS: CPK Total, Creatine Kinase 23 U/L (39-308)
--- NOTE | 2022-10-24 09:09 | CPS ---
PATIENT REFUSED CONT. POX. PATIENTS NURSE AWARE.
[2022-10-24 09:16] LABS: International Normalized Ratio 1.1; Prothrombin Time (Protime)PT. 14.2 SECONDS (11.7-14.9)
[2022-10-24 09:17] LABS: Partial Thromboplast Time 30.7 Seconds (24.1-36.2)
--- NOTE | 2022-10-24 09:36 | NURSING ---
This RN took vital signs this morning. Found that pt had a temperature of 100.5. Offered pt motrin and tylenol, pt refused. Blood pressure also low (92/50 L arm, manual). Refusing labs and flu swab. Dr Christianson aware, tried to call pt's daughter to explain situation and daughter did not answer. Will continue to monitor.
--- NOTE | 2022-10-24 10:37 | CASEMGMT ---
Addendum entered by Mile Rocha 10/24/22 13:21: ÁNGEL WOODWARD made aware pt dtr here to visit. ÁNGEL WOODWARD in to pt room, discussed dc planning. Pt fixated that he cannot eat or drink and states he will not do therapy until he has food or drink. He states he is weak from this. Declines to get oob. Dtr states to pt that she cannot take him home in this state and that pt needs to participate in therapy. Attempted to explain an ileus to pt. Pt states he does not understand. Made him aware that this ÁNGEL WOODWARD will get his bedside nurse to anser further questions, pt declined. Addendum entered by Mile Rocha 10/24/22 11:28: TC to pt dtr Frantz. She states she does not feel pt is safe to come home. She states he will say he will do HHC and then get home and refuse it. She asks what will happen if she doesn't allow him to come back home. Made her aware that it has to be the patient's choice to go to a SNF if pt is of sound mind. She is aware that pt would need to have a therapy evaluation as his insurance requires precertification. She is aware pt refused to work with therapy today. Asked if she would be coming in to visit patient and if they could have a discussion regarding this. She states she will be in later today. Asked her to also ask for the CM when she arrives. Original Note: ÁNGEL WOODWARD Assessment: Face to Face with pt for initial transition planning/care coordination assessment. ÁNGEL WOODWARD introduced self and role at [facility], pt voices understanding and consents to assessment. Pt is A/O x4 and answers all questions appropriately at this time. Care providers, pharmacy, and demographics verified/updated. Admitting Dx: multiple falls, UTI, ileus PCP:Radha Specialists:Pt denies. Preferred Pharmacy: [facility] Insurance: [place] [employer] Prescription Benefit: yes LW/HPOA: Pt has LW/DPOA on file at [facility]. His DPOA is his Jesus Landa. LNOK: Frantz Emelia, dtr Living Arrangements: Pt lives in an addition to his dtr's house. States he only has a step to go into their living quarters. His son in law and 3 grandchildren also live in the home. Pt reports his dtr assists him with ADL's and denies concerns at home. Pt states his is at [facility]. Transportation: Pt does not drive. Family provides transportation. DME/HHC/SNF: Pt has a FWW and grab bars in the home. Pt denies hx of HHC but has been to [facility], [facility] and [facility]. Pt states no concerns with going home at time of dc. He states receiving therapy in a facility is a waste of time and I'm not doing that. Discussed HHC as pt has been falling at home. He states he has been just tripping. He declined to work with therapy in the hospital but would be agreeable to therapy coming to his home. Pt states work with my dtr on that. He states he would be agreeable to any agency she chooses. Pt states no further concerns/needs. CM to follow. Advised pt to ask CM if any further question/concerns/needs arise, voices understanding. Pt Goal: Home with HHC Plan: Home with HHC, will call dtr to discuss.
[2022-10-24] MEDS: 0.9% Normal Saline 1,000 ML 100 ML IV ×2 (12:02→22:49)
--- NOTE | 2022-10-24 13:40 | CASEMGMT ---
Social Work? SW in to meet with pt following update from ÁNGEL WOODWARD that pt daughter not willing to take pt home without pt going to SNF to build strength. Pt is refusing to participate in therapy. SW discussed options with pt and daughter regarding placement. Pt stated could not hear SW although pt was able to hear daughter fine. SW was using similar tone and volume as pt daughter during conversation, and increased volume, although pt stated could still not hear. A list of SNF providers including quality and resource use data and consistent with the patient?s preferred geographic region, medical needs, and insurance network were provided from the [employer] Guide. Pt's daughter briefly reviewed list but asked if would be available to discuss pt's diet. Daughter explained pt is upset and refusing to participate in therapy due to being hungry. SW notified Dr. Christianson of request to meet with pts daughter via backline. ? PLAN: TBD? FANY Pena?
--- NOTE | 2022-10-24 14:20 | RAD_ITS ---
STUDY: X-RAY - ABDOMEN/PELVIS REASON FOR EXAM: Male, 87 years old. Colonic ileus TECHNIQUE: 3 AP films COMPARISON: None. FINDINGS: Normal visualized lung bases. There is an abundance of fecal material throughout the colon. There is no demonstrated free abdominal air. There are nondistended air-filled loops of small bowel suggesting ileus The visualized liver, spleen and kidneys are grossly normal in size and morphology. Bladder is filled with contrast. Bony structures show degenerative change. Surgical hardware in the right femur free of complication RAD/Abd Inc Decub and/or Erect IMPRESSION: Small bowel ileus likely due to retained stool throughout the colon Electronically Signed: Colt Velazquez MD at 16:08 EST ,
[2022-10-24] MEDS: Senna/Docusate Sodium 1 Tablet 2 TABLET PO ×2 (16:32→22:51)
[2022-10-24] MEDS: Ceftriaxone 1 GM/50 ML BAG IV (22:49)
[2022-10-25 05:30] VITALS: BP 92/49; PULSE 57; RESP 18; TEMP 37; O2SAT 95
--- NOTE | 2022-10-25 07:50 | CPS ---
Pt refused Incentive Spirometer.
[2022-10-25 07:55] VITALS: O2SAT 94
[2022-10-25] MEDS: oxyCODONE 5 MG Tablet PO ×2 (09:00→20:03)
[2022-10-25] MEDS: 0.9% Normal Saline 1,000 ML 100 ML IV (09:01)
--- NOTE | 2022-10-25 10:08 | PN.HOSP_ITS ---
Subjective Subjective Follow-up for bilateral hip pain, debility and small bowel ileus Patient is still not participating in PT and OT. Objective Data Objective Data Vital Signs: Vital Signs Temp Pulse Resp BP Pulse Ox O2 Del Method 98.6 F 57 L 18 92/49 L 94 Room Air 10/25/22 05:30 10/25/22 05:30 10/25/22 05:30 10/25/22 05:30 10/25/22 07:55 10/25/22 09:06 Oxygen Delivery Method Room Air Weight: 132 lb 7.965 oz Body Mass Index (BMI) 17.9 Intake & Output: Intake and Output for Last 24 Hours 10/23/22 10/24/22 10/25/22 23:59 23:59 23:59 Intake Total 1050 / 1050 2320.00 / 2320.00 1000 / 1000 Output Total 550 / 750 350 / 350 Balance 1050 / 1050 1770.00 / 1570.00 650 / 650 Medical Nutrition Assessment Dietitian: Malnutrition Criteria Met Start: 10/24/22 11:19 Freq: Status: Active Protocol: Document 10/24/22 11:19 RMA (Rec: 10/24/22 11:19 RMA [id number]) Nutrition Malnutrition Evidence of Malnutrition Exists Yes Malnutrition (severe): Chronic,Social/Behavioral/ Environmental Evidenced By Suboptimal Energy Intake ( Severe),Weight Loss (Severe), Physical Changes (Moderate) Intake Problem Inadequate Oral Intake Etiology related to altered GI function /ileus Signs/Symptoms as evidenced by NPO Status Active Problem Clinical Problem Chronic Disease or Condition Related Malnutrition Etiology Severe protein-calorie malnutrition in the context of chronic disease/debility related to inadequate oral intake Signs/Symptoms as evidenced by ~12% wt loss x 6-12 months, ~4-5% wt loss x 4 months, BMI 18, muscle/fat wasting in the clavicle, orbital, temporal region, arms , legs and poor oral intake x past 3-6 months meeting less than 50% estimated nutrition needs; currently NPO Status Active Problem Recommendation Dietitian Recommendations/Changes Recommend advance diet as medically able to Regular. Add 120 ml ensure plus high protein 4 times per day w/ medpass as diet advanced from NPO. Additional ONS once PO established with meals. Consider nutrition support as needed for repletion of energy /protein. Lab / Micro Data Result Diagrams: 10/24/22 06:30 10/24/22 06:30 Micro: Microbiology 10/23/22 20:55 Urine, Clean Catch Urine Culture - Preliminary ESBL Escherichia coli Radiography Diagnostic Testing: Radiology Impression Abdomen X-Ray 10/24/22 14:20 IMPRESSION: Small bowel ileus likely due to retained stool throughout the colon Electronically Signed: Colt Velazquez MD at 16:08 EST Reading Location ID and State: [facility] / [place] , Service support , Rhythm Strip Rhythm Strip: Sinus Rhythm Rate: 75 Ectopy: None Physical Exam Narrative Patient did not had bowel movement since yesterday. Patient passing intermittently flatus. No fever. Denies abdominal pain. Bilateral hip pain, right more than left. Patient cannot lift leg and cannot keep for 5 seconds. Physical exam General: Alert, Oriented x3, Cooperative HEENT: Atraumatic, PERRLA, EOMI, Normocephalic Oral: No Gingival or Mucosal Lesions/ Ulcerations Neck: Supple, No JVD, Negative Carotid Bruits Lungs: Air entry diminished in bilateral lung bases. No crepitation/rhonchi Cardiovascular: Regular rate, Regular Rhythm, Normal S1, Normal S2, No murmurs Abdomen: Bowel Sounds Present, Soft, Non Tender, Non-Distended : No renal angle tenderness. No suprapubic tenderness. Extremities: No edema, Capillary Refill Less than 3 Seconds Skin: No rashes, No breakdown Musculoskeletal: right hip fracture status post remote ORIF surgery. ROM restricted over right and left hip right more than left. No point tenderness over the right or left hip. Neurological: Cranial nerves II-XII grossly intact, DTR 2+/4 and Symmetrical, Psych/Mental Status: Flat affect. Grumpy look. Assessment & Plan Assessment/Plan (1) Fall: (2) Debility: (3) Ileus: PLAN: Plan 87-year-old male was admitted with 2 fall in 24 hours. EMS found him lying on the left side, complaining of severe pain localized 8?9 out of 10, worse on moving. Falls with debility: Patient fell and landed on his right side, about 3 hours prior to presentation to ED. Patient had x-ray of hip and pelvis x-ray and CT scan of abdomen which reported no evidence of femoral or pelvic fracture. I individually reviewed the imaging and does not show femoral pelvic fracture. PT and OT ordered. 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 Patient is not participating in PT and OT evaluation therefore further determination cannot be made. Hypotension: Blood pressure was recorded 88/50 twice around 6 AM. Patient was given 1 L IV bolus normal saline. Repeat blood pressure is still low 95/50. Temperature is 100.5. 1 L Ringer lactate ordered but patient refused and later on blood pressure improved to 122/76. IV fluid normal saline 100 mill per hour. Patient is agitated, grumpy and refusing to answer questions. He said he had mild burning micturition but refusing to answer questions regarding HPI or review of systems. Lactic acid and other labs ordered. In ED patient's blood pressure was in normal range 146/97-152/87 as per age. Later on blood pressure recovered. 10/25: Hypotension resolved. SBP more than 90 mmHg. Patient not having any symptoms of hypotension and dizziness lightheadedness chest pain or shortness of breath. Small and large bowel ileus due to feces: Patient has chronic constipation and last bowel movement a day before admission. CT abdomen individually reviewed a nd shows diffusely gastric and small bowel loops without obstruction. Feces present throughout the colon without mass or obstruction. Patient reports some indigestion without any thiago abdominal pain. I talked to the patient's daughter on the phone. We agreed upon IV fluid. Clear liquid and stool softeners. Senna S 2 tablet twice daily. This might need escalation after hydration if colon is not cleared. 10/25: Patient was examined in the presence of nurse. Dulcolax 10 mg oral and soapsuds enema. Full liquid diet. UTI/mild left hydronephrosis: Patient complain of dysuria increased frequency. Shows simple cyst extending from lower pole of left kidney Urinalysis is abnormal, UA WBC 25-50 cells, LE 100, 3+ bacteria negative nitrite.. Started on Rocephin at the emergency department and continued. Morning CBC on presentation showed white count of 8.0. Trend. 10/25: Discussed with ID Dr. Anderson. IV meropenem started along with repeat UA and urine culture. Ceftriaxone discontinued. Most likely Bactrim DS at the time of discharge with a total of 7 days of antibiotic. Hyperbilirubinemia Total bili of 2.2 on presentation. With history of elevated bili. Monitor liver chemistry. DVT prophylaxis: Subcutaneous Lovenox ordered. Total time of the visit including total time spent in counseling or coordination of care, (more than 50% of the total time, spent in obtaining medical information from nurses and other ancillary care providers,explaining to the patient about labs, imaging, diagnosis and management of active complex medical conditions), discussion with ID, review of labs and imaging is 40 minutes. Charges/Coding Visit Charges Inpatient E&M: 84044 Subs Hosp L3
[2022-10-25] MEDS: Bisacodyl 5 MG Tablet 10 MG PO (10:29)
[2022-10-25 10:53] VITALS: BP 127/68; PULSE 58; RESP 18; TEMP 36.8; O2SAT 97
--- NOTE | 2022-10-25 12:28 | CASEMGMT ---
ÁNGEL WOODWARD made aware pt again declined therapy today. ÁNGEL WOODWARD in to pt room, pt lying in bed in no distress. Asked pt if he still plans on going home, pt states or else out. When asked what he meant, pt states that he will go to wherever the creator takes him. Asked pt if he would participate with therapy today as he has been allowed fluids. Pt states he wants to rest today. Pt began speaking about his and reports that he is depressed and doesn't enjoy things he used to. States he has tried medication prescribed for this but it did not help. Asked pt if he would like to speak to SW regarding this. Pt ambivalent. Updated SW.
--- NOTE | 2022-10-25 14:25 | CASEMGMT ---
Social Work SW informed by ÁNGEL Treadwell that pt was discussing feelings of depression. SW in to speak to pt regarding mental health. Pt upset with SW entering room. SW attempted to speak to pt about depression and pt stated its from old age then stated I don't feel like talking about my problems to a woman. I really just don't want to chit chat right now and I would like you to leave. SW agreeable and left the room. SW contacted Brisa Ray. Informed of pt struggles at this time and Helder agreeable to meeting with pt. Pt has not been cooperative with medical and mental health interventions at this time. Perhaps spiritual assistance will be beneficial. Serena Joseph, FANY
[2022-10-25 14:41] LABS: Bacteria 0 SEEN /hpf (None Seen); Mucous, Urine 0 SEEN /hpf (<or=2+); Red Blood Cells-Urine 0 SEEN /hpf (0-5); Squamous Epithelial Cells - UA 0 SEEN /hpf (0-5)
[2022-10-25 14:45] LABS: Color, Urine Yellow (Yellow); Glucose, Dipstick Normal (Normal); Ketone-Dipstick 5 mg/dl (Negative); Leukocyte Esterase-Dipstick 100 /ul (Negative); Nitrite-Dipstick Negative (Negative); Occult Blood-Urine Negative /ul (Negative); Protein-Dipstick Negative (Negative); Urine Bilirubin Dipstick Negative (Negative); Urine Clarity Clear (Clear); Urine Urobilinogen Normal (Normal)
[2022-10-25 14:53] LABS: White Blood Cells 10-25 SEEN /hpf (0-5)
[2022-10-25 15:11] VITALS: BP 112/69; PULSE 60; RESP 18; TEMP 36.4; O2SAT 100
[2022-10-25] MEDS: Polyethylene Glycol 3350 17 GM PACKET 34 GM PO (16:37)
[2022-10-25 20:05] VITALS: BP 126/77; PULSE 63; RESP 16; TEMP 36.3; O2SAT 99
[2022-10-26] VITALS (11 sets, daily range): BP systolic 128–156; BP diastolic 70–99; PULSE 63–73; RESP 18–20; TEMP 36.6–36.9; O2SAT 95–97
--- NOTE | 2022-10-26 07:35 | CON.PCM.UR_ITS ---
Assessment & Plan Assessment/Plan (1) Acute UTI: PLAN: treat UTI, v mild hydro, no intervention needed, call with questions. (2) Ileus: HPI Consult Data Date of Consult: 10/26/22 HPI Narrative Reason for Consultation: hydro. HPI Narrative: DONYA GRAF, is a 87 M who presents with a resistant UTI at hospital. CT scna with question of hydro but on my review its very mild and I don't seen any obstruction, no intervention from urology is needed, also had a simpe renal cyst. [facility] Medical History Bony metastasis Coronary artery disease Depression Emphysema lung ETOH abuse Former smoker Former smoker Generalized weakness Osteoarthritis Scarlet fever Suicidal ideation Home Medications ibuprofen 600 mg tablet 600 mg PO Q6H PRN fever or pain #20 tabs 06/22/22 [Rx Last Taken Unknown] lorazepam 0.5 mg tablet 5 mg PO DAILY PRN PRN Pain 10/23/22 [History Last Taken Unknown] oxycodone 5 mg tablet 2.5 mg PO Q4H PRN PRN Pain 10/23/22 [History Last Taken Unknown] Allergy/AdvReac Type Severity Reaction Status Date / Time venom-honey bee Allergy Anaphylaxis Verified 06/21/22 13:02 [bee venom (honey bee)] Family History Other Liver cancer Parkinson disease Surgical History History of hip surgery Social History household members: none Smoking Status: Former smoker substance use type: does not use ROS Constitutional Constitutional: Denies chills, fever(s) or malaise Eyes Eyes: Denies blurry vision or change in vision ENT HEENT: Reports none Cardiovascular Cardiovascular: Denies chest pain or palpitations Respiratory/Chest Respiratory/Chest: Denies cough or shortness of breath with exertion Gastrointestinal Gastrointestinal: Denies abdominal pain, constipation or diarrhea Musculoskeletal Musculoskeletal: Denies back pain, joint stiffness or joint swelling Integumentary Integumentary: Denies dry skin, jaundice, lesions or rash Neurologic Neurologic: Denies confusion, syncope or weakness Psychiatric Psychiatric: Reports none; Denies anxiety or depression Endocrine Endocrinology: Denies excessive sweating, fatigue or flushing Hematologic/Lymphatic Hematologic/Lymphatic: Denies anemia, easy bleeding or easy bruising Physical Exam Const alert and oriented x3 General Appearance: cooperative HEENT normocephalic, head/scalp atraumatic, EAC's normal and TM's normal bilaterally Eyes PERRL and EOMs intact bilaterally Pupil: sluggish Neck no lymphadenopathy, supple and no JVD General: trachea midline Lymph Lymphatic: no lymphadenopathy noted, lymphedema and lymphadenopathy Resp normal respiratory effort, normal air movement and clear to auscultation b ilaterally Cardio regular rate, regular rhythm and peripheral pulses 2+ throughout GI soft to palpation, non-tender and non-distended Extremity normal capillary refill and no clubbing, cyanosis or edema General Extremity: no tenderness to palpation of joints or extremities Skin no rashes or lesions noted General Skin Exam: turgor normal Lesions: no lesions Rashes: no rashes Neuro CN's II-XII intact bilaterally Speech: speech normal Motor Exam: strength 5/5 throughout; Negative for general weakness Psych thought process normal, cooperative and affect normal Appearance: appropriate Medical Records Data Medical Nutrition Assessment Dietitian: Malnutrition Criteria Met Start: 10/24/22 11:19 Freq: Status: Active Protocol: Document 10/24/22 11:19 RMA (Rec: 10/24/22 11:19 RMA [id number]) Nutrition Malnutrition Evidence of Malnutrition Exists Yes Malnutrition (severe): Chronic,Social/Behavioral/ Environmental Evidenced By Suboptimal Energy Intake ( Severe),Weight Loss (Severe), Physical Changes (Moderate) Intake Problem Inadequate Oral Intake Etiology related to altered GI function /ileus Signs/Symptoms as evidenced by NPO Status Active Problem Clinical Problem Chronic Disease or Condition Related Malnutrition Etiology Severe protein-calorie malnutrition in the context of chronic disease/debility related to inadequate oral intake Signs/Symptoms as evidenced by ~12% wt loss x 6-12 months, ~4-5% wt loss x 4 months, BMI 18, muscle/fat wasting in the clavicle, orbital, temporal region, arms , legs and poor oral intake x past 3-6 months meeting less than 50% estimated nutrition needs; currently NPO Status Active Problem Recommendation Dietitian Recommendations/Changes Recommend advance diet as medically able to Regular. Add 120 ml ensure plus high protein 4 times per day w/ medpass as diet advanced from NPO. Additional ONS once PO established with meals. Consider nutrition support as needed for repletion of energy /protein. Lab / Micro Data Result Diagrams: 10/24/22 06:30 10/24/22 06:30 Labs: Laboratory Results - last 24 hr 10/25/22 : Urine Color Yellow, Urine Clarity Clear, Urine pH 6.0, Ur Specific [place] 1.010, Urine Protein Negative, Urine Glucose (UA) Normal, Urine Ketones 5 H, Urine Occult Blood Negative, Urine Nitrite Negative, Urine Bilirubin Negative, Urine Urobilinogen Normal, Ur Leukocyte Esterase 100 H, Urine RBC 0 SEEN, Urine WBC 10-25 SEEN, Ur Squamous Epith Cells 0 SEEN, Urine Bacteria 0 SEEN, Urine Mucus 0 SEEN Micro: Microbiology 10/23/22 20:55 Urine, Clean Catch Urine Culture - Preliminary ESBL Escherichia coli Rhythm Strip Rhythm Strip: Sinus Rhythm Rate: 75 Ectopy: None
--- NOTE | 2022-10-26 07:58 | EX.PCM.CON.S ---
Assessment & Plan Assessment/Plan (1) Acute UTI: (2) Ileus: PLAN: Plan The patient had an ileus likely due to his UTI. The antibiotics were started yesterday evening and the patient did have bowel function overnight after dose of MiraLAX. I will advance him to a regular diet to see how he tolerates this as he denies any nausea or vomiting or abdominal pain and he is having bowel function at this time. Continue treatment of the UTI and this will further improve the ileus. Randall Mattson MD Pager: [facility] [address] [place] [address], [address] [place] [address] Office: HPI Consult Data Date of Consult: 10/26/22 HPI Narrative HPI Narrative: DONYA GRAF, is a 87 M who is admitted after a fall. The patient had not been having bowel movements and I was consulted for ileus. The patient is currently being treated for UTI. Meropenem was started yesterday evening. The patient had MiraLAX this afternoon and has had 3 bowel movements overnight and is passing flatus. The patient denies any nausea or vomiting. He denies abdominal pain. [facility] Medical History Bony metastasis Coronary artery disease Depression Emphysema lung ETOH abuse Former smoker Former smoker Generalized weakness Osteoarthritis Scarlet fever Suicidal ideation Home Medications ibuprofen 600 mg tablet 600 mg PO Q6H PRN fever or pain #20 tabs 06/22/22 [Rx Last Taken Unknown] lorazepam 0.5 mg tablet 5 mg PO DAILY PRN PRN Pain 10/23/22 [History Last Taken Unknown] oxycodone 5 mg tablet 2.5 mg PO Q4H PRN PRN Pain 10/23/22 [History Last Taken Unknown] Allergy/AdvReac Type Severity Reaction Status Date / Time venom-honey bee Allergy Anaphylaxis Verified 06/21/22 13:02 [bee venom (honey bee)] Family History Other Liver cancer Parkinson disease Surgical History History of hip surgery Social History household members: none Smoking Status: Former smoker substance use type: does not use ROS Constitutional Constitutional: Denies anorexia, chills or fatigue Eyes Eyes: Denies blurry vision ENT HEENT: Denies abnormal hearing Cardiovascular Cardiovascular: Denies chest pain Respiratory/Chest Respiratory/Chest: Denies cough or dyspnea Gastrointestinal Gastrointestinal: Reports change in bowel habits and constipation; Denies abdominal pain, bloating, diarrhea, nausea, rectal bleeding or vomiting Genitourinary Genitourinary: Denies dysuria Musculoskeletal Musculoskeletal: Denies abnormal gait Integumentary Integumentary: Denies jaundice Neurologic Neurologic: Denies dizziness Physical Exam Const alert and oriented x3 HEENT normocephalic Eyes PERRL Lymph Lymphatic: no lymphadenopathy noted Resp normal respiratory effort Cardio Rate: regular rate Rhythm: regular rhythm GI soft to palpation, non-tender and non-distended Back/Spine no CVA tenderness Extremity normal to inspection Skin no rashes or lesions noted Neuro CN's II-XII intact bilaterally Psych mental status grossly normal Medical Records Data Medical Nutrition Assessment Dietitian: Malnutrition Criteria Met Start: 10/24/22 11:19 Freq: Status: Active Protocol: Document 10/24/22 11:19 RMA (Rec: 10/24/22 11:19 RMA [id number]) Nutrition Malnutrition Evidence of Malnutrition Exists Yes Malnutrition (severe): Chronic,Social/Behavioral/ Environmental Evidenced By Suboptimal Energy Intake ( Severe),Weight Loss (Severe), Physical Changes (Moderate) Intake Problem Inadequate Oral Intake Etiology related to altered GI function /ileus Signs/Symptoms as evidenced by NPO Status Active Problem Clinical Problem Chronic Disease or Condition Related Malnutrition Etiology Severe protein-calorie malnutrition in the context of chronic disease/debility related to inadequate oral intake Signs/Symptoms as evidenced by ~12% wt loss x 6-12 months, ~4-5% wt loss x 4 months, BMI 18, muscle/fat wasting in the clavicle, orbital, temporal region, arms , legs and poor oral intake x past 3-6 months meeting less than 50% estimated nutrition needs; currently NPO Status Active Problem Recommendation Dietitian Recommendations/Changes Recommend advance diet as medically able to Regular. Add 120 ml ensure plus high protein 4 times per day w/ medpass as diet advanced from NPO. Additional ONS once PO established with meals. Consider nutrition support as needed for repletion of energy /protein. Lab / Micro Data Result Diagrams: 10/24/22 06:30 10/24/22 06:30 Labs: Laboratory Results - last 24 hr 10/25/22 : Urine Color Yellow, Urine Clarity Clear, Urine pH 6.0, Ur Specific [place] 1.010, Urine Protein Negative, Urine Glucose (UA) Normal, Urine Ketones 5 H, Urine Occult Blood Negative, Urine Nitrite Negative, Urine Bilirubin Negative, Urine Urobilinogen Normal, Ur Leukocyte Esterase 100 H, Urine RBC 0 SEEN, Urine WBC 10-25 SEEN, Ur Squamous Epith Cells 0 SEEN, Urine Bacteria 0 SEEN, Urine Mucus 0 SEEN Micro: Microbiology 10/23/22 20:55 Urine, Clean Catch Urine Culture - Preliminary ESBL Escherichia coli Rhythm Strip Rhythm Strip: Sinus Rhythm Rate: 75 Ectopy: None
[2022-10-26] MEDS: Ibuprofen 600 MG Tablet PO (09:05)
--- NOTE | 2022-10-26 14:02 | CASEMGMT ---
Addendum entered by Mile Rocha 10/26/22 15:13: Spoke with hospitalist, pt will dc on po atb. TC to pt dtr to discuss HHC again. She states that she is willing to try HHC again if pt agreeable to it. States pt gets irritated when the nurse comes in and asks alot of questions and pt feels it is not benefitting him. TC to Lilia to make aware pt will dc on po atb and dtr is agreeable to care. Plan for Saturday SOC. Green sheet on chart. Addendum entered by Mile Rocha 10/26/22 14:49: Spoke with Lilia at [facility], d/t pt only having dtr as contact there is concern of scheduling visits. SN availability is on Saturday. Will hold on referral at this time to see if pt will need IV or not. If not, will discuss pt care with dtr again and make aware pt is stating he wants HHC. Addendum entered by Mile Rocha 10/26/22 14:44: Received tc back from Lilia at [facility] who states she called pt dtr and she declined HHC. Pt is of sound mind and can make decisions and is agreeable, asked her to call pt. Addendum entered by Mile Rocha 10/26/22 14:38: Received acceptance from [facility], added nursing d/t UTI. Awaiting rounding by hospitalist as it appears pt is isolation for ESBL UTI. Should pt need IV antibiotics, pt will need SNF as dtr is unable to be with patient to assist. Addendum entered by Mile Rocha 10/26/22 14:13: ÁNGEL WOODWARD back into pt room to make aware that pt dtr did not pick a HHC choice. Pt states he did not remember throwing a walker at his therapist and states that he will participate in therapy. Patient was provided a list of [facility] providers including quality and resource use data and consistent with the patient?s preferred geographic region, medical needs, and insurance network were provided from the [employer] Guide. Pt aware that therapy and SENIOR ACCOUNTS PAYABLE CLERK would be ordered. Pt chose [facility], tc to Lilia at [facility] referral made. Will await response. Original Note: ÁNGEL WOODWARD into pt room, pt lying in bed in no distress. Pt states he wants to go home. States he would be willing to do HHC but would like his dtr to pick the agency. TC to dtr, she states she would like pt to go to [facility]. She is aware pt does not want this and was able to ambulate 100 feet with the walker. She is also awware that there is no bed availability in TCU. Discussed HHC options. Pt dtr states that pt threw his walker at a therapist and made racial comments to her. States it is hard for her to have HHC and she would like to pass.
--- NOTE | 2022-10-26 15:42 | PCM.PN.HOSP ---
Subjective Subjective Follow-up for small bowel and colonic ileus. ESBL E. coli UTI. Objective Data Objective Data Vital Signs: Vital Signs Temp Pulse Resp BP Pulse Ox O2 Del Method 98.0 F 72 18 128/77 H 97 Room Air 10/26/22 14:49 10/26/22 14:49 10/26/22 14:49 10/26/22 14:49 10/26/22 14:49 10/26/22 14:49 Oxygen Delivery Method Room Air Weight: 132 lb 7.965 oz Body Mass Index (BMI) 17.9 Intake & Output: Intake and Output for Last 24 Hours 10/24/22 10/25/22 10/26/22 23:59 23:59 23:59 Intake Total 2320.00 / 2320.00 1987.33 / 1987. 240 / 240 Output Total 550 / 750 550 / 850 2350 / 2350 Balance 1770.00 / 1570.00 1438.33 / 1138.33 -2110 / -2110 Medical Nutrition Assessment Dietitian: Malnutrition Criteria Met Start: 10/24/22 11:19 Freq: Status: Active Protocol: Document 10/24/22 11:19 RMA (Rec: 10/24/22 11:19 RMA [id number]) Nutrition Malnutrition Evidence of Malnutrition Exists Yes Malnutrition (severe): Chronic,Social/Behavioral/ Environmental Evidenced By Suboptimal Energy Intake ( Severe),Weight Loss (Severe), Physical Changes (Moderate) Intake Problem Inadequate Oral Intake Etiology related to altered GI function /ileus Signs/Symptoms as evidenced by NPO Status Active Problem Clinical Problem Chronic Disease or Condition Related Malnutrition Etiology Severe protein-calorie malnutrition in the context of chronic disease/debility related to inadequate oral intake Signs/Symptoms as evidenced by ~12% wt loss x 6-12 months, ~4-5% wt loss x 4 months, BMI 18, muscle/fat wasting in the clavicle, orbital, temporal region, arms , legs and poor oral intake x past 3-6 months meeting less than 50% estimated nutrition needs; currently NPO Status Active Problem Recommendation Dietitian Recommendations/Changes Recommend advance diet as medically able to Regular. Add 120 ml ensure plus high protein 4 times per day w/ medpass as diet advanced from NPO. Additional ONS once PO established with meals. Consider nutrition support as needed for repletion of energy /protein. Lab / Micro Data Result Diagrams: 10/24/22 06:30 10/24/22 06:30 Micro: Microbiology 10/25/22 Unknown Urine, Clean Catch Urine Culture - Preliminary GNR lactose clinical research administrator 10/23/22 20:55 Urine, Clean Catch Urine Culture - Final ESBL Escherichia coli Rhythm Strip Rhythm Strip: Sinus Rhythm Rate: 75 Ectopy: None Physical Exam Narrative Patient moved bowels 3 times and passing gas. Patient feels more happy. He feels sorry about his behavior. No fever. No abdominal pain. Bilateral hip pain, both feel like same. Patient cannot lift leg and cannot keep for 5 seconds. Physical exam General: Alert, Oriented x3, Cooperative HEENT: Atraumatic, PERRLA, EOMI, Normocephalic Oral: No Gingival or Mucosal Lesions/ Ulcerations Neck: Supple, No JVD, Negative Carotid Bruits Lungs: Air entry diminished in bilateral lung bases. No crepitation/rhonchi Cardiovascular: Regular rate, Regular Rhythm, Normal S1, Normal S2, No murmurs Abdomen: Bowel Sounds Present, Soft, Non Tender, Non-Distended : No renal angle tenderness. No suprapubic tenderness. Extremities: No edema, Capillary Refill Less than 3 Seconds Skin: No rashes, No breakdown Musculoskeletal: Right hip fracture status post remote ORIF surgery. ROM restricted over both hips. No point tenderness over the right or left hip. Neurological: Cranial nerves II-XII grossly intact, DTR 2+/4 and Symmetrical, Psych/Mental Status: Normal affect. Assessment & Plan Assessment/Plan (1) Fall: (2) Debility: (3) Ileus: PLAN: Plan 87-year-old male was admitted with 2 fall in 24 hours. EMS found him lying on the left side, complaining of severe pain localized 8?9 out of 10, worse on moving. Falls with debility: Patient fell and landed on his right side, about 3 hours prior to presentation to ED. Patient had x-ray of hip and pelvis x-ray and CT scan of abdomen which reported no evidence of femoral or pelvic fracture. I individually reviewed the imaging and does not show femoral pelvic fracture. PT and OT ordered. 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 Patient is not participating in PT and OT evaluation therefore further determination cannot be made. 10/26:Patient will need home health at time of discharge probably tomorrow. Continue PT. Hypotension: Blood pressure was recorded 88/50 twice around 6 AM. Patient was given 1 L IV bolus normal saline. Repeat blood pressure is still low 95/50. Temperature is 100.5. 1 L Ringer lactate ordered but patient refused and later on blood pressure improved to 122/76. IV fluid normal saline 100 mill per hour. Patient is agitated, grumpy and refusing to answer questions. He said he had mild burning micturition but refusing to answer questions regarding HPI or review of systems. Lactic acid and other labs ordered. In ED patient's blood pressure was in normal range 146/97-152/87 as per age. Later on blood pressure recovered. 10/25: Hypotension resolved. SBP more than 90 mmHg. Patient not having any symptoms of hypotension and dizziness lightheadedness chest pain or shortness of breath. Small and large bowel ileus due to feces: Patient has chronic constipation and last bowel movement a day before admission. CT abdomen individually reviewed and shows diffusely gastric and small bowel loops without obstruction. Feces present throughout the colon without mass or obstruction. Patient reports some indigestion without any thiago abdominal pain. I talked to the patient's daughter on the phone. We agreed upon IV fluid. Clear liquid and stool softeners. Senna S 2 tablet twice daily. This might need escalation after hydration if colon is not cleared. 10/25: Patient was examined in the presence of nurse. Dulcolax 10 mg oral and soapsuds enema. Full liquid diet. 10/26: Patient moved bowel 3 times and passing flatus. Discussed with the surgeon. The surgeon consult note reviewed. Continue MiraLAX and senna as. Started on regular diet. UTI/mild left hydronephrosis: Patient complain of dysuria increased frequency. Shows simple cyst extending from lower pole of left kidney Urinalysis is abnormal, UA WBC 25-50 cells, LE 100, 3+ bacteria negative nitrite.. Started on Rocephin at the emergency department and continued. Morning CBC on presentation showed white count of 8.0. Trend. 10/25: Discussed with ID Dr. Anderson. IV meropenem started along with repeat UA and urine culture. Ceftriaxone discontinued. Most likely Bactrim DS at the time of discharge with a total of 7 days of antibiotic. 10/26: Urologist consult reviewed. Mild hydronephrosis. No active surgical intervention needed. Treat ESBL E. coli UTI. Hyperbilirubinemia Total bili of 2.2 on presentation. With history of elevated bili. Monitor liver chemistry. DVT prophylaxis: Subcutaneous Lovenox ordered. Total time of the visit including total time spent in counseling or coordination of care, (more than 50% of the total time, spent in obtaining medical information from nurses and other ancillary care providers,explaining to the patient about labs, imaging, diagnosis and management of active complex medical conditions), discussion with ID, review of labs and imaging is 40 minutes. Charges/Coding Visit Charges Inpatient E&M: 24211 Subs Hosp L3
--- NOTE | 2022-10-26 17:27 | CHAPLAIN ---
Type of Pastoral Visit _x__ Initial Visit ___ Follow-up Visit ___ On-call Visit ___ General Patient Visit ___ Spiritual Assessment ___ Family Conference ___ Bereavement ___ Rapid Response ___ Code Blue ___ Other (describe below) Pastoral Care Referral From ___ Patient ___ Family ___ Nurse ___ Physician _x__ Naval Engineer ___ Shirt Line Operator ___ Other (describe below) Sacrament/Intervention _x__ Active listening ___ Anointing ___ Samaritan ___ Bereavement ___ Communion _x__ Nae exploration ___ _x__ Life review _x__ Prayer ___ Reconciliation ___ Sacrament of Sick _x__ Supportive presence ___ Wedding ___ Other (describe below) Pastoral Comments this visit was requested by SW as pt was irritable with female staff that kept asking questions; pt is offered presence and support; pt does talk about his living situation with daughter and feels like he is a burden to his family; talked through some of these feelings and why he might be able to take a different perspective; pt talks about his life; pt has had a nae connection in the past but has not been active for a long time; pt is tearful at times during the visit; pt welcomes presence and prayer; pt states no other needs
[2022-10-26] MEDS: 0.9% Saline Lock 10 ML Syringe IV (22:50)
[2022-10-26] MEDS: Ondansetron 4 MG/2 ML Vial IV (22:50)
[2022-10-26] MEDS: MELATONIN 3 MG TABLET PO (22:54)
[2022-10-27 04:14] VITALS: BP 121/77; PULSE 88; RESP 16; TEMP 36.6; O2SAT 94
[2022-10-27] MEDS: proCHLORPERazine 10 MG/2 ML Vial 5 MG IV (04:23)
[2022-10-27] MEDS: 0.9% Saline Lock 10 ML Syringe IV (04:23)
[2022-10-27 09:53] VITALS: BP 133/65; PULSE 72; RESP 16; TEMP 36.9; O2SAT 98
--- NOTE | 2022-10-27 12:40 | DCINST_ITS ---
Discharge Instructions Diet Discharge Diet: Soft diet (for 3 days) and - Activity Discharge Activity: Return to Normal Activity and May Not Drive Dressing / Incision Call your doctor if you observe: Fever of 101 or Higher, Coldness, Increased Pain, Numbness or Tingling, Change in Color, Inability to urinate, Inability to have a bowel movement, Shortness of breath, Dizziness, Swelling in the ankles, Chest pain, Increased palpitations (irregular heartbeat), Calf discomfort and Uncontrolled pain Follow Up Care Test Results: Test results from this visit will be discussed in further detail at your follow- up appointment, if applicable. Discharge Plan Admission Admit Date/Time: 10/23/22 22:36 Primary Reason for Your Visit: Ileus, ESBL E coli UTI Attending Provider: Narciso Christianson Primary Care Provider: Lidia Garcia Consulting Providers: Andrew Osuna ; Jerrod Oneil ; Randall Mattson Discharge Orders/Prescriptions Prescriptions: New polyethylene glycol 3350 17 gram Powder In Packet 17 g PO DAILY Qty: 30 0RF sennosides-docusate sodium [Stool Softener-Stimulant Laxat] 8.6-50 mg Tablet 2 tab PO BID PRN (Reason: CONSTIPATION) Qty: 60 0RF acetaminophen 500 mg Tablet 1,000 mg PO Q8 PRN (Reason: ARTHRITIS PAIN) Qty: 0 0RF sulfamethoxazole-trimethoprim [Bactrim DS] 800-160 mg tablet 1 tab PO BID Qty: 14 0RF Continued lorazepam 0.5 mg tablet 5 mg PO DAILY PRN PRN (Reason: Pain) Label Comments: TAKE 1 TABLET BY MOUTH EVERY 4 HOURS NEEDED FOR ANXIETY oxycodone 5 mg tablet 2.5 mg PO Q4H PRN PRN (Reason: Pain) Label Comments: TAKE 1/2 (ONE-HALF) OF A TABLET BY MOUTH EVERY 4 HOURS NEEDED FOR PAIN Discontinued ibuprofen 600 mg tablet 600 mg PO Q6H PRN (Reason: fever or pain) Qty: 20 0RF Referrals / Follow Up: Randall Mattson MD [Med Staff - Active Staff] - Within 1 Month (F/U for ileus) Jerrod Oneil MD [Med Staff - Active Staff] - Within 1 Month (FOR LEFT Hydronephrosis) Lidia Garcia, DO [Primary Care Provider] - Within 2 Weeks Disposition Disposition (needs filled in before D/C Order can be placed): Home Health Service
--- NOTE | 2022-10-27 12:52 | DS.PCM_ITS ---
Providers Date of Admission: 10/23/22 Date of Discharge: 10/27/22 Primary Care Physician: Lidia Garcia, Consultations 10/25/22 13:36 Consult: Urology Routine Consulting Provider: Jerrod Oneil Reason for Consult: ESBL UTI, Left hydro with large cyst EMERGENT Consult: No MD Notified: Yes Date Notified: 10/25/22 Time Notified: 13:36 Method of Notification: Verbal 10/25/22 16:24 Consult: General Surgery Routine Consulting Provider: Randall Mattson Reason for Consult: small bowel ileus and colonic feces EMERGENT Consult: No MD Notified: Yes Date Notified: 10/25/22 Time Notified: 16:24 Method of Notification: Verbal Reason For Visit: MULITPLE FALLS, UTI, ILEUS Diagnosis Discharge Diagnosis (1) Fall: Status: Acute Code(s): W19.XXXA - Unspecified fall, initial encounter (2) Debility: Status: Acute Code(s): R53.81 - Other malaise (3) Ileus: Status: Acute Code(s): K56.7 - Ileus, unspecified Medications at Discharge Home Medications lorazepam 0.5 mg tablet 5 mg PO DAILY PRN PRN Pain 10/23/22 oxycodone 5 mg tablet 2.5 mg PO Q4H PRN PRN Pain 10/23/22 acetaminophen 500 mg tablet 1,000 mg PO Q8 PRN ARTHRITIS PAIN #0 tabs 10/27/22 polyethylene glycol 3350 17 gram oral powder packet 17 g PO DAILY #30 ea 10/27/22 sennosides 8.6 mg-docusate sodium 50 mg tablet (Stool Softener-Stimulant Laxative) 2 tab PO BID PRN CONSTIPATION #60 tabs 10/27/22 sulfamethoxazole 800 mg-trimethoprim 160 mg tablet (Bactrim DS) 1 tab PO BID #14 tabs 10/27/22 Hospital Course Summary of Care Provided Hospital Course: 87-year-old male was admitted with 2 fall in 24 hours. EMS found him lying on the left side, complaining of severe pain localized 8?9 out of 10, worse on moving. Falls with debility: Patient fell and landed on his right side, about 3 hours prior to presentation to ED. Patient had x-ray of hip and pelvis x-ray and CT scan of abdomen which reported no evidence of femoral or pelvic fracture. I individually reviewed the imaging and does not show femoral pelvic fracture. PT and OT ordered. 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 Patient is not participating in PT and OT evaluation therefore further determination cannot be made. 10/26:Patient will need home health at time of discharge probably tomorrow. Continue PT. Hypotension: Blood pressure was recorded 88/50 twice around 6 AM. Patient was given 1 L IV bolus normal saline. Repeat blood pressure is still low 95/50. Temperature is 100.5. 1 L Ringer lactate ordered but patient refused and later on blood pressure improved to 122/76. IV fluid normal saline 100 mill per hour. Patient is agitated, grumpy and refusing to answer questions. He said he had mild burning micturition but refusing to answer questions regarding HPI or review of systems. Lactic acid and other labs ordered. In ED patient's blood pressure was in normal range 146/97-152/87 as per age. Later on blood pressure recovered. 10/25: Hypotension resolved. SBP more than 90 mmHg. Patient not having any symptoms of hypotension and dizziness lightheadedness chest pain or shortness of breath. Small and large bowel ileus due to feces: Patient has chronic constipation and last bowel movement a day before admission. CT abdomen individually reviewed and shows diffusely gastric and small bowel loops without obstruction. Feces present throughout the colon without mass or obstruction. Patient reports some indigestion without any thiago abdominal pain. I talked to the patient's daughter on the phone. We agreed upon IV fluid. Clear liquid and stool softeners. Senna S 2 tablet twice daily. This might need escalation after hydration if colon is not cleared. 10/25: Patient was examined in the presence of nurse. Dulcolax 10 mg oral and soapsuds enema. Full liquid diet. 10/26: Patient moved bowel 3 times and passing flatus. Discussed with the surgeon. The surgeon consult note reviewed. Continue MiraLAX and senna as. Started on regular diet. 3: Patient is moving bowel. Advised soft diet for 3 days. Continue taking MiraLAX with senna as as needed as prescribed. UTI/mild left hydronephrosis: Patient complain of dysuria increased frequency. Shows simple cyst extending from lower pole of left kidney Urinalysis is abnormal, UA WBC 25-50 cells, LE 100, 3+ bacteria negative nitrit e.. Started on Rocephin at the emergency department and continued. Morning CBC on presentation showed white count of 8.0. Trend. 10/25: Discussed with ID Dr. Anderson. IV meropenem started along with repeat UA and urine culture. Ceftriaxone discontinued. Most likely Bactrim DS at the time of discharge with a total of 7 days of antibiotic. 10/26: Urologist consult reviewed. Mild hydronephrosis. No active surgical intervention needed. Treat ESBL E. coli UTI. 10/27: Patient is being discharged on 10/27: Patient is being discharged on Bactrim DS 1 tablet twice daily for 7 days. Follow-up with the urologist in 1 month for left hydronephrosis. Hyperbilirubinemia Total bili of 2.2 on presentation. With history of elevated bili. Monitor liver chemistry. DVT prophylaxis: Subcutaneous Lovenox ordered. Discharge medication reconciliation done. Discharge follow-up instructions completed. Discharge process discussed with the patient and all questions were answered to patient's satisfaction. Total time spent, exact 35 minutes on discharge meds reconciliation, examination, coordination of care with nurses and ancillary staff, review of imaging and blood test and discussion with the patient on follow-up instructions. Physical Exam Narrative Patient moving BM/day. No fever. No abdominal pain. Bilateral hip pain, both feel like same. Patient cannot lift leg and cannot keep for 5 seconds. Physical exam General: Alert, Oriented x3, Cooperative. curled up in positon HEENT: Atraumatic, PERRLA, EOMI, Normocephalic Oral: No Gingival or Mucosal Lesions/ Ulcerations Neck: Supple, No JVD, Negative Carotid Bruits Lungs: Air entry diminished in bilateral lung bases. No crepitation/rhonchi Cardiovascular: Regular rate, Regular Rhythm, Normal S1, Normal S2, No murmurs Abdomen: Bowel Sounds Present, Soft, Non Tender, Non-Distended : No renal angle tenderness. No suprapubic tenderness. Extremities: No edema, Capillary Refill Less than 3 Seconds Skin: No rashes, No breakdown Musculoskeletal: Right hip fracture status post remote ORIF surgery. ROM restricted over both hips. No point tenderness over the right or left hip. Neurological: Cranial nerves II-XII grossly intact, DTR 2+/4 and Symmetrical, Psych/Mental Status: Normal affect.Flat affect. Medical Records Data Medical Nutrition Assessment Dietitian: Malnutrition Criteria Met Start: 10/24/22 11:19 Freq: Status: Active Protocol: Document 10/24/22 11:19 RMA (Rec: 10/24/22 11:19 RMA [id number]) Nutrition Malnutrition Evidence of Malnutrition Exists Yes Malnutrition (severe): Chronic,Social/Behavioral/ Environmental Evidenced By Suboptimal Energy Intake ( Severe),Weight Loss (Severe), Physical Changes (Moderate) Intake Problem Inadequate Oral Intake Etiology related to altered GI function /ileus Signs/Symptoms as evidenced by NPO Status Active Problem Clinical Problem Chronic Disease or Condition Related Malnutrition Etiology Severe protein-calorie malnutrition in the context of chronic disease/debility related to inadequate oral intake Signs/Symptoms as evidenced by ~12% wt loss x 6-12 months, ~4-5% wt loss x 4 months, BMI 18, muscle/fat wasting in the clavicle, orbital, temporal region, arms , legs and poor oral intake x past 3-6 months meeting less than 50% estimated nutrition needs; currently NPO Status Active Problem Recommendation Dietitian Recommendations/Changes Recommend advance diet as medically able to Regular. Add 120 ml ensure plus high protein 4 times per day w/ medpass as diet advanced from NPO. Additional ONS once PO established with meals. Consider nutrition support as needed for repletion of energy /protein. Weight / BMI Weight Weight: 132 lb 7.965 oz Body Mass Index (BMI) 17.9 ABG / Lab / Microbiology Data Result Diagrams: 10/24/22 06:30 10/24/22 06:30 Microbiology: Microbiology 10/25/22 Unknown Urine, Clean Catch Urine Culture - Preliminary ESBL Escherichia coli 10/23/22 20:55 Urine, Clean Catch Urine Culture - Final ESBL Escherichia coli D/C Instructions Discharge Diet: Soft diet (for 3 days) and - Call your doctor if you observe: Fever of 101 or Higher, Coldness, Increased Pain, Numbness or Tingling, Change in Color, Inability to urinate, Inability to have a bowel movement, Shortness of breath, Dizziness, Swelling in the ankles, Chest pain, Increased palpitations (irregular heartbeat), Calf discomfort and Uncontrolled pain Discharge Plan Admission Admit Date/Time: 10/23/22 22:36 Primary Reason for Your Visit: Ileus, ESBL E coli UTI Attending Provider: Narciso Christianson Primary Care Provider: Lidia Garcia Consulting Providers: Andrew Osuna ; Jerrod Oneil ; Randall Mattson Discharge Orders/Prescriptions Prescriptions: New polyethylene glycol 3350 17 gram Powder In Packet 17 g PO DAILY Qty: 30 0RF sennosides-docusate sodium [Stool Softener-Stimulant Laxat] 8.6-50 mg Tablet 2 tab PO BID PRN (Reason: CONSTIPATION) Qty: 60 0RF acetaminophen 500 mg Tablet 1,000 mg PO Q8 PRN (Reason: ARTHRITIS PAIN) Qty: 0 0RF sulfamethoxazole-trimethoprim [Bactrim DS] 800-160 mg tablet 1 tab PO BID Qty: 14 0RF Continued lorazepam 0.5 mg tablet 5 mg PO DAILY PRN PRN (Reason: Pain) Label Comments: TAKE 1 TABLET BY MOUTH EVERY 4 HOURS NEEDED FOR ANXIETY oxycodone 5 mg tablet 2.5 mg PO Q4H PRN PRN (Reason: Pain) Label Comments: TAKE 1/2 (ONE-HALF) OF A TABLET BY MOUTH EVERY 4 HOURS NEEDED FOR PAIN Discontinued ibuprofen 600 mg tablet 600 mg PO Q6H PRN (Reason: fever or pain) Qty: 20 0RF Referrals / Follow Up: Randall Mattson MD [Med Staff - Active Staff] - Within 1 Month (F/U for ileus) Jerrod Oneil MD [Med Staff - Active Staff] - Within 1 Month (FOR LEFT Hydronephrosis) Lidia Garcia DO [Primary Care Provider] - Within 2 Weeks Disposition Disposition (needs filled in before D/C Order can be placed): Home Health Ser vice Charges/Coding Visit Charges Inpatient E&M: 70597 Disch Hosp
[2022-10-27 14:58] VITALS: BP 124/68; PULSE 71; RESP 16; TEMP 37; O2SAT 94
--- NOTE | 2022-10-27 15:47 | PN.HOSP_ITS ---
Objective Data Objective Data Vital Signs: Vital Signs Temp Pulse Resp BP Pulse Ox O2 Del Method 98.6 F 71 16 124/68 H 94 Room Air 10/27/22 14:58 10/27/22 14:58 10/27/22 14:58 10/27/22 14:58 10/27/22 14:58 10/27/22 14:58 Oxygen Delivery Method Room Air Weight: 132 lb 7.965 oz Body Mass Index (BMI) 17.9 Intake & Output: Intake and Output for Last 24 Hours 10/25/22 10/26/22 10/27/22 23:59 23:59 23:59 Intake Total 1987.33 / 1987.33 560 / 560 440 / 440 Output Total 550 / 850 2750 / 2750 400 / 400 Balance 1438.33 / 1138.33 -2190 / -2190 40 / 40 Medical Nutrition Assessment Dietitian: Malnutrition Criteria Met Start: 10/24/22 11:19 Freq: Status: Active Protocol: Document 10/24/22 11:19 RMA (Rec: 10/24/22 11:19 RMA [id number]) Nutrition Malnutrition Evidence of Malnutrition Exists Yes Malnutrition (severe): Chronic,Social/Behavioral/ Environmental Evidenced By Suboptimal Energy Intake ( Severe),Weight Loss (Severe), Physical Changes (Moderate) Intake Problem Inadequate Oral Intake Etiology related to altered GI function /ileus Signs/Symptoms as evidenced by NPO Status Active Problem Clinical Problem Chronic Disease or Condition Related Malnutrition Etiology Severe protein-calorie malnutrition in the context of chronic disease/debility related to inadequate oral intake Signs/Symptoms as evidenced by ~12% wt loss x 6-12 months, ~4-5% wt loss x 4 months, BMI 18, muscle/fat wasting in the clavicle, orbital, temporal region, arms , legs and poor oral intake x past 3-6 months meeting less than 50% estimated nutrition needs; currently NPO Status Active Problem Recommendation Dietitian Recommendations/Changes Recommend advance diet as medically able to Regular. Add 120 ml ensure plus high protein 4 times per day w/ medpass as diet advanced from NPO. Additional ONS once PO established with meals. Consider nutrition support as needed for repletion of energy /protein. Lab / Micro Data Result Diagrams: 10/24/22 06:30 10/24/22 06:30 Micro: Microbiology 10/25/22 Unknown Urine, Clean Catch Urine Culture - Preliminary ESBL Escherichia coli 10/23/22 20:55 Urine, Clean Catch Urine Culture - Final ESBL Escherichia coli Rhythm Strip Rhythm Strip: Sinus Rhythm Rate: 75 Ectopy: None Physical Exam Narrative Patient had vomiting today and had large bowel movement therefore discharge canceled. ?Patient moving BM/day.? No fever.? No abdominal pain. Bilateral hip pain, both feel like same.? Patient cannot lift leg and cannot keep for 5 seconds. Physical exam General: Alert, Oriented x3, Cooperative. curled up in positon HEENT: Atraumatic, PERRLA, EOMI, Normocephalic Oral: No Gingival or Mucosal Lesions/ Ulcerations Neck: Supple, No JVD, Negative Carotid Bruits Lungs:? Air entry diminished in bilateral lung bases.? No crepitation/rhonchi Cardiovascular: Regular rate, Regular Rhythm, Normal S1, Normal S2, No murmurs Abdomen: Bowel Sounds Present, Soft, Non Tender, Non-Distended : No renal angle tenderness.? No suprapubic tenderness. Extremities: No edema, Capillary Refill Less than 3 Seconds Skin: No rashes, No breakdown Musculoskeletal: Right hip fracture status post remote ORIF surgery.? ROM restricted over both hips.? No point tenderness over the right or left hip. Neurological: Cranial nerves II-XII grossly intact, DTR? 2+/4 and Symmetrical, Psych/Mental Status: Normal affect.Flat a Assessment & Plan Assessment/Plan (1) Acute UTI: (2) Ileus: PLAN: Plan 87-year-old male was admitted with 2 fall in 24 hours.? EMS found him lying on the left side, complaining of severe pain localized 8?9 out of 10, worse on moving. Falls with debility: Patient fell and landed on his right side, about 3 hours prior to presentation to ED.? Patient had x-ray? of hip and pelvis x-ray and CT scan of abdomen which reported no evidence of femoral or pelvic fracture.? I individually reviewed the imaging and does not show femoral pelvic fracture. PT and OT ordered. 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 Patient is not participating in PT and OT evaluation therefore further determination cannot be made. 10/26:Patient will need home health at time of discharge probably tomorrow.? Continue PT. Hypotension: Blood pressure was recorded 88/50 twice around 6 AM.? Patient was given 1 L IV bolus normal saline.? Repeat blood pressure is still low 95/50.? Temperature is 100.5.? 1 L Ringer lactate ordered but patient refused and later on blood pressure improved to 122/76.? IV fluid normal saline 100 mill per hour.? Patient is agitated, grumpy and refusing to answer questions.? He said he had mild burning micturition but refusing to answer questions regarding HPI or review of systems.? Lactic acid and other labs ordered.? In ED patient's blood pressure was in normal range 146/97-152/87 as per age.? Later on blood pressure recovered. 10/25: Hypotension resolved.? SBP more than 90 mmHg.? Patient not having any symptoms of hypotension and dizziness lightheadedness chest pain or shortness of breath. Small and large bowel ileus due to feces: Patient has chronic constipation and last bowel movement a day before admission.? CT abdomen individually reviewed and shows diffusely gastric and small bowel loops without obstruction.? Feces present throughout the colon without mass or obstruction. Patient reports some indigestion without any thiago abdominal pain.? I talked to the patient's daughter on the phone.? We agreed upon IV fluid.? Clear liquid and stool softeners.? Senna S 2 tablet twice daily.? This might need escalation after hydration if colon is not cleared. 10/25: Patient was examined in the presence of nurse.? Dulcolax 10 mg oral and soapsuds enema.? Full liquid diet. 10/26: Patient moved bowel 3 times and passing flatus.? Discussed with the surgeon.? The surgeon consult note reviewed.? Continue MiraLAX and senna as.? Started on regular diet. 10/27: Patient has large bowel movement and had emesis in the morning. Discontinue MiraLAX and senna as. IV fluid Ringer lactate for dehydration. Cancel the discharge. UTI/mild left hydronephrosis: Patient complain of dysuria increased frequency.? Shows simple cyst extending from? lower pole of left kidney Urinalysis is abnormal, UA WBC 25-50 cells, LE 100, 3+ bacteria negative nitrite..? Started on Rocephin at the emergency department and continued.? Mo rning CBC on presentation showed white count of 8.0.? Trend. 10/25: Discussed with ID Dr. Anderson.? IV meropenem started along with repeat UA and urine culture.? Ceftriaxone discontinued.? Most likely Bactrim DS at the time of discharge with a total of 7 days of antibiotic. 10/26: Urologist consult reviewed.? Mild hydronephrosis.? No active surgical intervention needed.? Treat ESBL E. coli UTI. 10/27: Continue meropenem. At the time of discharge convert to oral Bactrim DS.? Follow-up with the urologist in 1 month for left hydronephrosis. Hyperbilirubinemia Total bili of 2.2 on presentation.? With history of elevated bili.? Monitor liver chemistry. DVT prophylaxis: Subcutaneous Lovenox ordered. Total time of the visit including total time spent in counseling or coordination of care, (more than 50% of the total time, spent in obtaining medical information from nurses and other ancillary care providers,explaining to the patient about labs, imaging, diagnosis and management of active complex medical conditions), discussion with consultants, review of labs and imaging is 40 minutes. Charges/Coding Visit Charges Inpatient E&M: 55776 Subs Hosp L3
[2022-10-27] MEDS: 0.9% Normal Saline 1,000 ML 75 ML IV (17:41)
[2022-10-27 20:32] VITALS: BP 139/71; PULSE 74; RESP 18; TEMP 36.9; O2SAT 95
[2022-10-27] MEDS: Ondansetron 4 MG/2 ML Vial IV (20:45)
[2022-10-28] MEDS: proCHLORPERazine 10 MG/2 ML Vial 5 MG IV (02:32)
[2022-10-28 02:34] VITALS: BP 144/74; PULSE 60; RESP 16; TEMP 36.9; O2SAT 95
[2022-10-28] MEDS: Mag Hydrox/Al Hydrox/Simeth 30 ML UDC 15 ML PO ×3 (06:48→19:50)
--- NOTE | 2022-10-28 07:58 | PN.HOSP_ITS ---
Subjective Subjective Does not feel well, but does not elaborate on symptoms. Objective Data Objective Data Vital Signs: Vital Signs Temp Pulse Resp BP Pulse Ox O2 Del Method 36.9 C 60 16 144/74 H 95 Room Air 10/28/22 02:34 10/28/22 02:34 10/28/22 02:34 10/28/22 02:34 10/28/22 02:34 10/28/22 02:34 Oxygen Delivery Method Room Air Weight: 60.1 kg Body Mass Index (BMI) 17.9 Intake & Output: Intake and Output for Last 24 Hours 10/26/22 10/27/22 10/28/22 23:59 23:59 23:59 Intake Total 560 / 560 560 / 560 1096.50 / 1096.50 Output Total 2750 / 2750 950 / 1400 650 / 650 Balance -2190 / -2190 -390 / -840 446.50 / 446.50 Medical Nutrition Assessment Dietitian: Malnutrition Criteria Met Start: 10/24/22 11:19 Freq: Status: Active Protocol: Document 10/24/22 11:19 RMA (Rec: 10/24/22 11:19 RMA [id number]) Nutrition Malnutrition Evidence of Malnutrition Exists Yes Malnutrition (severe): Chronic,Social/Behavioral/ Environmental Evidenced By Suboptimal Energy Intake ( Severe),Weight Loss (Severe), Physical Changes (Moderate) Intake Problem Inadequate Oral Intake Etiology related to altered GI function /ileus Signs/Symptoms as evidenced by NPO Status Active Problem Clinical Problem Chronic Disease or Condition Related Malnutrition Etiology Severe protein-calorie malnutrition in the context of chronic disease/debility related to inadequate oral intake Signs/Symptoms as evidenced by ~12% wt loss x 6-12 months, ~4-5% wt loss x 4 months, BMI 18, muscle/fat wasting in the clavicle, orbital, temporal region, arms , legs and poor oral intake x past 3-6 months meeting less than 50% estimated nutrition needs; currently NPO Status Active Problem Recommendation Dietitian Recommendations/Changes Recommend advance diet as medically able to Regular. Add 120 ml ensure plus high protein 4 times per day w/ medpass as diet advanced from NPO. Additional ONS once PO established with meals. Consider nutrition support as needed for repletion of energy /protein. Lab / Micro Data Result Diagrams: 10/24/22 06:30 10/24/22 06:30 Micro: Microbiology 12/01/22 Unknown Urine, Clean Catch Urine Culture - Final ESBL Escherichia coli 10/23/22 20:55 Urine, Clean Catch Urine Culture - Final ESBL Escherichia coli Rhythm Strip Rhythm Strip: Sinus Rhythm Rate: 75 Ectopy: None Physical Exam Const Constitutional Narrative: hard of hearing, but answers questions reluctantly when he hears them. Most often he will look away and not say anything when asked a direct question. Resp normal respiratory effort, no retractions, no use of accessory muscles and clear to auscultation bilaterally Cardio regular rate, regular rhythm, S1 normal heart sound and S2 normal heart sound Assessment & Plan Assessment/Plan (1) Acute UTI: PLAN: UTI/mild left hydronephrosis: Patient complain of dysuria increased frequency.? Shows simple cyst extending from? lower pole of left kidney Urinalysis is abnormal, UA WBC 25-50 cells, LE 100, 3+ bacteria negative nitrite..? Started on Rocephin at the emergency department and continued.? Morning CBC on presentation showed white count of 8.0.? Trend. 10/25: Discussed with ID Dr. Anderson.? IV meropenem started along with repeat UA and urine culture.? Ceftriaxone discontinued.? Most likely Bactrim DS at the ene e of discharge with a total of 7 days of antibiotic. 10/26: Urologist consult reviewed.? Mild hydronephrosis.? No active surgical intervention needed.? Treat ESBL E. coli UTI. 10/27: Continue meropenem. At the time of discharge convert to oral Bactrim DS.? Follow-up with the urologist in 1 month for left hydronephrosis. 10/28: change abx to bactrim DS. (2) Ileus: PLAN: Small and large bowel ileus due to feces: Patient has chronic constipation and last bowel movement a day before admission.? CT abdomen individually reviewed and shows diffusely gastric and small bowel loops without obstruction.? Feces present throughout the colon without mass or obstruction. Patient reports some indigestion without any thiago abdominal pain.? I talked to the patient's daughter on the phone.? We agreed upon IV fluid.? Clear liquid and stool softeners.? Senna S 2 tablet twice daily.? This might need escalation after hydration if colon is not cleared. 10/25: Patient was examined in the presence of nurse.? Dulcolax 10 mg oral and soapsuds enema.? Full liquid diet. 10/26: Patient moved bowel 3 times and passing flatus.? Discussed with the surgeon.? The surgeon consult note reviewed.? Continue MiraLAX and senna as.? Started on regular diet. 10/27: Patient has large bowel movement and had emesis in the morning. Discontinue MiraLAX and senna as. IV fluid Ringer lactate for dehydration. Cancel the discharge. (3) Debility: PLAN: Falls with debility: Patient fell and landed on his right side, about 3 hours prior to presentation to ED.? Patient had x-ray? of hip and pelvis x-ray and CT scan of abdomen which reported no evidence of femoral or pelvic f racture.? I individually reviewed the imaging and does not show femoral pelvic fracture. PT and OT ordered. 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 Patient is not participating in PT and OT evaluation therefore further determination cannot be made. 10/26:Patient will need home health at time of discharge probably tomorrow.? Continue PT. 10/28: Patient very poor historian and I am very concerned about patient going home. Will ask therapy to reevaluate determine if home with home care is ap propriate for him or not. Patient subjective feels that he is too unsafe to return home. Patient strongly encouraged to work with therapy. Patient informed that if he does not work with therapy as long as no other medical issues then he will be discharged. (4) Hypotension: PLAN: Hypotension: Blood pressure was recorded 88/50 twice around 6 AM.? Patient was given 1 L IV bolus normal saline.? Repeat blood pressure is still low 95/50.? Temperature is 100.5.? 1 L Ringer lactate ordered but patient refused and later on blood pressure improved to 122/76.? IV fluid normal saline 100 mill per hour.? Patient is agitated, grumpy and refusing to answer questions.? He said he had mild burning micturition but refusing to answer questions regarding HPI or review of systems.? Lactic acid and other labs ordered.? In ED patient's blood pressure was in normal range 146/97-152/87 as per age.? Later on blood pressure recovered. 10/25: Hypotension resolved.? SBP more than 90 mmHg.? Patient not having any symptoms of hypotension and dizziness lightheadedness chest pain or shortness of breath. PLAN: Plan Hyperbilirubinemia: improving. Total bili of 2.2 on presentation.? With history of elevated bili.? Monitor liver chemistry. DVT prophylaxis: Subcutaneous Lovenox ordered. Charges/Coding Visit Charges Inpatient E&M: 23410 Subs Hosp L2
[2022-10-28 09:02] VITALS: BP 158/79; PULSE 78; RESP 16; TEMP 37.2; O2SAT 95
[2022-10-28 15:03] VITALS: BP 128/64; PULSE 67; RESP 16; TEMP 37.2; O2SAT 95
[2022-10-28] MEDS: Smz/Tmp Ds Tablet 1 TABLET PO (16:59)
[2022-10-28 19:45] VITALS: BP 136/65; PULSE 79; RESP 18; TEMP 36.4; O2SAT 95
[2022-10-29] MEDS: Ibuprofen 600 MG Tablet PO (00:17)
[2022-10-29 02:37] VITALS: BP 98/51; PULSE 80; RESP 16; TEMP 37.2; O2SAT 94
--- NOTE | 2022-10-29 09:23 | PCM.PN.HOSP ---
Subjective Subjective Patient did work with therapy today Objective Data Objective Data Vital Signs: Vital Signs Temp Pulse Resp BP Pulse Ox O2 Del Method 37.2 C 80 16 98/51 L 94 Room Air 10/29/22 02:37 10/29/22 02:37 10/29/22 02:37 10/29/22 02:37 10/29/22 02:37 10/29/22 02:37 Oxygen Delivery Method Room Air Weight: 60.1 kg Body Mass Index (BMI) 17.9 Intake & Output: Intake and Output for Last 24 Hours 10/27/22 10/28/22 10/29/22 23:59 23:59 23:59 Intake Total 560 / 560 1216.50 / 1516.50 394 / 394 Output Total 950 / 1400 1175 / 1425 450 / 450 Balance -390 / -840 41.50 / 91.50 -56 / -56 Medical Nutrition Assessment Dietitian: Malnutrition Criteria Met Start: 10/24/22 11:19 Freq: Status: Active Protocol: Document 10/24/22 11:19 RMA (Rec: 10/24/22 11:19 RMA [id number]) Nutrition Malnutrition Evidence of Malnutrition Exists Yes Malnutrition (severe): Chronic,Social/Behavioral/ Environmental Evidenced By Suboptimal Energy Intake ( Severe),Weight Loss (Severe), Physical Changes (Moderate) Intake Problem Inadequate Oral Intake Etiology related to altered GI function /ileus Signs/Symptoms as evidenced by NPO Status Active Problem Clinical Problem Chronic Disease or Condition Related Malnutrition Etiology Severe protein-calorie malnutrition in the context of chronic disease/debility related to inadequate oral intake Signs/Symptoms as evidenced by ~12% wt loss x 6-12 months, ~4-5% wt loss x 4 months, BMI 18, muscle/fat wasting in the clavicle, orbital, temporal region, arms , legs and poor oral intake x past 3-6 months meeting less than 50% estimated nutrition needs; currently NPO Status Active Problem Recommendation Dietitian Recommendations/Changes Recommend advance diet as medically able to Regular. Add 120 ml ensure plus high protein 4 times per day w/ medpass as diet advanced from NPO. Additional ONS once PO established with meals. Consider nutrition support as needed for repletion of energy /protein. Lab / Micro Data Result Diagrams: 10/24/22 06:30 10/24/22 06:30 Micro: Microbiology 10/25/22 Unknown Urine, Clean Catch Urine Culture - Final ESBL Escherichia coli 10/23/22 20:55 Urine, Clean Catch Urine Culture - Final ESBL Escherichia coli Rhythm Strip Rhythm Strip: Sinus Rhythm Rate: 75 Ectopy: None Physical Exam Const alert and no apparent distress Constitutional Narrative: More interactive and establishing eye contact today. HEENT head/scalp atraumatic Assessment & Plan Assessment/Plan (1) Acute UTI: PLAN: UTI/mild left hydronephrosis: Patient complain of dysuria increased frequency.? Shows simple cyst extending from? lower pole of left kidney Urinalysis is abnormal, UA WBC 25-50 cells, LE 100, 3+ bacteria negative nitrite..? Started on Rocephin at the emergency department and continued.? Morning CBC on presentation showed white count of 8.0.? Trend. 10/25: Discussed with ID Dr. Anderson.? IV meropenem started along with repeat UA and urine culture.? Ceftriaxone discontinued.? Most likely Bactrim DS at the time of discharge with a total of 7 days of antibiotic. 10/26: Urologist consult reviewed.? Mild hydronephrosis.? No active surgical intervention needed.? Treat ESBL E. coli UTI. 10/27: Continue meropenem. At the time of discharge convert to oral Bactrim DS.? Follow-up with the urologist in 1 month for left hydronephrosis. 10/28: change abx to bactrim DS. Treat through the eighth (2) Ileus: PLAN: Small and large bowel ileus due to feces: Patient has chronic constipation and last bowel movement a day before admission.? CT abdomen individually reviewed and shows diffusely gastric and small bowel loops without obstruction.? Feces present throughout the colon without mass or obstruction. Patient reports some indigestion without any thiago abdominal pain.? I talked to the patient's daughter on the phone.? We agreed upon IV fluid.? Clear liquid and stool softeners.? Senna S 2 tablet twice daily.? This might need escalation after hydration if colon is not cleared. 10/25: Patient was examined in the presence of nurse.? Dulcolax 10 mg oral and soapsuds enema.? Full liquid diet. 10/26: Patient moved bowel 3 times and passing flatus.? Discussed with the surgeon.? The surgeon consult note reviewed.? Continue MiraLAX and senna as.? Started on regular diet. 10/27: Patient has large bowel movement and had emesis in the morning. Discontinue MiraLAX and senna as. IV fluid Ringer lactate for dehydration. Cancel the discharge. (3) Debility: PLAN: Falls with debility: Patient fell and landed on his right side, about 3 hours prior to presentation to ED.? Patient had x-ray? of hip and pelvis x-ray and CT scan of abdomen which reported no evidence of femoral or pelvic fracture.? I individually reviewed the imaging and does not show femoral pelvic fracture. PT and OT ordered. 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 Patient is not participating in PT and OT evaluation therefore further determination cannot be made. 10/26:Patient will need home health at time of discharge probably tomorrow.? Continue PT. 10/28: Patient very poor historian and I am very concerned about patient going home. Will ask therapy to reevaluate determine if home with home care is appropriate for him or not. Patient subjective feels that he is too unsafe to return home. Patient strongly encouraged to work with therapy. Patient informed that if he does not work with therapy as long as no other medical issues then he will be discharged. Seen by therapy. And feels that they can manage him with home health care at home. Patient can be discharged today. (4) Hypotension: PLAN: Hypotension: Blood pressure was recorded 88/50 twice around 6 AM.? Patient was given 1 L IV bolus normal saline.? Repeat blood pressure is still low 95/50.? Temperature is 100.5.? 1 L Ringer lactate ordered but patient refused and later on blood pressure improved to 122/76.? IV fluid normal saline 100 mill per hour.? Patient is agitated, grumpy and refusing to answer questions.? He said he had mild burning micturition but refusing to answer questions regarding HPI or review of systems.? Lactic acid and other labs ordered.? In ED patient's blood pressure was in normal range 146/97-152/87 as per age.? Later on blood pressure recovered. 10/25: Hypotension resolved.? SBP more than 90 mmHg.? Patient not having any symptoms of hypotension and dizziness lightheadedness chest pain or shortness of breath. PLAN: Plan Hyperbilirubinemia: improving. Total bili of 2.2 on presentation.? With history of elevated bili.? Monitor liver chemistry. Impproved. May follow up with GI as outpt. DVT prophylaxis: Subcutaneous Lovenox ordered.
[2022-10-29 09:40] VITALS: O2SAT 96
[2022-10-29 09:55] VITALS: BP 138/57; PULSE 72; RESP 18; TEMP 36.6; O2SAT 97
[2022-10-29] MEDS: Smz/Tmp Ds Tablet 1 TABLET PO ×2 (09:59→17:17)
[2022-10-29] MEDS: Acetaminophen 500 MG Tablet 1000 MG PO ×2 (09:59→17:16)
[2022-10-29] MEDS: Ondansetron 4 MG/2 ML Vial IV (09:59)
[2022-10-29] MEDS: 0.9% Saline Lock 10 ML Syringe IV (10:00)
--- NOTE | 2022-10-29 14:05 | CASEMGMT ---
ÁNGEL WOODWARD NOTE: Pt agreeable to working w/therapy today. ÁNGEL WOODWARD reviewed therapy notes and they state they feel pt is safe to return home. ÁNGEL WOODWARD placed call to pt's daughter, Frantz. She was made aware and states she is okay w/pt returning home today and she can pick him up when ready for discharge. She is aware [facility] slated for Saturday. Msg sent to Dr Becker re: therapy tx today, C has been set up, and dtr can pick pt up today to take him home. Call to Lilia @ [facility] and she was made aware pt discharging home today. Terrell BROCK RN, CM
--- NOTE | 2022-10-29 14:11 | DCINST_ITS ---
Discharge Instructions Diet Discharge Diet: Soft diet (for 3 days) and - Dressing / Incision Call your doctor if you observe: Fever of 101 or Higher, Coldness, Increased Pain, Numbness or Tingling, Change in Color, Inability to urinate, Inability to have a bowel movement, Shortness of breath, Dizziness, Swelling in the ankles, Chest pain, Increased palpitations (irregular heartbeat), Calf discomfort and Uncontrolled pain Follow Up Care Test Results: Test results from this visit will be discussed in further detail at your follow- up appointment, if applicable. Discharge Plan Admission Admit Date/Time: 10/23/22 22:36 Primary Reason for Your Visit: Ileus, ESBL E coli UTI Attending Provider: Ba Becker Primary Care Provider: Lidia Garcia Consulting Providers: Andrew Osuna ; Jerrod Oneil ; Randall Mattson ; Narciso Christianson Discharge Orders/Prescriptions Prescriptions: New polyethylene glycol 3350 17 gram Powder In Packet 17 g PO DAILY Qty: 30 0RF sennosides-docusate sodium [Stool Softener-Stimulant Laxat] 8.6-50 mg Tablet 2 tab PO BID PRN (Reason: CONSTIPATION) Qty: 60 0RF acetaminophen 500 mg Tablet 1,000 mg PO Q8 PRN (Reason: ARTHRITIS PAIN) Qty: 0 0RF sulfamethoxazole-trimethoprim 800-160 mg Tablet 1 tab PO BIDCM Qty: 6 0RF Discontinued ibuprofen 600 mg tablet 600 mg PO Q6H PRN (Reason: fever or pain) Qty: 20 0RF lorazepam 0.5 mg tablet 5 mg PO DAILY PRN PRN (Reason: Pain) Label Comments: TAKE 1 TABLET BY MOUTH EVERY 4 HOURS NEEDED FOR ANXIETY oxycodone 5 mg tablet 2.5 mg PO Q4H PRN PRN (Reason: Pain) Label Comments: TAKE 1/2 (ONE-HALF) OF A TABLET BY MOUTH EVERY 4 HOURS NEEDED FOR PAIN Referrals / Follow Up: Randall Mattson MD [Med Staff - Active Staff] - Within 1 Month (F/U for ileus) Jerrod Oneil MD [Med Staff - Active Staff] - Within 1 Month (FOR LEFT Hydronephrosis) Lidia Garcia DO [Primary Care Provider] - Within 2 Weeks Dominick Kelly DO [Med Staff - Active Staff] - Within 1 Month Disposition Disposition (needs filled in before D/C Order can be placed): Home Health Service
--- NOTE | 2022-10-29 14:14 | PCM.DC.SUM ---
Providers Date of Admission: 10/23/22 Primary Care Physician: Lidia Garcia, Consultations 10/25/22 13:36 Consult: Urology Routine Consulting Provider: Jerrod Oneil Reason for Consult: ESBL UTI, Left hydro with large cyst EMERGENT Consult: No Notified: Yes Date Notified: 10/25/22 Time Notified: 13:36 Method of Notification: Verbal 10/25/22 16:24 Consult: General Surgery Routine Consulting Provider: Randall Mattson Reason for Consult: small bowel ileus and colonic feces EMERGENT Consult: No Notified: Yes Date Notified: 10/25/22 Time Notified: 16:24 Method of Notification: Verbal Reason For Visit: MULITPLE FALLS, UTI, ILEUS Diagnosis Discharge Diagnosis (1) Acute UTI: Status: Acute Code(s): N39.0 - Urinary tract infection, site not specified Plan: UTI/mild left hydronephrosis: Patient complain of dysuria increased frequency.? Shows simple cyst extending from? lower pole of left kidney Urinalysis is abnormal, UA WBC 25-50 cells, LE 100, 3+ bacteria negative nitrite..? Started on Rocephin at the emergency department and continued.? Morning CBC on presentation showed white count of 8.0.? Trend. 10/25: Discussed with ID Dr. Anderson.? IV meropenem started along with repeat UA and urine culture.? Ceftriaxone discontinued.? Most likely Bactrim DS at the time of discharge with a total of 7 days of antibiotic. 10/26: Urologist consult reviewed.? Mild hydronephrosis.? No active surgical intervention needed.? Treat ESBL E. coli UTI. 10/27: Continue meropenem. At the time of discharge convert to oral Bactrim DS.? Follow-up with the urologist in 1 month for left hydronephrosis. 10/28: change abx to bactrim DS. Treat through the eighth (2) Ileus: Status: Acute Code(s): K56.7 - Ileus, unspecified Plan: Small and large bowel ileus due to feces: Patient has chronic constipation and last bowel movement a day before admission.? CT abdomen individually reviewed and shows diffusely gastric and small bowel loops without obstruction.? Feces present throughout the colon without mass or obstruction. Patient reports some indigestion without any thiago abdominal pain.? I talked to the patient's daughter on the phone.? We agreed upon IV fluid.? Clear liquid and stool softeners.? Senna S 2 tablet twice daily.? This might need escalation after hydration if colon is not cleared. 10/25: Patient was examined in the presence of nurse.? Dulcolax 10 mg oral and soapsuds enema.? Full liquid diet. 10/26: Patient moved bowel 3 times and passing flatus.? Discussed with the surgeon.? The surgeon consult note reviewed.? Continue MiraLAX and senna as.? Started on regular diet. 10/27: Patient has large bowel movement and had emesis in the morning. Discontinue MiraLAX and senna as. IV fluid Ringer lactate for dehydration. Cancel the discharge. (3) Debility: Status: Acute Code(s): R53.81 - Other malaise Plan: Falls with debility: Patient fell and landed on his right side, about 3 hours prior to presentation to ED.? Patient had x-ray? of hip and pelvis x-ray and CT scan of abdomen which reported no evidence of femoral or pelvic fracture.? I individually reviewed the imaging and does not show femoral pelvic fracture. PT and OT ordered. 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 Patient is not participating in PT and OT evaluation therefore further determination cannot be made. 10/26:Patient will need home health at time of discharge probably tomorrow.? Continue PT. 10/28: Patient very poor historian and I am very concerned about patient going home. Will ask therapy to reevaluate determine if home with home care is appropriate for him or not. Patient subjective feels that he is too unsafe to return home. Patient strongly encouraged to work with therapy. Patient informed that if he does not work with therapy as long as no other medical issues then he will be discharged. 10/29:Seen by therapy. And feels that they can manage him with home health care at home. Patient can be discharged today. Though patient has expressed desire during this admission not to work with therapy though did actually work with him today. (4) Hypotension: Status: Acute Code(s): I95.9 - Hypotension, unspecified Plan: Hypotension: Blood pressure was recorded 88/50 twice around 6 AM.? Patient was given 1 L IV bolus normal saline.? Repeat blood pressure is still low 95/50.? Temperature is 100.5.? 1 L Ringer lactate ordered but patient refused and later on blood pressure improved to 122/76.? IV fluid normal saline 100 mill per hour.? Patient is agitated, grumpy and refusing to answer questions.? He said he had mild burning micturition but refusing to answer questions regarding HPI or review of systems.? Lactic acid and other labs ordered.? In ED patient's blood pressure was in normal range 146/97-152/87 as per age.? Later on blood pressure recovered. 10/25: Hypotension resolved.? SBP more than 90 mmHg.? Patient not having any symptoms of hypotension and dizziness lightheadedness chest pain or shortness of breath. Plan Hyperbilirubinemia: improving. Total bili of 2.2 on presentation.? With history of elevated bili.? Monitor liver chemistry. Impproved. May follow up with GI as outpt. DVT prophylaxis: Subcutaneous Lovenox ordered. Medications at Discharge Home Medications acetaminophen 500 mg tablet 1,000 mg PO Q8 PRN ARTHRITIS PAIN #0 tabs 10/27/22 polyethylene glycol 3350 17 gram oral powder packet 17 g PO DAILY #30 ea 10/27/22 sennosides 8.6 mg-docusate sodium 50 mg tablet (Stool Softener-Stimulant Laxative) 2 tab PO BID PRN CONSTIPATION #60 tabs 10/27/22 sulfamethoxazole 800 mg-trimethoprim 160 mg tablet 1 tab PO BIDCM #6 tabs 10/29/22 Medical Records Data Medical Nutrition Assessment Dietitian: Malnutrition Criteria Met Start: 10/24/22 11:19 Freq: Status: Active Protocol: Document 10/29/22 14:05 AARON (Rec: 10/29/22 14:05 AARON [id number]) Nutrition Malnutrition Evidence of Malnutrition Exists Yes Malnutrition (severe): Chronic,Social/Behavioral/ Environmental Evidenced By Suboptimal Energy Intake ( Severe),Weight Loss (Severe), Physical Changes (Moderate) Intake Problem Inadequate Oral Intake Status Inactive Problem Clinical Problem Chronic Disease or Condition Related Malnutrition Etiology Severe protein-calorie malnutrition in the context of chronic disease/debility related to inadequate oral intake Signs/Symptoms as evidenced by ~12% wt loss x 6-12 months, ~4-5% wt loss x 4 months, BMI 18, muscle/fat wasting in the clavicle, orbital, temporal region, arms , legs and poor oral intake x past 3-6 months meeting less than 50% estimated nutrition needs Status Active Problem Recommendation Dietitian Recommendations/Changes Will continue Regular diet. Will order 120 ml ensure plus high protein 4 times per day w / medpass Will order ensure pudding or magic cup tid w/ meals for increased nutrition if consumed. Rec consider appetite stimulant to try to encourage increased po intake at meals. Weight / BMI Weight Weight: 60.1 kg Body Mass Index (BMI) 17.9 ABG / Lab / Microbiology Data Result Diagrams: 10/24/22 06:30 10/24/22 06:30 Microbiology: Microbiology 10/25/22 Unknown Urine, Clean Catch Urine Culture - Final ESBL Escherichia coli 10/23/22 20:55 Urine, Clean Catch Urine Culture - Final ESBL Escherichia coli D/C Instructions Discharge Diet: Soft diet (for 3 days) and - Call your doctor if you observe: Fever of 101 or Higher, Coldness, Increased Pain, Numbness or Tingling, Change in Color, Inability to urinate, Inability to have a bowel movement, Shortness of breath, Dizziness, Swelling in the ankles, Chest pain, Increased palpitations (irregular heartbeat), Calf discomfort and Uncontrolled pain Meaningful Use Info Meaningful Use Diagnoses (Choose all that apply): None applicable Discharge Plan Admission Admit Date/Time: 10/23/22 22:36 Primary Reason for Your Visit: Ileus, ESBL E coli UTI Attending Provider: Ba Becker Primary Care Provider: Lidia Garcia Consulting Providers: Andrew Osuna ; Jerrod Oneil ; Randall Mattson ; Narciso Christianson Discharge Orders/Prescriptions Prescriptions: New polyethylene glycol 3350 17 gram Powder In Packet 17 g PO DAILY Qty: 30 0RF sennosides-docusate sodium [Stool Softener-Stimulant Laxat] 8.6-50 mg Tablet 2 tab PO BID PRN (Reason: CONSTIPATION) Qty: 60 0RF acetaminophen 500 mg Tablet 1,000 mg PO Q8 PRN (Reason: ARTHRITIS PAIN) Qty: 0 0RF sulfamethoxazole-trimethoprim 800-160 mg Tablet 1 tab PO BIDCM Qty: 6 0RF Discontinued ibuprofen 600 mg tablet 600 mg PO Q6H PRN (Reason: fever or pain) Qty: 20 0RF lorazepam 0.5 mg tablet 5 mg PO DAILY PRN PRN (Reason: Pain) Label Comments: TAKE 1 TABLET BY MOUTH EVERY 4 HOURS NEEDED FOR ANXIETY oxycodone 5 mg tablet 2.5 mg PO Q4H PRN PRN (Reason: Pain) Label Comments: TAKE 1/2 (ONE-HALF) OF A TABLET BY MOUTH EVERY 4 HOURS NEEDED FOR PAIN Referrals / Follow Up: Randall Mattson MD [Med Staff - Active Staff] - Within 1 Month (F/U for ileus) Jerrod Oneil MD [Med Staff - Active Staff] - Within 1 Month (FOR LEFT Hydronephrosis) Lidia Garcia DO [Primary Care Provider] - Within 2 Weeks Dominick Kelly DO [Med Staff - Active Staff] - Within 1 Month Disposition Disposition (needs filled in before D/C Order can be placed): Home Health Service Charges/Coding Visit Charges Inpatient E&M: 62909 Disch Hosp
[2022-10-29 14:21] VITALS: BP 108/56; PULSE 68; RESP 18; TEMP 37.3; O2SAT 93
[2022-10-29] MEDS: Ensure Plus High Protein 120 ML LIQUID PO ×2 (14:22→17:17)
== END 2022-10-29 18:44 | disposition home health service (06) | DRG 690 ==
LOC: ED 23:41 → MS3 23:55
PROVIDERS: Internal Medicine; Admitting Provider Hospitalist; Emergency Provider Emergency Medicine; PCP Family Medicine
DX: N13.6 Pyonephrosis (principal); K56.7 Ileus, unspecified; Z16.12 Extended spectrum beta lactamase (ESBL) resistance; I95.9 Hypotension, unspecified; J43.9 Emphysema, unspecified; I25.10 Atherosclerotic heart disease of native coronary artery without angina pectoris; E80.7 Disorder of bilirubin metabolism, unspecified; K59.09 Other constipation; B96.20 Unspecified Escherichia coli [E. coli] as the cause of diseases classified elsewhere; R53.81 Other malaise; N28.1 Cyst of kidney, acquired; R45.1 Restlessness and agitation; R29.6 Repeated falls; Z87.891 Personal history of nicotine dependence
CPT/HCPCS: 36415; 71045; 73502; 74019; 74177; 80053; 81001; 82550; 84484; 85025; 85610; 85730; 87077; 87086; 87088; 87186; 93005; 97110; 97162; 97166; 97530; 97535; 99285; J2185; J7030; J7050; Q9967; A4216; J2405